=== PATIENT | male | born 1960 | race Caucasian/White ===

== ENCOUNTER 2019-02-27 14:38 | Inpatient (IN) | payer BC ==
--- NOTE | 2019-02-27 15:45 | PCM.HP ---
H&P History of Present Illness - General Date of Service: 02/27/19 Admit Problem/Dx: Admission Diagnosis/Problem Admission Diagnosis/Problem Cellulitis and abscess of foot Source of Information: Patient, Old Records History Limitations: Reports: No Limitations - History of Present Illness Onset of Symptoms: Reports: Gradual Duration of Symptoms: Reports: Week(s):, Chronic (since August of this year) Location: Reports: Lower Extremity, Right (foot, initially plantar aspect 1st distal metatarsal head now dorsal and plantar aspect, markedly worsened in past three days) Quality: Reports: Ache, Pressure Severity: Moderate Improves with: Reports: Rest, Other (elevation) Worsens with: Reports: Movement (walking, especially for extended periods) Context: Reports: Other (diabetes, complicated by morbid obesity) Associated Symptoms: Reports: Malaise, Other ("generally don't feel good last couple days") - Related Data Allergies/Adverse Reactions: Allergies Allergy/AdvReac Type Severity Reaction Status Date / Time No Known Allergies Allergy Verified 02/27/19 15:14 Home Medications: Home Meds Aspirin 325 mg PO DAILY 02/27/19 [History] Benazepril [Lotensin] 20 mg PO DAILY 02/27/19 [History] Dapagliflozin Propanediol [Farxiga] 10 mg PO DAILY 02/27/19 [History] Gluc 2KCl/Chondr/Lobo Hy/Hy Ac [Glucosamine & Chondroitin Cap] 1 cap PO BID 07/08 [History] Ibuprofen 400 mg PO BID@12,20 02/27/19 [History] Insulin Aspart [NovoLOG] 25 unit SUBCUT ACDINNER 02/27/19 [History] Insulin Aspart [NovoLOG] 28 unit SUBCUT ACBREAKFAST 02/27/19 [History] Insulin Aspart [NovoLOG] 28 unit SUBCUT ACLUNCH 02/27/19 [History] Insulin Detemir [Levemir Flextouch] 34 unit SUBCUT DAILY 02/27/19 [History] Insulin Detemir [Levemir Flextouch] 50 unit SUBCUT BEDTIME 02/27/19 [History] Magnesium Oxide/Mag AA Chelate [Magnesium] 300 mg PO DAILY 02/27/19 [History] Metoprolol Tartrate 25 mg PO BID 02/27/19 [History] Sulfamethoxazole/Trimethoprim [Bactrim Ds Tablet] 1 tab PO BID 02/27/19 [History ] atorvaSTATin Calcium [Lipitor] 40 mg PO DAILY 02/27/19 [History] metFORMIN [Glucophage] 1,000 mg PO BID 02/27/19 [History] Past Medical History Cardiovascular History: Reports: High Cholesterol, Hypertension Respiratory History: Reports: Sleep Apnea Other Respiratory History: uses CPAP Endocrine/Metabolic History: Reports: Diabetes, Type II, Obesity/BMI 30+ Other Endocrine/Metabolic History: insulin-dependent, with neuropathy and h/o foot ulcers Social & Family History - Tobacco Use Smoking Status *Q: Never Smoker - Caffeine Use Caffeine Use: Reports: Coffee - Recreational Drug Use Recreational Drug Use: No - Living Situation & Occupation Living situation: Reports: H&P Review of Systems - Review of Systems: Review Of Systems: ROS reveals no pertinent complaints other than HPI. Exam - Exam Exam: See Below - Vital Signs Vital Signs: Last Vital Signs Temp 98.6 F 02/27/19 14:50 Pulse 90 02/27/19 14:50 Resp 17 02/27/19 14:50 BP 134/62 02/27/19 14:50 Pulse Ox 95 02/27/19 14:50 Weight: 332 lb - Exam General: Alert, Oriented, 4 HEENT: Conjunctiva Clear, EACs Clear, EOMI, Hearing Intact, Mucosa Moist & [place] Neck: Supple, Trachea Midline Lungs: Clear to Auscultation, Normal Respiratory Effort Cardiovascular: Regular Rate, Regular Rhythm GI/Abdominal Exam: Normal Bowel Sounds, Soft, Non-Tender (Male) Exam: Deferred Rectal (Males) Exam: Deferred Back Exam: Normal Inspection Extremities: Other (marked swelling and erythema around the area of the R 1st MTP joint and great toe, with oozing wound dorsal aspect, maceration between 1st and 2nd toes and ulcer overlying plantar aspect 1st MTP joint) Skin: Warm, Dry, Wound ((see description above)) Neurological: Cranial Nerves Intact, Abnormal Gait Neuro Extensive - Mental Status: Alert, Oriented x3, Normal Mood/Affect, Memory Intact Psychiatric: Alert, Normal Affect, Normal Mood - Problem List (1) Cellulitis and abscess of foot SNOMED Code(s): 646037601, 069059021 ICD Code: L03.119 - CELLULITIS OF UNSPECIFIED PART OF LIMB; L02.619 - CUTANEOUS ABSCESS OF UNSPECIFIED FOOT Status: Acute Priority: High Current Visit: Yes Onset Date: ~09/06/18 Problem Details: First clinic visit for the cellulitis and diabetic was 09-06-18. He has had improvement but not resolution. He has been following with [facility] and Dr. Edis Tang, On Site Nurse on alternating weeks for the past couple months. Cellulitis symptoms acutely flared 2-3 days ago per pt. (2) HTN (hypertension) SNOMED Code(s): 68459378 ICD Code: I10 - ESSENTIAL (PRIMARY) HYPERTENSION Status: Chronic Priority : Medium Current Visit: Yes Qualifiers: Hypertension type: essential hypertension Qualified Code(s): I10 - Essential (primary) hypertension (3) Hyperlipemia SNOMED Code(s): 30061037 ICD Code: E78.5 - HYPERLIPIDEMIA, UNSPECIFIED Status: Chronic Priority: Medium Current Visit: Yes Qualifiers: Hyperlipidemia type: unspecified Qualified Code(s): E78.5 - Hyperlipidemia , unspecified (4) Obesity, Class III, BMI 40-49.9 (morbid obesity) SNOMED Code(s): 757797741, 418746304, [id number] ICD Code: E66.01 - MORBID (SEVERE) OBESITY DUE TO EXCESS CALORIES Status: Acute Current Visit: Yes Problem Details: complicating factor in healing of diabetic foot ulcers (5) Sleep apnea SNOMED Code(s): 78111677 ICD Code: G47.30 - SLEEP APNEA, UNSPECIFIED Status: Chronic Priority: Medium Current Visit: Yes Qualifiers: Sleep apnea type: obstructive Qualified Code(s): G47.33 - Obstructive sleep apnea (adult) (pediatric) (6) Diabetes mellitus due to underlying condition with complication SNOMED Code(s): 3195246, 77405520 ICD Code: E08.8 - DIABETES DUE TO UNDERLYING CONDITION W UNSP COMPLICATIONS Status: Chronic Priority: High Current Visit: Yes Problem Details: with neuropathy and h/o foot ulcers Problem List Initiated/Reviewed/Updated: Yes Orders Last 24hrs: Active Orders 24 hr Category Date Time Status Patient Status [ADT] Routine ADT 02/27/19 15:18 Ordered Accu Check [Blood Glucose Check, Bedside] [RC] BIDMEALS Care 02/27/19 15:35 Inactive Accu Check [Blood Glucose Check, Bedside] [RC] TIDMEALS Care 02/27/19 15:40 Ordered Bedrest Bathroom Privileges [RC] ASDIRECTED Care 02/27/19 15:18 Ordered Dressing Change [Wound Care] [RC] DAILY Care 02/27/19 15:32 Ordered Height and Weight [RC] UPON Care 02/27/19 15:18 Ordered May Shower [RC] ASDIRECTED Care 02/27/19 15:18 Ordered Oxygen Therapy [RC] PRN Care 02/27/19 15:18 Ordered VTE/DVT Education [RC] PER UNIT ROUTINE Care 02/27/19 15:18 Ordered Vital Signs [RC] Q4H Care 02/27/19 15:18 Ordered [place] [employer] Diet [DIET] Diet 02/27/19 Dinner Ordered C-REACTIVE PROTEIN [CHEM] AM Lab 02/28/19 05:11 Ordered C-REACTIVE PROTEIN [CHEM] AM Lab 03/01/19 05:11 Ordered C-REACTIVE PROTEIN [CHEM] AM Lab 03/02/19 05:11 Ordered C-REACTIVE PROTEIN [CHEM] AM Lab 03/03/19 05:11 Ordered CBC WITH AUTO DIFF [HEME] AM Lab 02/28/19 05:11 Ordered CBC WITH AUTO DIFF [HEME] AM Lab 03/01/19 05:11 Ordered CBC WITH AUTO DIFF [HEME] AM Lab 03/02/19 05:11 Ordered CBC WITH AUTO DIFF [HEME] AM Lab 03/03/19 05:11 Ordered COMPREHENSIVE METABOLIC PN,CMP [CHEM] AM Lab 02/28/19 05:11 Ordered COMPREHENSIVE METABOLIC PN,CMP [CHEM] AM Lab 03/01/19 05:11 Ordered COMPREHENSIVE METABOLIC PN,CMP [CHEM] AM Lab 03/02/19 05:11 Ordered COMPREHENSIVE METABOLIC PN,CMP [CHEM] AM Lab 03/03/19 05:11 Ordered CULTURE BLOOD [BC] Stat Lab 02/27/19 15:22 Ordered CULTURE BLOOD [BC] Stat Lab 02/27/19 15:22 Ordered CULTURE WOUND [RM] Stat Lab 02/27/19 15:18 Ordered LACTIC ACID [CHEM] Routine Lab 02/28/19 05:11 Ordered MAGNESIUM [CHEM] Routine Lab 02/28/19 05:11 Ordered Benazepril Med 02/28/19 08:00 Ordered 20 mg PO DAILY Dapagliflozin Propanediol [Farxiga] Med 02/28/19 08:00 Ordered 10 mg PO DAILY Enoxaparin [Lovenox] Med 02/27/19 15:30 Ordered 150 mg SUBCUT Q12H Insulin Aspart [NovoLOG] Med 02/27/19 15:45 Ordered 25 unit SUBCUT ACDINNER Insulin Aspart [NovoLOG] Med 02/28/19 07:30 Ordered 28 unit SUBCUT ACBREAKFAST Insulin Aspart [NovoLOG] Med 02/27/19 15:45 Ordered 28 unit SUBCUT ACLUNCH Insulin Detemir [Levemir Flextouch] Med 02/28/19 08:00 Ordered 34 unit SUBCUT DAILY Insulin Detemir [Levemir Flextouch] Med 02/27/19 20:00 Ordered 50 unit SUBCUT BEDTIME Magnesium Oxide/Mag AA Chelate [Magnesium] Med 02/28/19 08:00 Ordered 300 mg PO DAILY Metoprolol Tartrate [Lopressor] Med 02/27/19 18:00 Ordered 25 mg PO BID Pharmacy to Dose - Vancomycin Med 02/27/19 15:30 Ordered 1 dose .XX ASDIRECTED Sodium Chloride 0.9% [Saline Flush] Med 02/27/19 15:18 Ordered 10 ml FLUSH ASDIRECTED PRN atorvaSTATin [Lipitor] Med 02/27/19 20:00 Ordered 40 mg PO DAILY cefTAZidime Pentahydrate [Fortaz] Med 02/27/19 20:00 Ordered 1 gm IVPUSH Q12HR metFORMIN [Glucophage] Med 02/27/19 18:00 Ordered 1,000 mg PO BID Blood Culture x2 Reflex Set [OM.PC] Stat Oth 02/27/19 15:18 Ordered Saline Lock Insert [OM.PC] Routine Oth 02/27/19 15:18 Ordered Resuscitation Status Routine Resus Stat 02/27/19 15:18 Ordered Medication Orders Atorvastatin Calcium (Lipitor) 40 mg PO DAILY [facility] Ceftazidime (Fortaz) 1 gm IVPUSH Q12HR [facility] Enoxaparin Sodium (Lovenox) 150 mg SUBCUT Q12H [facility] Metformin HCl (Glucophage) 1,000 mg PO BID [facility] Metoprolol Tartrate (Lopressor) 25 mg PO BID [facility] Non-Formulary Medication (Benazepril) 20 mg PO DAILY [facility] Non-Formulary Medication (Dapagliflozin Propanediol [Farxiga]) 10 mg PO DAILY [facility] Non-Formulary Medication (Insulin Aspart [Novolog]) 25 unit SUBCUT ACDINNER [facility] Non-Formulary Medication (Insulin Aspart [Novolog]) 28 unit SUBCUT ACBREAKFAST [facility] Non-Formulary Medication (Insulin Aspart [Novolog]) 28 unit SUBCUT ACLUNCH [facility] Non-Formulary Medication (Insulin Detemir [Levemir Flextouch]) 34 unit SUBCUT DAILY [facility] Non-Formulary Medication (Insulin Detemir [Levemir Flextouch]) 50 unit SUBCUT BEDTIME [facility] Non-Formulary Medication (Magnesium Oxide/Mag Aa Chelate [Magnesium]) 300 mg PO DAILY [facility] Sodium Chloride (Saline Flush) 10 ml FLUSH ASDIRECTED PRN PRN Reason: Keep Vein Open Vancomycin HCl (Pharmacy To Dose - Vancomycin) 1 dose .XX ASDIRECTED [facility]CUAL Assessment/Plan Comment:: 02-27-19 Gabriella Smallwood PA-C 58 yr-old male patient admitted to [facility] for treatment of acute R foot cellulitis with diabetic ulcer, OP therapy failure. I did talk to Dr. Edis Tang, On Site Nurse earlier this week who is concerned that we have not been able to get this healed although it has made improvement. However today patient tells me that three nights ago he had lots of pain in this area, and two days ago the redness and swelling markedly worsened (this was after his last visit with Dr. Tang). He is started on IV Fortaz and Vanco. Lactic acid 2.7 today, will repeat with AM labs. Wound culture taken from drainage dorsal aspect of the 1st MTP joint/ toe. Dr. Tang had obtained a sample of the drainage from the ulcer earlier this week but I have not received a report on that yet. Bedrest is ordered to offload pressure on the foot, so subcut Lovenox is ordered prophylactically. His will bring in his CPAP from home, and we will continue home settings.
[2019-02-27] MEDS ORDERED: Enoxaparin 100 MG/1 ML Syringe SUBCUT SCH (16:00)
[2019-02-27] MEDS ORDERED: Vancomycin 1.5 GM in Sodium Chloride 0.9% 500 ML IV SCH (16:00)
[2019-02-27] MEDS: Vancomycin 2 GM in Sodium Chloride 0.9% 500 ML IV SCH (17:04)
[2019-02-27] MEDS: Sodium Chloride 0.9% 10 ML Syringe FLUSH PRN ×2 (17:05→19:44)
[2019-02-27] MEDS: Insulin Lispro 100 Units/ML 3 ML Vial SUBCUT SCH (18:03)
[2019-02-27] MEDS: metFORMIN 500 MG Tab PO SCH (18:06)
[2019-02-27] MEDS: Metoprolol Tartrate 25 MG Tab PO SCH (18:06)
[2019-02-27] MEDS: cefTAZidime 1 GM Vial IVPUSH SCH (19:44)
[2019-02-27] MEDS: atorvaSTATin 40 MG Tab PO SCH (19:49)
[2019-02-27] MEDS: Insulin Glarg,Human.Rec.Analog 100 UNIT/ML ML SUBCUT SCH (19:50)
[2019-02-27] MEDS: Enoxaparin 100 MG/1 ML Syringe SUBCUT SCH (19:54)
[2019-02-27] MEDS: Acetaminophen 325 MG Tab PO PRN (23:07)
[2019-02-28] MEDS ORDERED: metroNIDAZOLE/Normal Saline 500 MG in Premix Bag 1 BAG IV ONE (00:45)
[2019-02-28] MEDS: Vancomycin 2 GM in Sodium Chloride 0.9% 500 ML IV SCH ×2 (04:15→16:30)
[2019-02-28 07:27] LABS: CHLORIDE,CL 100 mmol/L (98-107); SODIUM,NA 137 mmol/L (136-145)
[2019-02-28] MEDS ORDERED: Insulin Lispro 100 Units/ML 3 ML Vial SUBCUT SCH ×2 (07:30→11:30)
[2019-02-28] MEDS: Insulin Glarg,Human.Rec.Analog 100 UNIT/ML ML SUBCUT SCH ×2 (08:23→20:58)
[2019-02-28] MEDS: Enoxaparin 100 MG/1 ML Syringe SUBCUT SCH (08:25)
[2019-02-28] MEDS: Metoprolol Tartrate 25 MG Tab PO SCH ×2 (08:29→21:02)
[2019-02-28] MEDS: DAPAGLIFLOZIN PROPANEDIOL 10 MG PO SCH (08:29)
[2019-02-28] MEDS: Benazepril 10 MG Tab PO SCH (08:30)
[2019-02-28] MEDS: atorvaSTATin 40 MG Tab PO SCH (08:30)
[2019-02-28] MEDS: metFORMIN 500 MG Tab PO SCH ×2 (08:31→17:32)
[2019-02-28] MEDS: cefTAZidime 1 GM Vial IVPUSH SCH (08:44)
[2019-02-28] MEDS: Sodium Chloride 0.9% 10 ML Syringe FLUSH PRN ×2 (08:46→09:53)
[2019-02-28] MEDS: metroNIDAZOLE/Normal Saline 500 MG in Premix Bag 1 BAG IV SCH ×2 (09:50→19:29)
--- NOTE | 2019-02-28 09:51 | PCM.SN ---
- Free Text/Narrative Note: 02-28-[address] called to say the culture he had taken 02-25 has grown out a coag- staph so far (that sample was taken from the ulcer).
[2019-02-28] MEDS: Magnesium Oxide 400 MG Tab PO SCH (11:21)
[2019-02-28] MEDS: Insulin Lispro 100 Units/ML 3 ML Vial SUBCUT SCH (17:31)
[2019-02-28] MEDS ORDERED: cefTRIAXone 2 GM Vial IVPUSH SCH (20:00)
[2019-02-28] MEDS: cefTRIAXone 1 GM in Sodium Chloride 0.9% 100 ML IV SCH (20:53)
[2019-02-28] MEDS: Sodium Chloride 0.9% 10 ML Syringe FLUSH SCH (21:03)
--- NOTE | 2019-02-28 23:22 | PCM.PN ---
- General Info Date of Service: 02/28/19 Admission Dx/Problem (Free Text): Admission Diagnosis/Problem Admission Diagnosis/Problem Cellulitis and abscess of foot Functional Status: Reports: Pain Controlled - Review of Systems General: Reports: No Symptoms HEENT: Reports: No Symptoms Pulmonary: Reports: No Symptoms Cardiovascular: Reports: No Symptoms Gastrointestinal: Reports: No Symptoms Genitourinary: Reports: No Symptoms Musculoskeletal: Reports: Foot Pain (swelling decreasing) Skin: Reports: Other (redness in foot decreasing) Neurological: Reports: Pre-Existing Deficit (peripheral neuropathy) Psychiatric: Reports: No Symptoms - Patient Data Vitals - Most Recent: Last Vital Signs Temp 98.1 F 02/28/19 20:00 Pulse 70 02/28/19 21:02 Resp 16 02/28/19 20:00 BP 110/50 L 02/28/19 21:02 Pulse Ox 97 02/28/19 20:00 Weight - Most Recent: 332 lb I&O - Last 24 Hours: Intake & Output 02/28/19 02/28/19 03/01/19 14:59 22:59 06:59 Intake Total 2340 900 Balance 2340 900 Lab Results Last 24 Hours: Laboratory Results - last 24 hr 02/27/19 02/28/19 02/28/19 Range/Units 23:57 06:35 06:35 WBC 8.7 (4.0-10.2) K/uL RBC 4.35 (4.33-5.41) M/uL Hgb 13.0 L (13.1-16.8) g/dL Hct 38.6 L (39.0-49.0) % MCV 88.7 (84.0-98.0) fL MCH 29.9 (28.2-33.3) pg MCHC 33.7 (31.7-36.0) g/dL RDW 14.1 (11.2-14.1) % Plt Count 284 (150-350) K/uL Neut % (Auto) 69.0 (45.0-80.0) % Lymph % (Auto) 17.9 (10.0-50.0) % [place] % (Auto) 8.0 (2.0-14.0) % Eos % (Auto) 4.4 (0.0-5.0) % Baso % (Auto) 0.7 (0.0-2.0) % Neut # (Auto) 6.03 (1.40-7.00) K/uL Lymph # (Auto) 1.56 (0.50-3.50) K/uL [place] # (Auto) 0.70 (0.00-1.00) K/uL Eos # (Auto) 0.38 (0.00-0.50) K/uL Baso # (Auto) 0.06 (0.00-0.20) K/uL Sodium 137 (136-145) mmol/L Potassium 4.2 (3.5-5.1) mmol/L Chloride 100 (98-107) mmol/L Carbon Dioxide 26.8 (21.0-32.0) mmol/L BUN 20 H (7-18) mg/dL Creatinine 0.78 (0.51-1.17) mg/dL Est Cr Clr Drug Dosing 111.92 mL/min Estimated GFR (MDRD) > 60 mL/min Glucose 180 H (74-106) mg/dL POC Glucose 116 H (65-110) mg/dl Lactic Acid (0.4-2.0) mmol/L Calcium 8.3 L (8.5-10.1) mg/dL Magnesium 1.9 (1.8-2.4) mg/dL Total Bilirubin 0.4 (0.2-1.0) mg/dL AST 17 (15-37) U/L ALT 29 (12-78) U/L Alkaline Phosphatase 118 H (46-116) IU/L C-Reactive Protein 4.7 H (<=0.9) mg/dL Total Protein 6.5 (6.4-8.2) g/dL Albumin 3.0 L (3.4-5.0) g/dL Vancomycin Trough (10-20) ug/mL 02/28/19 02/28/19 02/28/19 Range/Units 06:35 07:22 11:19 WBC (4.0-10.2) K/uL RBC (4.33-5.41) M/uL Hgb (13.1-16.8) g/dL Hct (39.0-49.0) % MCV (84.0-98.0) fL MCH (28.2-33.3) pg MCHC (31.7-36.0) g/dL RDW (11.2-14.1) % Plt Count (150-350) K/uL Neut % (Auto) (45.0-80.0) % Lymph % (Auto) (10.0-50.0) % [place] % (Auto) (2.0-14.0) % Eos % (Auto) (0.0-5.0) % Baso % (Auto) (0.0-2.0) % Neut # (Auto) (1.40-7.00) K/uL Lymph # (Auto) (0.50-3.50) K/uL [place] # (Auto) (0.00-1.00) K/uL Eos # (Auto) (0.00-0.50) K/uL Baso # (Auto) (0.00-0.20) K/uL Sodium (136-145) mmol/L Potassium (3.5-5.1) mmol/L Chloride (98-107) mmol/L Carbon Dioxide (21.0-32.0) mmol/L BUN (7-18) mg/dL Creatinine (0.51-1.17) mg/dL Est Cr Clr Drug Dosing mL/min Estimated GFR (MDRD) mL/min Glucose (74-106) mg/dL POC Glucose 179 H 145 H (65-110) mg/dl Lactic Acid 0.9 (0.4-2.0) mmol/L Calcium (8.5-10.1) mg/dL Magnesium (1.8-2.4) mg/dL Total Bilirubin (0.2-1.0) mg/dL AST (15-37) U/L ALT (12-78) U/L Alkaline Phosphatase (46-116) IU/L C-Reactive Protein (<=0.9) mg/dL Total Protein (6.4-8.2) g/dL Albumin (3.4-5.0) g/dL Vancomycin Trough (10-20) ug/mL 02/28/19 02/28/19 Range/Units 15:23 17:02 WBC (4.0-10.2) K/uL RBC (4.33-5.41) M/uL Hgb (13.1-16.8) g/dL Hct (39.0-49.0) % MCV (84.0-98.0) fL MCH (28.2-33.3) pg MCHC (31.7-36.0) g/dL RDW (11.2-14.1) % Plt Count (150-350) K/uL Neut % (Auto) (45.0-80.0) % Lymph % (Auto) (10.0-50.0) % [place] % (Auto) (2.0-14.0) % Eos % (Auto) (0.0-5.0) % Baso % (Auto) (0.0-2.0) % Neut # (Auto) (1.40-7.00) K/uL Lymph # (Auto) (0.50-3.50) K/uL [place] # (Auto) (0.00-1.00) K/uL Eos # (Auto) (0.00-0.50) K/uL Baso # (Auto) (0.00-0.20) K/uL Sodium (136-145) mmol/L Potassium (3.5-5.1) mmol/L Chloride (98-107) mmol/L Carbon Dioxide (21.0-32.0) mmol/L BUN (7-18) mg/dL Creatinine (0.51-1.17) mg/dL Est Cr Clr Drug Dosing mL/min Estimated GFR (MDRD) mL/min Glucose (74-106) mg/dL POC Glucose 85 (65-110) mg/dl Lactic Acid (0.4-2.0) mmol/L Calcium (8.5-10.1) mg/dL Magnesium (1.8-2.4) mg/dL Total Bilirubin (0.2-1.0) mg/dL AST (15-37) U/L ALT (12-78) U/L Alkaline Phosphatase (46-116) IU/L C-Reactive Protein (<=0.9) mg/dL Total Protein (6.4-8.2) g/dL Albumin (3.4-5.0) g/dL Vancomycin Trough 11.5 (10-20) ug/mL [place] Results Last 24 Hours: Microbiology 02/27/19 16:20 Aerobic Blood Culture - Preliminary Blood - Venous - Lab Draw NO GROWTH AFTER 1 DAY Anaerobic Blood Culture - Preliminary NO GROWTH AFTER 1 DAY 07/11/19 15:45 Aerobic Blood Culture - Preliminary Blood - Venous NO GROWTH AFTER 1 DAY Anaerobic Blood Culture - Preliminary NO GROWTH AFTER 1 DAY 02/27/19 15:00 Gram Stain - Final Foot, Right Med Orders - Current: Current Medications Acetaminophen (Tylenol) 650 mg PO Q4H PRN PRN Reason: pain, fever >100.5 Last Admin: 02/27/19 23:07 Dose: 650 mg Atorvastatin Calcium (Lipitor) 40 mg PO DAILY [facility] Last Admin: 02/28/19 08:30 Dose: 40 mg Benazepril HCl (Lotensin) 20 mg PO DAILY [facility] Last Admin: 02/28/19 08:30 Dose: 20 mg Enoxaparin Sodium (Lovenox) 40 mg SUBCUT DAILY [facility] Vancomycin HCl 2 gm/ Sodium (Chloride) 500 mls @ 220 mls/hr IV Q12H [facility] Last Admin: 02/28/19 16:30 Dose: 220 mls/hr Metronidazole 500 mg/ Premix 100 mls @ 100 mls/hr IV Q8H [facility] Last Admin: 02/28/19 19:29 Dose: 100 mls/hr Ceftriaxone Sodium 1 gm/ (Sodium Chloride) 100 mls @ 200 mls/hr IV Q12H [facility] Last Admin: 02/28/19 20:53 Dose: 200 mls/hr Insulin Glargine (Lantus) 34 unit SUBCUT DAILY [facility] Last Admin: 02/28/19 08:23 Dose: 34 units Insulin Glargine (Lantus) 50 unit SUBCUT BEDTIME [facility] Last Admin: 02/28/19 20:58 Dose: 50 unit Insulin Human Lispro (Humalog) 25 unit SUBCUT DAILY@1730 [facility] Last Admin: 02/28/19 17:31 Dose: 25 units Insulin Human Lispro (Humalog) 28 unit SUBCUT ACBREAKFAST [facility] Last Admin: 02/28/19 08:21 Dose: 28 units Insulin Human Lispro (Humalog) 28 unit SUBCUT DAILY@1130 [facility] Last Admin: 02/28/19 11:19 Dose: 28 units Magnesium Oxide (Magnesium Oxide) 400 mg PO DAILY [facility] Last Admin: 02/28/19 11:21 Dose: 400 mg Metformin HCl (Glucophage) 1,000 mg PO BID [facility] Last Admin: 02/28/19 17:32 Dose: 1,000 mg Metoprolol Tartrate (Lopressor) 25 mg PO Q12HR [facility] Last Admin: 02/28/19 21:02 Dose: 25 mg #Own Med# Dapagliflozin Propanediol [Farxiga ] 10 Mg) 10 mg PO DAILY [facility] Last Admin: 02/28/19 08:29 Dose: 10 mg Sodium Chloride (Saline Flush) 10 ml FLUSH ASDIRECTED PRN PRN Reason: Keep Vein Open Last Admin: 02/28/19 09:53 Dose: 10 ml Sodium Chloride (Saline Flush) 10 ml FLUSH Q12HR [facility] Last Admin: 02/28/19 21:03 Dose: 10 ml Vancomycin HCl (Pharmacy To Dose - Vancomycin) 1 dose .XX ASDIRECTED [facility] Discontinued Medications Ceftazidime (Fortaz) 1 gm IVPUSH Q12HR [facility] Last Admin: 02/28/19 08:44 Dose: 1 gm Ceftriaxone Sodium (Rocephin) 1 gm IVPUSH Q12HR [facility] Enoxaparin Sodium (Lovenox) 150 mg SUBCUT Q12H [facility] Last Admin: 02/27/19 17:06 Dose: 150 mg Enoxaparin Sodium (Lovenox) 150 mg SUBCUT Q12H [facility] Last Admin: 02/28/19 08:25 Dose: 150 mg Metronidazole 500 mg/ Premix 100 mls @ 100 mls/hr IV ONETIME ONE Stop: 02/28/19 01:44 Last Admin: 02/28/19 00:56 Dose: 100 mls/hr Metoprolol Tartrate (Lopressor) 25 mg PO BID [facility] Last Admin: 02/28/19 08:29 Dose: 25 mg - Exam Quality Assessment: DVT Prophylaxis, Skin Breakdown (foot diabetic ulcer) General: Alert, Cooperative, No Acute Distress HEENT: Mucous Membr. Moist/[place] Neck: Trachea Midline, No JVD Lungs: Clear to Auscultation, Normal Respiratory Effort Cardiovascular: Regular Rate, Regular Rhythm GI/Abdominal Exam: Soft, Non-Tender, No Distention (Male) Exam: Deferred Back Exam: Normal Inspection Extremities: Pedal Edema, Increased Warmth (improving), Redness (improving) Skin: Warm, Dry, Intact Wound/Incisions: Drainage, Erythema Improving Neurological: No New Focal Deficit Psy/Mental Status: Alert, Normal Affect, Normal Mood - Problem List & Annotations (1) Diabetes mellitus due to underlying condition with foot ulcer SNOMED Code(s): 4461389 Code(s): E08.621 - DIABETES MELLITUS DUE TO UNDERLYING CONDITION W FOOT ULCER ; L97.509 - NON-PRESSURE CHRONIC ULCER OTH PRT UNSP FOOT W UNSP SEVERITY Status: Acute Priority: High Current Visit: Yes Qualifiers: Diabetes mellitus termination clerk insulin use: with termination clerk use Qualified Code( s): E08.621 - Diabetes mellitus due to underlying condition with foot ulcer; L97.509 - Non-pressure chronic ulcer of other part of unspecified foot with unspecified severity; Z79.4 - termite control servicer (current) use of insulin (2) Cellulitis and abscess of foot SNOMED Code(s): 471224617, 070518769 Code(s): L03.119 - CELLULITIS OF UNSPECIFIED PART OF LIMB; L02.619 - CUTANEOUS ABSCESS OF UNSPECIFIED FOOT Status: Acute Priority: High Current Visit: Yes Onset Date: ~09/06/18 Annotation/Comment:: First clinic visit for the cellulitis and diabetic was 09-06-18. He has had improvement but not resolution. He has been following with [facility] and Dr. Edis Tang, Chief Estimator on alternating weeks for the past couple months. Cellulitis symptoms acutely flared 2-3 days ago per pt. (3) Obesity, Class III, BMI 40-49.9 (morbid obesity) SNOMED Code(s): 923278726, 590945321, 38186521835644 Code(s): E66.01 - MORBID (SEVERE) OBESITY DUE TO EXCESS CALORIES Status: Acute Current Visit: Yes Annotation/Comment:: complicating factor in healing of diabetic foot ulcers (4) HTN (hypertension) SNOMED Code(s): 67357977 Code(s): I10 - ESSENTIAL (PRIMARY) HYPERTENSION Status: Chronic Priority : Medium Current Visit: Yes Qualifiers: Hypertension type: essential hypertension Qualified Code(s): I10 - Essential (primary) hypertension (5) Hyperlipemia SNOMED Code(s): 41198695 Code(s): E78.5 - HYPERLIPIDEMIA, UNSPECIFIED Status: Chronic Priority: Medium Current Visit: Yes Qualifiers: Hyperlipidemia type: unspecified Qualified Code(s): E78.5 - Hyperlipidemia , unspecified (6) Sleep apnea SNOMED Code(s): 87348788 Code(s): G47.30 - SLEEP APNEA, UNSPECIFIED Status: Chronic Priority: Medium Current Visit: Yes Qualifiers: Sleep apnea type: obstructive Qualified Code(s): G47.33 - Obstructive sleep apnea (adult) (pediatric) - Problem List Review Problem List Initiated/Reviewed/Updated: Yes - My Orders Last 24 Hours: My Active Orders 02/27/19 22:51 Acetaminophen [Tylenol] 650 mg PO Q4H PRN 02/28/19 10:00 metroNIDAZOLE/Normal Saline [Flagyl 500 MG in NS 100 ML] 500 mg Premix Bag 1 bag IV Q8H 02/28/19 20:00 Metoprolol Tartrate [Lopressor] 25 mg PO Q12HR Sodium Chloride 0.9% [Saline Flush] 10 ml FLUSH Q12HR cefTRIAXone [Rocephin] 1 gm Sodium Chloride 0.9% [Normal Saline] 100 ml IV Q12H 03/01/19 05:11 MAGNESIUM [CHEM] Routine 03/01/19 08:00 Enoxaparin [Lovenox] 40 mg SUBCUT DAILY - Plan Plan:: 02-27-19 Gabriella Smallwood PA-C 58 yr-old male patient admitted to status for treatment of acute R foot cellulitis with diabetic ulcer, OP therapy failure. I did talk to Dr. Edis Tang, Chief Estimator earlier this week who is concerned that we have not been able to get this healed although it has made improvement. However today patient tells me that three nights ago he had lots of pain in this area, and two days ago the redness and swelling markedly worsened (this was after his last visit with Dr. Tang). He is started on IV Fortaz and Vanco. Lactic acid 2.7 today, will repeat with AM labs. Wound culture taken from drainage dorsal aspect of the 1st MTP joint/ toe. Dr. Tang had obtained a sample of the drainage from the ulcer earlier this week but I have not received a report on that yet. Bedrest is ordered to offload pressure on the foot, so subcut Lovenox is ordered prophylactically. His will bring in his CPAP from home, and we will continue home settings. 02/28/19 Ingrid Stack MD Swelling and redness have decreased in the right foot. Initial C&S staph. Continue IV antibiotics.
[2019-03-01] MEDS: metroNIDAZOLE/Normal Saline 500 MG in Premix Bag 1 BAG IV SCH ×3 (03:18→17:59)
[2019-03-01] MEDS: Sodium Chloride 0.9% 10 ML Syringe FLUSH PRN ×2 (03:19→10:16)
[2019-03-01] MEDS: Vancomycin 2 GM in Sodium Chloride 0.9% 500 ML IV SCH ×2 (03:20→15:31)
[2019-03-01 07:25] LABS: CHLORIDE,CL 102 mmol/L (98-107); SODIUM,NA 140 mmol/L (136-145)
[2019-03-01] MEDS: Enoxaparin 40 MG/0.4 ML Syringe SUBCUT SCH (07:46)
[2019-03-01] MEDS: cefTRIAXone 1 GM in Sodium Chloride 0.9% 100 ML IV SCH ×2 (07:46→19:56)
[2019-03-01] MEDS: Sodium Chloride 0.9% 10 ML Syringe FLUSH SCH ×2 (07:48→20:03)
[2019-03-01] MEDS: Insulin Glarg,Human.Rec.Analog 100 UNIT/ML ML SUBCUT SCH ×2 (07:48→20:38)
[2019-03-01] MEDS: Insulin Lispro 100 Units/ML 3 ML Vial SUBCUT SCH ×3 (07:52→20:24)
[2019-03-01] MEDS: DAPAGLIFLOZIN PROPANEDIOL 10 MG PO SCH (07:53)
[2019-03-01] MEDS: Metoprolol Tartrate 25 MG Tab PO SCH ×2 (07:54→19:55)
[2019-03-01] MEDS: Benazepril 10 MG Tab PO SCH (07:54)
[2019-03-01] MEDS: metFORMIN 500 MG Tab PO SCH ×2 (07:55→17:58)
[2019-03-01] MEDS: atorvaSTATin 40 MG Tab PO SCH (07:55)
[2019-03-01] MEDS: Magnesium Oxide 400 MG Tab PO SCH (07:56)
[2019-03-01] MEDS: Acetaminophen 325 MG Tab PO PRN ×2 (12:31→20:34)
[2019-03-01] MEDS ORDERED: Insulin Lispro 100 Units/ML 3 ML Vial SUBCUT ONE (18:30)
[2019-03-01] MEDS ORDERED: Insulin Glarg,Human.Rec.Analog 100 UNIT/ML ML SUBCUT SCH (20:00)
--- NOTE | 2019-03-01 23:20 | PCM.PN ---
- General Info Date of Service: 03/01/19 Admission Dx/Problem (Free Text): Admission Diagnosis/Problem Admission Diagnosis/Problem Cellulitis and abscess of foot Functional Status: Reports: Pain Controlled - Review of Systems General: Reports: Other (low blood sugars) HEENT: Reports: No Symptoms Pulmonary: Reports: No Symptoms Cardiovascular: Reports: No Symptoms Gastrointestinal: Reports: No Symptoms Genitourinary: Reports: No Symptoms Musculoskeletal: Reports: Foot Pain (right has decreased) Skin: Reports: No Symptoms Neurological: Reports: No Symptoms Psychiatric: Reports: No Symptoms - Patient Data Vitals - Most Recent: Last Vital Signs Temp 98.2 F 03/01/19 19:30 Pulse 74 03/01/19 19:55 Resp 16 03/01/19 19:30 BP 113/59 L 03/01/19 19:55 Pulse Ox 96 03/01/19 19:30 Weight - Most Recent: 332 lb I&O - Last 24 Hours: Intake & Output 03/01/19 03/01/19 03/02/19 14:59 22:59 06:59 Intake Total 540 300 Balance 540 300 Lab Results Last 24 Hours: Laboratory Results - last 24 hr 03/01/19 03/01/19 03/01/19 Range/Units 07:00 07:00 07:21 WBC 7.6 (4.0-10.2) K/uL RBC 4.46 (4.33-5.41) M/uL Hgb 13.3 (13.1-16.8) g/dL Hct 39.7 (39.0-49.0) % MCV 89.0 (84.0-98.0) fL MCH 29.8 (28.2-33.3) pg MCHC 33.5 (31.7-36.0) g/dL RDW 14.1 (11.2-14.1) % Plt Count 264 (150-350) K/uL Neut % (Auto) 69.8 (45.0-80.0) % Lymph % (Auto) 16.4 (10.0-50.0) % Foard % (Auto) 8.9 (2.0-14.0) % Eos % (Auto) 4.1 (0.0-5.0) % Baso % (Auto) 0.8 (0.0-2.0) % Neut # (Auto) 5.34 (1.40-7.00) K/uL Lymph # (Auto) 1.25 (0.50-3.50) K/uL Foard # (Auto) 0.68 (0.00-1.00) K/uL Eos # (Auto) 0.31 (0.00-0.50) K/uL Baso # (Auto) 0.06 (0.00-0.20) K/uL Sodium 140 (136-145) mmol/L Potassium 4.2 (3.5-5.1) mmol/L Chloride 102 (98-107) mmol/L Carbon Dioxide 30.5 (21.0-32.0) mmol/L BUN 16 (7-18) mg/dL Creatinine 0.80 (0.51-1.17) mg/dL Est Cr Clr Drug Dosing 109.13 mL/min Estimated GFR (MDRD) > 60 mL/min Glucose 102 (74-106) mg/dL POC Glucose 92 (65-110) mg/dl Calcium 8.5 (8.5-10.1) mg/dL Magnesium 1.7 L (1.8-2.4) mg/dL Total Bilirubin 0.3 (0.2-1.0) mg/dL AST 13 L (15-37) U/L ALT 26 (12-78) U/L Alkaline Phosphatase 116 (46-116) IU/L C-Reactive Protein 3.0 H (<=0.9) mg/dL Total Protein 6.4 (6.4-8.2) g/dL Albumin 2.9 L (3.4-5.0) g/dL 03/01/19 03/01/19 03/01/19 Range/Units 10:40 11:40 17:12 WBC (4.0-10.2) K/uL RBC (4.33-5.41) M/uL Hgb (13.1-16.8) g/dL Hct (39.0-49.0) % MCV (84.0-98.0) fL MCH (28.2-33.3) pg MCHC (31.7-36.0) g/dL RDW (11.2-14.1) % Plt Count (150-350) K/uL Neut % (Auto) (45.0-80.0) % Lymph % (Auto) (10.0-50.0) % Foard % (Auto) (2.0-14.0) % Eos % (Auto) (0.0-5.0) % Baso % (Auto) (0.0-2.0) % Neut # (Auto) (1.40-7.00) K/uL Lymph # (Auto) (0.50-3.50) K/uL Foard # (Auto) (0.00-1.00) K/uL Eos # (Auto) (0.00-0.50) K/uL Baso # (Auto) (0.00-0.20) K/uL Sodium (136-145) mmol/L Potassium (3.5-5.1) mmol/L Chloride (98-107) mmol/L Carbon Dioxide (21.0-32.0) mmol/L BUN (7-18) mg/dL Creatinine (0.51-1.17) mg/dL Est Cr Clr Drug Dosing mL/min Estimated GFR (MDRD) mL/min Glucose (74-106) mg/dL POC Glucose 53 L 76 191 H (65-110) mg/dl Calcium (8.5-10.1) mg/dL Magnesium (1.8-2.4) mg/dL Total Bilirubin (0.2-1.0) mg/dL AST (15-37) U/L ALT (12-78) U/L Alkaline Phosphatase (46-116) IU/L C-Reactive Protein (<=0.9) mg/dL Total Protein (6.4-8.2) g/dL Albumin (3.4-5.0) g/dL 03/01/19 Range/Units 22:50 WBC (4.0-10.2) K/uL RBC (4.33-5.41) M/uL Hgb (13.1-16.8) g/dL Hct (39.0-49.0) % MCV (84.0-98.0) fL MCH (28.2-33.3) pg MCHC (31.7-36.0) g/dL RDW (11.2-14.1) % Plt Count (150-350) K/uL Neut % (Auto) (45.0-80.0) % Lymph % (Auto) (10.0-50.0) % Foard % (Auto) (2.0-14.0) % Eos % (Auto) (0.0-5.0) % Baso % (Auto) (0.0-2.0) % Neut # (Auto) (1.40-7.00) K/uL Lymph # (Auto) (0.50-3.50) K/uL Foard # (Auto) (0.00-1.00) K/uL Eos # (Auto) (0.00-0.50) K/uL Baso # (Auto) (0.00-0.20) K/uL Sodium (136-145) mmol/L Potassium (3.5-5.1) mmol/L Chloride (98-107) mmol/L Carbon Dioxide (21.0-32.0) mmol/L BUN (7-18) mg/dL Creatinine (0.51-1.17) mg/dL Est Cr Clr Drug Dosing mL/min Estimated GFR (MDRD) mL/min Glucose (74-106) mg/dL POC Glucose 159 H (65-110) mg/dl Calcium (8.5-10.1) mg/dL Magnesium (1.8-2.4) mg/dL Total Bilirubin (0.2-1.0) mg/dL AST (15-37) U/L ALT (12-78) U/L Alkaline Phosphatase (46-116) IU/L C-Reactive Protein (<=0.9) mg/dL Total Protein (6.4-8.2) g/dL Albumin (3.4-5.0) g/dL [place]ong Results Last 24 Hours: Microbiology 02/27/19 16:20 Aerobic Blood Culture - Preliminary Blood - Venous - Lab Draw NO GROWTH AFTER 2 DAYS Anaerobic Blood Culture - Preliminary NO GROWTH AFTER 2 DAYS 02/27/19 15:45 Aerobic Blood Culture - Preliminary Blood - Venous NO GROWTH AFTER 2 DAYS Anaerobic Blood Culture - Preliminary NO GROWTH AFTER 2 DAYS 02/27/19 15:00 Gram Stain - Final Foot, Right Wound Culture - Preliminary Diphtheroids Med Orders - Current: Current Medications Acetaminophen (Tylenol) 650 mg PO Q4H PRN PRN Reason: pain, fever >100.5 Last Admin: 03/01/19 20:34 Dose: 650 mg Atorvastatin Calcium (Lipitor) 40 mg PO DAILY [facility] Last Admin: 03/01/19 07:55 Dose: 40 mg Benazepril HCl (Lotensin) 20 mg PO DAILY [facility] Last Admin: 03/01/19 07:54 Dose: 20 mg Enoxaparin Sodium (Lovenox) 40 mg SUBCUT DAILY [facility] Last Admin: 03/01/19 07:46 Dose: 40 mg Vancomycin HCl 2 gm/ Sodium (Chloride) 500 mls @ 220 mls/hr IV Q12H [facility] Last Admin: 03/01/19 15:31 Dose: 220 mls/hr Metronidazole 500 mg/ Premix 100 mls @ 100 mls/hr IV Q8H [facility] Last Admin: 03/01/19 17:59 Dose: 100 mls/hr Ceftriaxone Sodium 1 gm/ (Sodium Chloride) 100 mls @ 200 mls/hr IV Q12H [facility] Last Admin: 03/01/19 19:56 Dose: 200 mls/hr Insulin Glargine (Lantus) 34 unit SUBCUT DAILY [facility] Last Admin: 03/01/19 07:48 Dose: 34 units Insulin Glargine (Lantus) 25 unit SUBCUT BEDTIME [facility] Last Admin: 03/01/19 20:38 Dose: 25 units Insulin Human Lispro (Humalog) 12 unit SUBCUT TID@0800,1200,1800 [facility] Magnesium Oxide (Magnesium Oxide) 400 mg PO DAILY [facility] Last Admin: 03/01/19 07:56 Dose: 400 mg Metformin HCl (Glucophage) 1,000 mg PO BID [facility] Last Admin: 03/01/19 17:58 Dose: 1,000 mg Metoprolol Tartrate (Lopressor) 25 mg PO Q12HR [facility] Last Admin: 03/01/19 19:55 Dose: 25 mg #Own Med# Dapagliflozin Propanediol [Farxiga ] 10 Mg) 10 mg PO DAILY [facility] Last Admin: 03/01/19 07:53 Dose: 10 mg Sodium Chloride (Saline Flush) 10 ml FLUSH ASDIRECTED PRN PRN Reason: Keep Vein Open Last Admin: 03/01/19 10:16 Dose: 10 ml Sodium Chloride (Saline Flush) 10 ml FLUSH Q12HR [facility] Last Admin: 03/01/19 20:03 Dose: 10 ml Vancomycin HCl (Pharmacy To Dose - Vancomycin) 1 dose .XX ASDIRECTED [facility] Discontinued Medications Ceftazidime (Fortaz) 1 gm IVPUSH Q12HR [facility] Last Admin: 02/28/19 08:44 Dose: 1 gm Ceftriaxone Sodium (Rocephin) 1 gm IVPUSH Q12HR [facility] Enoxaparin Sodium (Lovenox) 150 mg SUBCUT Q12H [facility] Last Admin: 02/27/19 17:06 Dose: 150 mg Enoxaparin Sodium (Lovenox) 150 mg SUBCUT Q12H [facility] Last Admin: 02/28/19 08:25 Dose: 150 mg Metronidazole 500 mg/ Premix 100 mls @ 100 mls/hr IV ONETIME ONE Stop: 02/28/19 01:44 Last Admin: 02/28/19 00:56 Dose: 100 mls/hr Insulin Glargine (Lantus) 50 unit SUBCUT BEDTIME [facility] Last Admin: 02/28/19 20:58 Dose: 50 unit Insulin Glargine (Lantus) 25 unit SUBCUT BEDTIME [facility] Last Admin: 03/01/19 20:52 Dose: Not Given Insulin Human Lispro (Humalog) 25 unit SUBCUT DAILY@1730 [facility] Last Admin: 02/28/19 17:31 Dose: 25 units Insulin Human Lispro (Humalog) 28 unit SUBCUT ACBREAKFAST [facility] Last Admin: 02/28/19 08:21 Dose: 28 units Insulin Human Lispro (Humalog) 28 unit SUBCUT DAILY@1130 [facility] Last Admin: 02/28/19 11:19 Dose: 28 units Insulin Human Lispro (Humalog) 0 unit SUBCUT TID@0800,1200,1800 [facility] Last Admin: 03/01/19 20:24 Dose: Not Given Insulin Human Lispro (Humalog) 12 unit SUBCUT ONETIME ONE Stop: 03/01/19 18:31 Last Admin: 03/01/19 18:29 Dose: 12 units Metoprolol Tartrate (Lopressor) 25 mg PO BID [facility] Last Admin: 02/28/19 08:29 Dose: 25 mg - Exam Quality Assessment: DVT Prophylaxis General: Alert, Cooperative, No Acute Distress HEENT: Pupils Equal, Pupils Reactive, Mucous Membr. Moist/[place] Neck: Trachea Midline, No JVD Lungs: Clear to Auscultation, Normal Respiratory Effort Cardiovascular: Regular Rate, Regular Rhythm GI/Abdominal Exam: Soft, Non-Tender, No Distention (Male) Exam: Deferred Back Exam: Normal Inspection Extremities: Pedal Edema (right, has decreased) Skin: Warm, Dry, Intact Wound/Incisions: Drainage (decreasing), Erythema Improving, Other (right diabetic foot ulcer dorsum and plantar surface) Neurological: No New Focal Deficit Psy/Mental Status: Alert, Normal Affect, Normal Mood - Problem List & Annotations (1) Diabetes mellitus due to underlying condition with foot ulcer SNOMED Code(s): 3134320 Code(s): E08.621 - DIABETES MELLITUS DUE TO UNDERLYING CONDITION W FOOT ULCER ; L97.509 - NON-PRESSURE CHRONIC ULCER OTH PRT UNSP FOOT W UNSP SEVERITY Status: Acute Priority: High Current Visit: Yes Qualifiers: Diabetes mellitus usp insulin use: with usp use Qualified Code( s): E08.621 - Diabetes mellitus due to underlying condition with foot ulcer; L97.509 - Non-pressure chronic ulcer of other part of unspecified foot with unspecified severity; Z79.4 - longterm (current) use of insulin (2) Cellulitis and abscess of foot SNOMED Code(s): 162745064, 675683711 Code(s): L03.119 - CELLULITIS OF UNSPECIFIED PART OF LIMB; L02.619 - CUTANEOUS ABSCESS OF UNSPECIFIED FOOT Status: Acute Priority: High Current Visit: Yes Onset Date: ~09/06/18 Annotation/Comment:: First clinic visit for the cellulitis and diabetic was 09-06-18. He has had improvement but not resolution. He has been following with [facility] and Dr. Edis Tang, Computer Operations Manager on alternating weeks for the past couple months. Cellulitis symptoms acutely flared 2-3 days ago per pt. (3) Obesity, Class III, BMI 40-49.9 (morbid obesity) SNOMED Code(s): 746538415, 104941307, 87562782951252 Code(s): E66.01 - MORBID (SEVERE) OBESITY DUE TO EXCESS CALORIES Status: Acute Current Visit: Yes Annotation/Comment:: complicating factor in healing of diabetic foot ulcers (4) HTN (hypertension) SNOMED Code(s): 28607819 Code(s): I10 - ESSENTIAL (PRIMARY) HYPERTENSION Status: Chronic Priority : Medium Current Visit: Yes Qualifiers: Hypertension type: essential hypertension Qualified Code(s): I10 - Essential (primary) hypertension (5) Hyperlipemia SNOMED Code(s): 71834691 Code(s): E78.5 - HYPERLIPIDEMIA, UNSPECIFIED Status: Chronic Priority: Medium Current Visit: Yes Qualifiers: Hyperlipidemia type: unspecified Qualified Code(s): E78.5 - Hyperlipidemia , unspecified (6) Sleep apnea SNOMED Code(s): 03030761 Code(s): G47.30 - SLEEP APNEA, UNSPECIFIED Status: Chronic Priority: Medium Current Visit: Yes Qualifiers: Sleep apnea type: obstructive Qualified Code(s): G47.33 - Obstructive sleep apnea (adult) (pediatric) - Problem List Review Problem List Initiated/Reviewed/Updated: Yes - My Orders Last 24 Hours: My Active Orders 03/01/19 08:00 Enoxaparin [Lovenox] 40 mg SUBCUT DAILY 03/01/19 20:15 Insulin Glarg,Human.Rec.Analog [LantUS] 25 unit SUBCUT BEDTIME 03/02/19 08:00 Insulin Lispro [HumaLOG] 12 unit SUBCUT TID@0800,1200,1800 03/03/19 08:00 Foot w wo Cont Rt [MR] Routine - Plan Plan:: 02-27-19 Gabriella Smallwood PA-C 58 yr-old male patient admitted to [facility] for treatment of acute R foot cellulitis with diabetic ulcer, OP therapy failure. I did talk to Dr. Edis Tang, Computer Operations Manager earlier this week who is concerned that we have not been able to get this healed although it has made improvement. However today patient tells me that three nights ago he had lots of pain in this area, and two days ago the redness and swelling markedly worsened (this was after his last visit with Dr. Tang). He is started on IV Fortaz and Vanco. Lactic acid 2.7 today, will repeat with AM labs. Wound culture taken from drainage dorsal aspect of the 1st MTP joint/ toe. Dr. Tang had obtained a sample of the drainage from the ulcer earlier this week but I have not received a report on that yet. Bedrest is ordered to offload pressure on the foot, so subcut Lovenox is ordered prophylactically. His will bring in his CPAP from home, and we will continue home settings. 02/28/19 Ingrid Stack MD Swelling and redness have decreased in the right foot. Initial C&S staph. Continue IV antibiotics. 03/01/19 Ingrid Stack MD Swelling and redness of right foot continues to decrease. Drainage is decreasing. Continue IV antibiotics.
[2019-03-02] MEDS: metroNIDAZOLE/Normal Saline 500 MG in Premix Bag 1 BAG IV SCH ×3 (02:50→19:22)
[2019-03-02] MEDS: Sodium Chloride 0.9% 10 ML Syringe FLUSH PRN ×4 (02:50→16:01)
[2019-03-02] MEDS: Vancomycin 2 GM in Sodium Chloride 0.9% 500 ML IV SCH ×2 (03:36→15:59)
[2019-03-02 07:26] LABS: CHLORIDE,CL 103 mmol/L (98-107); SODIUM,NA 140 mmol/L (136-145)
[2019-03-02] MEDS: DAPAGLIFLOZIN PROPANEDIOL 10 MG PO SCH (08:09)
[2019-03-02] MEDS: metFORMIN 500 MG Tab PO SCH ×2 (08:10→17:13)
[2019-03-02] MEDS: Insulin Lispro 100 Units/ML 3 ML Vial SUBCUT SCH ×3 (08:12→17:14)
[2019-03-02] MEDS: Insulin Glarg,Human.Rec.Analog 100 UNIT/ML ML SUBCUT SCH ×2 (08:13→20:40)
[2019-03-02] MEDS: atorvaSTATin 40 MG Tab PO SCH (08:14)
[2019-03-02] MEDS: Metoprolol Tartrate 25 MG Tab PO SCH ×2 (08:14→20:31)
[2019-03-02] MEDS: Benazepril 10 MG Tab PO SCH (08:15)
[2019-03-02] MEDS: Enoxaparin 40 MG/0.4 ML Syringe SUBCUT SCH (08:16)
[2019-03-02] MEDS: Magnesium Oxide 400 MG Tab PO SCH (08:16)
[2019-03-02] MEDS: cefTRIAXone 1 GM in Sodium Chloride 0.9% 100 ML IV SCH (08:16)
[2019-03-02] MEDS: Acetaminophen 325 MG Tab PO PRN ×2 (08:16→20:30)
[2019-03-02] MEDS ORDERED: Ciprofloxacin in D5W 400 MG in Premix Bag 1 BAG IV ONE ×2 (08:45)
[2019-03-02] MEDS: Sodium Chloride 0.9% 10 ML Syringe FLUSH SCH ×2 (09:28→20:32)
[2019-03-02] MEDS: Ciprofloxacin in D5W 400 MG in Premix Bag 1 BAG IV SCH ×2 (20:34)
--- NOTE | 2019-03-02 22:55 | PCM.PN ---
- General Info Date of Service: 03/02/19 Admission Dx/Problem (Free Text): Admission Diagnosis/Problem Admission Diagnosis/Problem Cellulitis and abscess of foot Functional Status: Reports: Pain Controlled, Tolerating Diet - Review of Systems General: Reports: No Symptoms HEENT: Reports: No Symptoms Pulmonary: Reports: No Symptoms Cardiovascular: Reports: No Symptoms Gastrointestinal: Reports: No Symptoms Genitourinary: Reports: No Symptoms Musculoskeletal: Reports: Foot Pain (right improved), Other (right #1 toe Charcot joint) Skin: Reports: No Symptoms Neurological: Reports: Numbness (bilateral feet) Psychiatric: Reports: No Symptoms - Patient Data Vitals - Most Recent: Last Vital Signs Temp 98.1 F 03/02/19 19:35 Pulse 73 03/02/19 20:31 Resp 18 03/02/19 19:35 BP 116/61 03/02/19 20:31 Pulse Ox 98 03/02/19 19:35 Weight - Most Recent: 332 lb I&O - Last 24 Hours: Intake & Output 03/02/19 03/02/19 03/02/19 06:59 14:59 22:59 Intake Total 128 051 4049 Balance 567 445 0281 Lab Results Last 24 Hours: Laboratory Results - last 24 hr 03/01/19 03/02/19 03/02/19 Range/Units 22:50 07:06 07:06 WBC 8.1 (4.0-10.2) K/uL RBC 4.58 (4.33-5.41) M/uL Hgb 13.5 (13.1-16.8) g/dL Hct 40.6 (39.0-49.0) % MCV 88.6 (84.0-98.0) fL MCH 29.5 (28.2-33.3) pg MCHC 33.3 (31.7-36.0) g/dL RDW 14.2 H (11.2-14.1) % Plt Count 259 (150-350) K/uL Neut % (Auto) 71.2 (45.0-80.0) % Lymph % (Auto) 16.9 (10.0-50.0) % [place] % (Auto) 8.0 (2.0-14.0) % Eos % (Auto) 3.3 (0.0-5.0) % Baso % (Auto) 0.6 (0.0-2.0) % Neut # (Auto) 5.77 (1.40-7.00) K/uL Lymph # (Auto) 1.37 (0.50-3.50) K/uL [place] # (Auto) 0.65 (0.00-1.00) K/uL Eos # (Auto) 0.27 (0.00-0.50) K/uL Baso # (Auto) 0.05 (0.00-0.20) K/uL Sodium 140 (136-145) mmol/L Potassium 4.0 (3.5-5.1) mmol/L Chloride 103 (98-107) mmol/L Carbon Dioxide 26.9 (21.0-32.0) mmol/L BUN 17 (7-18) mg/dL Creatinine 0.79 (0.51-1.17) mg/dL Est Cr Clr Drug Dosing 110.51 mL/min Estimated GFR (MDRD) > 60 mL/min Glucose 145 H (74-106) mg/dL POC Glucose 159 H (65-110) mg/dl Calcium 8.2 L (8.5-10.1) mg/dL Total Bilirubin 0.3 (0.2-1.0) mg/dL AST 24 (15-37) U/L ALT 34 (12-78) U/L Alkaline Phosphatase 119 H (46-116) IU/L C-Reactive Protein 1.8 H (<=0.9) mg/dL Total Protein 6.3 L (6.4-8.2) g/dL Albumin 2.9 L (3.4-5.0) g/dL Vancomycin Trough (10-20) ug/mL 03/02/19 03/02/19 03/02/19 Range/Units 07:06 11:31 15:24 WBC (4.0-10.2) K/uL RBC (4.33-5.41) M/uL Hgb (13.1-16.8) g/dL Hct (39.0-49.0) % MCV (84.0-98.0) fL MCH (28.2-33.3) pg MCHC (31.7-36.0) g/dL RDW (11.2-14.1) % Plt Count (150-350) K/uL Neut % (Auto) (45.0-80.0) % Lymph % (Auto) (10.0-50.0) % [place] % (Auto) (2.0-14.0) % Eos % (Auto) (0.0-5.0) % Baso % (Auto) (0.0-2.0) % Neut # (Auto) (1.40-7.00) K/uL Lymph # (Auto) (0.50-3.50) K/uL [place] # (Auto) (0.00-1.00) K/uL Eos # (Auto) (0.00-0.50) K/uL Baso # (Auto) (0.00-0.20) K/uL Sodium (136-145) mmol/L Potassium (3.5-5.1) mmol/L Chloride (98-107) mmol/L Carbon Dioxide (21.0-32.0) mmol/L BUN (7-18) mg/dL Creatinine (0.51-1.17) mg/dL Est Cr Clr Drug Dosing mL/min Estimated GFR (MDRD) mL/min Glucose (74-106) mg/dL POC Glucose 146 H 122 H (65-110) mg/dl Calcium (8.5-10.1) mg/dL Total Bilirubin (0.2-1.0) mg/dL AST (15-37) U/L ALT (12-78) U/L Alkaline Phosphatase (46-116) IU/L C-Reactive Protein (<=0.9) mg/dL Total Protein (6.4-8.2) g/dL Albumin (3.4-5.0) g/dL Vancomycin Trough 14.7 (10-20) ug/mL 03/02/19 Range/Units 17:08 WBC (4.0-10.2) K/uL RBC (4.33-5.41) M/uL Hgb (13.1-16.8) g/dL Hct (39.0-49.0) % MCV (84.0-98.0) fL MCH (28.2-33.3) pg MCHC (31.7-36.0) g/dL RDW (11.2-14.1) % Plt Count (150-350) K/uL Neut % (Auto) (45.0-80.0) % Lymph % (Auto) (10.0-50.0) % [place] % (Auto) (2.0-14.0) % Eos % (Auto) (0.0-5.0) % Baso % (Auto) (0.0-2.0) % Neut # (Auto) (1.40-7.00) K/uL Lymph # (Auto) (0.50-3.50) K/uL [place] # (Auto) (0.00-1.00) K/uL Eos # (Auto) (0.00-0.50) K/uL Baso # (Auto) (0.00-0.20) K/uL Sodium (136-145) mmol/L Potassium (3.5-5.1) mmol/L Chloride (98-107) mmol/L Carbon Dioxide (21.0-32.0) mmol/L BUN (7-18) mg/dL Creatinine (0.51-1.17) mg/dL Est Cr Clr Drug Dosing mL/min Estimated GFR (MDRD) mL/min Glucose (74-106) mg/dL POC Glucose 110 (65-110) mg/dl Calcium (8.5-10.1) mg/dL Total Bilirubin (0.2-1.0) mg/dL AST (15-37) U/L ALT (12-78) U/L Alkaline Phosphatase (46-116) IU/L C-Reactive Protein (<=0.9) mg/dL Total Protein (6.4-8.2) g/dL Albumin (3.4-5.0) g/dL Vancomycin Trough (10-20) ug/mL Cuong Results Last 24 Hours: Microbiology 02/27/19 16:20 Aerobic Blood Culture - Preliminary Blood - Venous - Lab Draw NO GROWTH AFTER 3 DAYS Anaerobic Blood Culture - Preliminary NO GROWTH AFTER 3 DAYS 02/27/19 15:45 Aerobic Blood Culture - Preliminary Blood - Venous NO GROWTH AFTER 3 DAYS Anaerobic Blood Culture - Preliminary NO GROWTH AFTER 3 DAYS 02/27/19 15:00 Gram Stain - Final Foot, Right Wound Culture - Final Escherichia Coli. Diphtheroids Med Orders - Current: Current Medications Acetaminophen (Tylenol) 650 mg PO Q4H PRN PRN Reason: pain, fever >100.5 Last Admin: 03/02/19 20:30 Dose: 650 mg Benazepril HCl (Lotensin) 20 mg PO DAILY [facility] Last Admin: 03/02/19 08:15 Dose: 20 mg Enoxaparin Sodium (Lovenox) 40 mg SUBCUT DAILY [facility] Last Admin: 03/02/19 08:16 Dose: 40 mg Vancomycin HCl 2 gm/ Sodium (Chloride) 500 mls @ 220 mls/hr IV Q12H [facility] Last Admin: 03/02/19 15:59 Dose: 220 mls/hr Metronidazole 500 mg/ Premix 100 mls @ 100 mls/hr IV Q8H [facility] Last Admin: 03/02/19 19:22 Dose: 100 mls/hr Ciprofloxacin/Dextrose 400 mg/ (Premix) 200 mls @ 200 mls/hr IV Q12HR [facility] Last Admin: 03/02/19 20:34 Dose: 200 mls/hr Insulin Glargine (Lantus) 34 unit SUBCUT DAILY [facility] Last Admin: 03/02/19 08:13 Dose: 34 units Insulin Glargine (Lantus) 25 unit SUBCUT BEDTIME [facility] Last Admin: 03/02/19 20:40 Dose: 25 units Insulin Human Lispro (Humalog) 12 unit SUBCUT TID@0800,1200,1800 [facility] Last Admin: 03/02/19 17:14 Dose: 12 units Magnesium Oxide (Magnesium Oxide) 400 mg PO DAILY [facility] Last Admin: 03/02/19 08:16 Dose: 400 mg Metformin HCl (Glucophage) 1,000 mg PO BID [facility] Last Admin: 03/02/19 17:13 Dose: 1,000 mg Metoprolol Tartrate (Lopressor) 25 mg PO Q12HR [facility] Last Admin: 03/02/19 20:31 Dose: 25 mg #Own Med# Dapagliflozin Propanediol [Farxiga ] 10 Mg) 10 mg PO DAILY [facility] Last Admin: 03/02/19 08:09 Dose: 10 mg Sodium Chloride (Saline Flush) 10 ml FLUSH ASDIRECTED PRN PRN Reason: Keep Vein Open Last Admin: 03/02/19 16:01 Dose: 10 ml Sodium Chloride (Saline Flush) 10 ml FLUSH Q12HR [facility] Last Admin: 03/02/19 20:32 Dose: 10 ml Vancomycin HCl (Pharmacy To Dose - Vancomycin) 1 dose .XX ASDIRECTED [facility] Discontinued Medications Atorvastatin Calcium (Lipitor) 40 mg PO DAILY [facility] Last Admin: 03/02/19 08:14 Dose: 40 mg Ceftazidime (Fortaz) 1 gm IVPUSH Q12HR [facility] Last Admin: 02/28/19 08:44 Dose: 1 gm Ceftriaxone Sodium (Rocephin) 1 gm IVPUSH Q12HR [facility] Enoxaparin Sodium (Lovenox) 150 mg SUBCUT Q12H [facility] Last Admin: 02/27/19 17:06 Dose: 150 mg Enoxaparin Sodium (Lovenox) 150 mg SUBCUT Q12H [facility] Last Admin: 02/28/19 08:25 Dose: 150 mg Metronidazole 500 mg/ Premix 100 mls @ 100 mls/hr IV ONETIME ONE Stop: 02/28/19 01:44 Last Admin: 02/28/19 00:56 Dose: 100 mls/hr Ceftriaxone Sodium 1 gm/ (Sodium Chloride) 100 mls @ 200 mls/hr IV Q12H [facility] Last Admin: 03/02/19 08:16 Dose: Not Given Ciprofloxacin/Dextrose 400 mg/ (Premix) 200 mls @ 200 mls/hr IV ONETIME ONE Stop: 03/02/19 09:44 Last Infusion: 03/02/19 10:45 Dose: Infused Insulin Glargine (Lantus) 50 unit SUBCUT BEDTIME [facility] Last Admin: 02/28/19 20:58 Dose: 50 unit Insulin Glargine (Lantus) 25 unit SUBCUT BEDTIME [facility] Last Admin: 03/01/19 20:52 Dose: Not Given Insulin Human Lispro (Humalog) 25 unit SUBCUT DAILY@1730 [facility] Last Admin: 02/28/19 17:31 Dose: 25 units Insulin Human Lispro (Humalog) 28 unit SUBCUT ACBREAKFAST [facility] Last Admin: 02/28/19 08:21 Dose: 28 units Insulin Human Lispro (Humalog) 28 unit SUBCUT DAILY@1130 [facility] Last Admin: 02/28/19 11:19 Dose: 28 units Insulin Human Lispro (Humalog) 0 unit SUBCUT TID@0800,1200,1800 [facility] Last Admin: 03/01/19 20:24 Dose: Not Given Insulin Human Lispro (Humalog) 12 unit SUBCUT ONETIME ONE Stop: 03/01/19 18:31 Last Admin: 03/01/19 18:29 Dose: 12 units Metoprolol Tartrate (Lopressor) 25 mg PO BID PASCUAL Last Admin: 02/28/19 08:29 Dose: 25 mg - Exam Quality Assessment: DVT Prophylaxis General: Alert, Cooperative, No Acute Distress HEENT: Mucous Membr. Moist/[place] Neck: Trachea Midline, No JVD Lungs: Clear to Auscultation, Normal Respiratory Effort Cardiovascular: Regular Rate, Regular Rhythm GI/Abdominal Exam: Soft, Non-Tender, No Distention (Male) Exam: Deferred Back Exam: Normal Inspection Extremities: Pedal Edema (right improving), Redness (improving) Skin: Other (right foot) Wound/Incisions: Drainage (is decreasing), Erythema Improving, Other ( neuropathic ulcer right plantar surface #1MTP joint, and ulcer right dorsum foot subcutaneous tissue extruding) Neurological: No New Focal Deficit Psy/Mental Status: Alert, Normal Affect, Normal Mood - Problem List & Annotations (1) Diabetes mellitus due to underlying condition with foot ulcer SNOMED Code(s): 1718771 Code(s): E08.621 - DIABETES MELLITUS DUE TO UNDERLYING CONDITION W FOOT ULCER ; L97.509 - NON-PRESSURE CHRONIC ULCER OTH PRT UNSP FOOT W UNSP SEVERITY Status: Acute Priority: High Current Visit: Yes Qualifiers: Diabetes mellitus senior care insulin use: with senior care use Qualified Code( s): E08.621 - Diabetes mellitus due to underlying condition with foot ulcer; L97.509 - Non-pressure chronic ulcer of other part of unspecified foot with unspecified severity; Z79.4 - alf (current) use of insulin (2) Cellulitis and abscess of foot SNOMED Code(s): 272650487, 688503156 Code(s): L03.119 - CELLULITIS OF UNSPECIFIED PART OF LIMB; L02.619 - CUTANEOUS ABSCESS OF UNSPECIFIED FOOT Status: Acute Priority: High Current Visit: Yes Onset Date: ~09/06/18 Annotation/Comment:: First clinic visit for the cellulitis and diabetic was 09-06-18. He has had improvement but not resolution. He has been following with [facility] and Dr. Edis Tang, Drawing [employer] on alternating weeks for the past couple months. Cellulitis symptoms acutely flared 2-3 days ago per pt. (3) Obesity, Class III, BMI 40-49.9 (morbid obesity) SNOMED Code(s): 192381975, 481683916, 17938911231375 Code(s): E66.01 - MORBID (SEVERE) OBESITY DUE TO EXCESS CALORIES Status: Acute Current Visit: Yes Annotation/Comment:: complicating factor in healing of diabetic foot ulcers (4) HTN (hypertension) SNOMED Code(s): 99155610 Code(s): I10 - ESSENTIAL (PRIMARY) HYPERTENSION Status: Chronic Priority : Medium Current Visit: Yes Qualifiers: Hypertension type: essential hypertension Qualified Code(s): I10 - Essential (primary) hypertension (5) Hyperlipemia SNOMED Code(s): 48809271 Code(s): E78.5 - HYPERLIPIDEMIA, UNSPECIFIED Status: Chronic Priority: Medium Current Visit: Yes Qualifiers: Hyperlipidemia type: unspecified Qualified Code(s): E78.5 - Hyperlipidemia , unspecified (6) Sleep apnea SNOMED Code(s): 96576143 Code(s): G47.30 - SLEEP APNEA, UNSPECIFIED Status: Chronic Priority: Medium Current Visit: Yes Qualifiers: Sleep apnea type: obstructive Qualified Code(s): G47.33 - Obstructive sleep apnea (adult) (pediatric) (7) Charcot foot due to diabetes mellitus SNOMED Code(s): 040450096, 226958045, 331040838 Code(s): E11.610 - TYPE 2 DIABETES MELLITUS W DIABETIC NEUROPATHIC ARTHROPATHY Status: Acute Priority: High Current Visit: Yes - Problem List Review Problem List Initiated/Reviewed/Updated: Yes - My Orders Last 24 Hours: My Active Orders 03/02/19 08:00 Insulin Lispro [HumaLOG] 12 unit SUBCUT TID@0800,1200,1800 03/02/19 08:41 Communication Order [RC] Mo@08 03/02/19 20:00 Ciprofloxacin in D5W [Cipro in D5W 400 MG/200 ML] 400 mg Premix Bag 1 bag IV Q12HR 03/03/19 08:00 Foot w wo Cont Rt [MR] Routine - Plan Plan:: 02-27-19 Gabriella Smallwood PA-C 58 yr-old male patient admitted to [facility] for treatment of acute R foot cellulitis with diabetic ulcer, OP therapy failure. I did talk to Dr. Edis Tang, Drawing [employer] Operator earlier this week who is concerned that we have not been able to get this healed although it has made improvement. However today patient tells me that three nights ago he had lots of pain in this area, and two days ago the redness and swelling markedly worsened (this was after his last visit with Dr. Tang). He is started on IV Fortaz and Vanco. Lactic acid 2.7 today, will repeat with AM labs. Wound culture taken from drainage dorsal aspect of the 1st MTP joint/ toe. Dr. Tang had obtained a sample of the drainage from the ulcer earlier this week but I have not received a report on that yet. Bedrest is ordered to offload pressure on the foot, so subcut Lovenox is ordered prophylactically. His will bring in his CPAP from home, and we will continue home settings. 02/28/19 Ingrid Stack MD Swelling and redness have decreased in the right foot. Initial C&S staph. Continue IV antibiotics. 03/01/19 Ingrid Stack MD Swelling and redness of right foot continues to decrease. Drainage is decreasing. Continue IV antibiotics. 03/02/19 Ingrid Stack MD C&S today reports E-coli resistant to rocephin. Antibiotics changed. Leg/foot improving. MRI tomorrow. This diabetic foot ulcer started on the plantar surface and exploded through the dorsum of the right foot. Osteomyelitis is a distinct possibility. MRI tomorrow. Continue IV antibiotics.
[2019-03-03] MEDS ORDERED: Gadobenate Dimeglumine 529 MG/ML 20 ML SDV ONE (01:00)
[2019-03-03] MEDS: Sodium Chloride 0.9% 10 ML Syringe FLUSH PRN ×3 (02:52→20:33)
[2019-03-03] MEDS: metroNIDAZOLE/Normal Saline 500 MG in Premix Bag 1 BAG IV SCH ×3 (02:52→17:37)
[2019-03-03] MEDS: Vancomycin 2 GM in Sodium Chloride 0.9% 500 ML IV SCH ×2 (03:50→15:13)
[2019-03-03] MEDS: Enoxaparin 40 MG/0.4 ML Syringe SUBCUT SCH (07:50)
[2019-03-03] MEDS: Benazepril 10 MG Tab PO SCH (07:51)
[2019-03-03] MEDS: metFORMIN 500 MG Tab PO SCH ×2 (07:51→17:37)
[2019-03-03] MEDS: Magnesium Oxide 400 MG Tab PO SCH (07:52)
[2019-03-03] MEDS: Metoprolol Tartrate 25 MG Tab PO SCH ×2 (07:52→19:19)
[2019-03-03] MEDS: DAPAGLIFLOZIN PROPANEDIOL 10 MG PO SCH (07:52)
[2019-03-03] MEDS: Insulin Glarg,Human.Rec.Analog 100 UNIT/ML ML SUBCUT SCH ×2 (07:54→19:21)
[2019-03-03] MEDS: Insulin Lispro 100 Units/ML 3 ML Vial SUBCUT SCH ×3 (07:56→17:37)
[2019-03-03] MEDS: Sodium Chloride 0.9% 10 ML Syringe FLUSH SCH ×2 (08:00→19:24)
[2019-03-03] MEDS: Ciprofloxacin in D5W 400 MG in Premix Bag 1 BAG IV SCH ×4 (08:00→19:22)
[2019-03-03] MEDS ORDERED: Gadobenate Dimeglumine 529 MG/ML 20 ML SDV IVPUSH ONE (08:04)
[2019-03-03 08:27] LABS: CHLORIDE,CL 103 mmol/L (98-107); SODIUM,NA 141 mmol/L (136-145)
[2019-03-03] MEDS: Acetaminophen 325 MG Tab PO PRN (19:41)
--- NOTE | 2019-03-04 00:14 | PCM.PN ---
- General Info Date of Service: 03/03/19 Admission Dx/Problem (Free Text): Admission Diagnosis/Problem Admission Diagnosis/Problem Cellulitis and abscess of foot Functional Status: Reports: Pain Controlled, Tolerating Diet - Review of Systems General: Reports: No Symptoms HEENT: Reports: No Symptoms Pulmonary: Reports: No Symptoms Cardiovascular: Reports: No Symptoms Gastrointestinal: Reports: No Symptoms Genitourinary: Reports: No Symptoms Musculoskeletal: Reports: No Symptoms Skin: Reports: No Symptoms Neurological: Reports: Numbness (bilateral feet), Other (right Charcot joint) Psychiatric: Reports: No Symptoms - Patient Data Vitals - Most Recent: Last Vital Signs Temp 98.5 F 03/03/19 19:59 Pulse 70 03/03/19 19:59 Resp 16 03/03/19 19:59 BP 140/50 L 03/03/19 19:59 Pulse Ox 96 03/03/19 19:59 Weight - Most Recent: 332 lb 0.011 oz I&O - Last 24 Hours: Intake & Output 03/03/19 03/03/19 03/04/19 14:59 22:59 06:59 Intake Total 960 1910 185 Balance 960 1910 185 Lab Results Last 24 Hours: Laboratory Results - last 24 hr 03/03/19 03/03/19 03/03/19 Range/Units 05:11 07:10 07:28 WBC 10.4 H (4.0-10.2) K/uL RBC 4.84 (4.33-5.41) M/uL Hgb 14.4 (13.1-16.8) g/dL Hct 43.0 (39.0-49.0) % MCV 88.8 (84.0-98.0) fL MCH 29.8 (28.2-33.3) pg MCHC 33.5 (31.7-36.0) g/dL RDW 14.4 H (11.2-14.1) % Plt Count 294 (150-350) K/uL Neut % (Auto) 75.6 (45.0-80.0) % Lymph % (Auto) 14.0 (10.0-50.0) % Woods % (Auto) 7.0 (2.0-14.0) % Eos % (Auto) 2.6 (0.0-5.0) % Baso % (Auto) 0.8 (0.0-2.0) % Neut # (Auto) 7.85 H (1.40-7.00) K/uL Lymph # (Auto) 1.45 (0.50-3.50) K/uL Woods # (Auto) 0.73 (0.00-1.00) K/uL Eos # (Auto) 0.27 (0.00-0.50) K/uL Baso # (Auto) 0.08 (0.00-0.20) K/uL Sodium 141 (136-145) mmol/L Potassium 4.2 (3.5-5.1) mmol/L Chloride 103 (98-107) mmol/L Carbon Dioxide 28.5 (21.0-32.0) mmol/L BUN 18 (7-18) mg/dL Creatinine 0.82 (0.51-1.17) mg/dL Est Cr Clr Drug Dosing 106.61 mL/min Estimated GFR (MDRD) > 60 mL/min Glucose 138 H (74-106) mg/dL POC Glucose 131 H (65-110) mg/dl Calcium 8.7 (8.5-10.1) mg/dL Total Bilirubin 0.4 (0.2-1.0) mg/dL AST 93 H (15-37) U/L ALT 120 H (12-78) U/L Alkaline Phosphatase 129 H (46-116) IU/L C-Reactive Protein 1.8 H (<=0.9) mg/dL Total Protein 7.0 (6.4-8.2) g/dL Albumin 3.2 L (3.4-5.0) g/dL 03/03/19 03/03/19 Range/Units 11:35 17:08 WBC (4.0-10.2) K/uL RBC (4.33-5.41) M/uL Hgb (13.1-16.8) g/dL Hct (39.0-49.0) % MCV (84.0-98.0) fL MCH (28.2-33.3) pg MCHC (31.7-36.0) g/dL RDW (11.2-14.1) % Plt Count (150-350) K/uL Neut % (Auto) (45.0-80.0) % Lymph % (Auto) (10.0-50.0) % Woods % (Auto) (2.0-14.0) % Eos % (Auto) (0.0-5.0) % Baso % (Auto) (0.0-2.0) % Neut # (Auto) (1.40-7.00) K/uL Lymph # (Auto) (0.50-3.50) K/uL Woods # (Auto) (0.00-1.00) K/uL Eos # (Auto) (0.00-0.50) K/uL Baso # (Auto) (0.00-0.20) K/uL Sodium (136-145) mmol/L Potassium (3.5-5.1) mmol/L Chloride (98-107) mmol/L Carbon Dioxide (21.0-32.0) mmol/L BUN (7-18) mg/dL Creatinine (0.51-1.17) mg/dL Est Cr Clr Drug Dosing mL/min Estimated GFR (MDRD) mL/min Glucose (74-106) mg/dL POC Glucose 137 H 95 (65-110) mg/dl Calcium (8.5-10.1) mg/dL Total Bilirubin (0.2-1.0) mg/dL AST (15-37) U/L ALT (12-78) U/L Alkaline Phosphatase (46-116) IU/L C-Reactive Protein (<=0.9) mg/dL Total Protein (6.4-8.2) g/dL Albumin (3.4-5.0) g/dL Cuong Results Last 24 Hours: Microbiology 02/27/19 16:20 Aerobic Blood Culture - Preliminary Blood - Venous - Lab Draw NO GROWTH AFTER 4 DAYS Anaerobic Blood Culture - Preliminary NO GROWTH AFTER 4 DAYS 02/27/19 15:45 Aerobic Blood Culture - Preliminary Blood - Venous NO GROWTH AFTER 4 DAYS Anaerobic Blood Culture - Preliminary NO GROWTH AFTER 4 DAYS Med Orders - Current: Current Medications Acetaminophen (Tylenol) 650 mg PO Q4H PRN PRN Reason: pain, fever >100.5 Last Admin: 03/03/19 19:41 Dose: 650 mg Benazepril HCl (Lotensin) 20 mg PO DAILY [facility] Last Admin: 03/03/19 07:51 Dose: 20 mg Enoxaparin Sodium (Lovenox) 40 mg SUBCUT DAILY [facility] Last Admin: 03/03/19 07:50 Dose: 40 mg Vancomycin HCl 2 gm/ Sodium (Chloride) 500 mls @ 220 mls/hr IV Q12H [facility] Last Admin: 03/03/19 15:13 Dose: 220 mls/hr Metronidazole 500 mg/ Premix 100 mls @ 100 mls/hr IV Q8H [facility] Last Admin: 03/03/19 17:37 Dose: 100 mls/hr Ciprofloxacin/Dextrose 400 mg/ (Premix) 200 mls @ 200 mls/hr IV Q12HR [facility] Last Admin: 03/03/19 19:22 Dose: 200 mls/hr Insulin Glargine (Lantus) 34 unit SUBCUT DAILY [facility] Last Admin: 03/03/19 07:54 Dose: 34 units Insulin Glargine (Lantus) 25 unit SUBCUT BEDTIME [facility] Last Admin: 03/03/19 19:21 Dose: 25 units Insulin Human Lispro (Humalog) 12 unit SUBCUT TID@0800,1200,1800 [facility] Last Admin: 03/03/19 17:37 Dose: 12 units Magnesium Oxide (Magnesium Oxide) 400 mg PO DAILY [facility] Last Admin: 03/03/19 07:52 Dose: 400 mg Metformin HCl (Glucophage) 1,000 mg PO BID [facility] Last Admin: 03/03/19 17:37 Dose: 1,000 mg Metoprolol Tartrate (Lopressor) 25 mg PO Q12HR [facility] Last Admin: 03/03/19 19:19 Dose: 25 mg #Own Med# Dapagliflozin Propanediol [Farxiga ] 10 Mg) 10 mg PO DAILY [facility] Last Admin: 03/03/19 07:52 Dose: 10 mg Sodium Chloride (Saline Flush) 10 ml FLUSH ASDIRECTED PRN PRN Reason: Keep Vein Open Last Admin: 03/03/19 20:33 Dose: 10 ml Sodium Chloride (Saline Flush) 10 ml FLUSH Q12HR [facility] Last Admin: 03/03/19 19:24 Dose: 10 ml Vancomycin HCl (Pharmacy To Dose - Vancomycin) 1 dose .XX ASDIRECTED [facility] Discontinued Medications Atorvastatin Calcium (Lipitor) 40 mg PO DAILY [facility] Last Admin: 03/02/19 08:14 Dose: 40 mg Ceftazidime (Fortaz) 1 gm IVPUSH Q12HR [facility] Last Admin: 02/28/19 08:44 Dose: 1 gm Ceftriaxone Sodium (Rocephin) 1 gm IVPUSH Q12HR [facility] Enoxaparin Sodium (Lovenox) 150 mg SUBCUT Q12H [facility] Last Admin: 02/27/19 17:06 Dose: 150 mg Enoxaparin Sodium (Lovenox) 150 mg SUBCUT Q12H [facility] Last Admin: 02/28/19 08:25 Dose: 150 mg Gadobenate Dimeglumine (Multihance) 20 ml IVPUSH ONETIME ONE Stop: 03/03/19 08:05 Last Admin: 03/03/19 16:36 Dose: Not Given Metronidazole 500 mg/ Premix 100 mls @ 100 mls/hr IV ONETIME ONE Stop: 02/28/19 01:44 Last Admin: 02/28/19 00:56 Dose: 100 mls/hr Ceftriaxone Sodium 1 gm/ (Sodium Chloride) 100 mls @ 200 mls/hr IV Q12H [facility] Last Admin: 03/02/19 08:16 Dose: Not Given Ciprofloxacin/Dextrose 400 mg/ (Premix) 200 mls @ 200 mls/hr IV ONETIME ONE Stop: 03/02/19 09:44 Last Infusion: 03/02/19 10:45 Dose: Infused Insulin Glargine (Lantus) 50 unit SUBCUT BEDTIME [facility] Last Admin: 02/28/19 20:58 Dose: 50 unit Insulin Glargine (Lantus) 25 unit SUBCUT BEDTIME [facility] Last Admin: 03/01/19 20:52 Dose: Not Given Insulin Human Lispro (Humalog) 25 unit SUBCUT DAILY@1730 [facility] Last Admin: 02/28/19 17:31 Dose: 25 units Insulin Human Lispro (Humalog) 28 unit SUBCUT ACBREAKFAST [facility] Last Admin: 02/28/19 08:21 Dose: 28 units Insulin Human Lispro (Humalog) 28 unit SUBCUT DAILY@1130 [facility] Last Admin: 02/28/19 11:19 Dose: 28 units Insulin Human Lispro (Humalog) 0 unit SUBCUT TID@0800,1200,1800 [facility] Last Admin: 03/01/19 20:24 Dose: Not Given Insulin Human Lispro (Humalog) 12 unit SUBCUT ONETIME ONE Stop: 03/01/19 18:31 Last Admin: 03/01/19 18:29 Dose: 12 units Metoprolol Tartrate (Lopressor) 25 mg PO BID [facility] Last Admin: 02/28/19 08:29 Dose: 25 mg - Exam Quality Assessment: DVT Prophylaxis General: Alert, Cooperative, No Acute Distress HEENT: Mucous Membr. Moist/Likely Neck: Trachea Midline, No JVD Lungs: Clear to Auscultation, Normal Respiratory Effort Cardiovascular: Regular Rate, Regular Rhythm GI/Abdominal Exam: Soft, Non-Tender, No Distention (Male) Exam: Deferred Back Exam: Normal Inspection Extremities: Non-Tender, Redness (right foot improving) Wound/Incisions: Drainage (decreasing), Erythema Improving Neurological: No New Focal Deficit, Other (charcot joint right #1 mtp joint) Psy/Mental Status: Alert, Normal Affect, Normal Mood - Problem List & Annotations (1) Diabetes mellitus due to underlying condition with foot ulcer SNOMED Code(s): 4534687 Code(s): E08.621 - DIABETES MELLITUS DUE TO UNDERLYING CONDITION W FOOT ULCER ; L97.509 - NON-PRESSURE CHRONIC ULCER OTH PRT UNSP FOOT W UNSP SEVERITY Status: Acute Priority: High Current Visit: Yes Qualifiers: Diabetes mellitus edi developer insulin use: with edi developer use Qualified Code( s): E08.621 - Diabetes mellitus due to underlying condition with foot ulcer; L97.509 - Non-pressure chronic ulcer of other part of unspecified foot with unspecified severity; Z79.4 - correction (current) use of insulin (2) Cellulitis and abscess of foot SNOMED Code(s): 100864809, 057105133 Code(s): L03.119 - CELLULITIS OF UNSPECIFIED PART OF LIMB; L02.619 - CUTANEOUS ABSCESS OF UNSPECIFIED FOOT Status: Acute Priority: High Current Visit: Yes Onset Date: ~09/06/18 Annotation/Comment:: First clinic visit for the cellulitis and diabetic was 09-06-18. He has had improvement but not resolution. He has been following with [facility] and Dr. Edis Tang, [employer] on alternating weeks for the past couple months. Cellulitis symptoms acutely flared 2-3 days ago per pt. (3) Obesity, Class III, BMI 40-49.9 (morbid obesity) SNOMED Code(s): 020468210, 206750233, 34072790633631 Code(s): E66.01 - MORBID (SEVERE) OBESITY DUE TO EXCESS CALORIES Status: Acute Current Visit: Yes Annotation/Comment:: complicating factor in healing of diabetic foot ulcers (4) HTN (hypertension) SNOMED Code(s): 26880507 Code(s): I10 - ESSENTIAL (PRIMARY) HYPERTENSION Status: Chronic Priority : Medium Current Visit: Yes Qualifiers: Hypertension type: essential hypertension Qualified Code(s): I10 - Essential (primary) hypertension (5) Hyperlipemia SNOMED Code(s): 33275804 Code(s): E78.5 - HYPERLIPIDEMIA, UNSPECIFIED Status: Chronic Priority: Medium Current Visit: Yes Qualifiers: Hyperlipidemia type: unspecified Qualified Code(s): E78.5 - Hyperlipidemia , unspecified (6) Sleep apnea SNOMED Code(s): 83232355 Code(s): G47.30 - SLEEP APNEA, UNSPECIFIED Status: Chronic Priority: Medium Current Visit: Yes Qualifiers: Sleep apnea type: obstructive Qualified Code(s): G47.33 - Obstructive sleep apnea (adult) (pediatric) (7) Charcot foot due to diabetes mellitus SNOMED Code(s): 846105953, 777541821, 164166134 Code(s): E11.610 - TYPE 2 DIABETES MELLITUS W DIABETIC NEUROPATHIC ARTHROPATHY Status: Acute Priority: High Current Visit: Yes - Problem List Review Problem List Initiated/Reviewed/Updated: Yes - My Orders Last 24 Hours: My Active Orders 03/03/19 12:23 Foot w wo Cont Rt [MR] Routine - Plan Plan:: 02-27-19 Gabriella Smallwood PA-C 58 yr-old male patient admitted to status for treatment of acute R foot cellulitis with diabetic ulcer, OP therapy failure. I did talk to Dr. Edis Tang, [employer] Equipment Operator earlier this week who is concerned that we have not been able to get this healed although it has made improvement. However today patient tells me that three nights ago he had lots of pain in this area, and two days ago the redness and swelling markedly worsened (this was after his last visit with Dr. Tang). He is started on IV Fortaz and Vanco. Lactic acid 2.7 today, will repeat with AM labs. Wound culture taken from drainage dorsal aspect of the 1st MTP joint/ toe. Dr. Tang had obtained a sample of the drainage from the ulcer earlier this week but I have not received a report on that yet. Bedrest is ordered to offload pressure on the foot, so subcut Lovenox is ordered prophylactically. His will bring in his CPAP from home, and we will continue home settings. 02/28/19 Ingrid Stack MD Swelling and redness have decreased in the right foot. Initial C&S staph. Continue IV antibiotics. 03/01/19 Ingrid Stack MD Swelling and redness of right foot continues to decrease. Drainage is decreasing. Continue IV antibiotics. 03/02/19 Ingrid Stack MD C&S today reports E-coli resistant to rocephin. Antibiotics changed. Leg/foot improving. MRI tomorrow. This diabetic foot ulcer started on the plantar surface and exploded through the dorsum of the right foot. Osteomyelitis is a distinct possibility. MRI tomorrow. Continue IV antibiotics. 03/03/19 late entry Ingrid Stack MD Foot continues slow improvement. Still with drainage. MRI done but results pending. C&S from [facility] MRSA sensitive to vancomycin. He requires inpatient status to continue IV antibiotics due to complex serious foot ulcer with Charcot joint. He is at serious risk for possibility of amputation if this serious deep foot infection is not treated successfully. We need MRI results before deciding how long this serious infection requires IV antibiotics. He refuses transfer to [place].
[2019-03-04] MEDS: metroNIDAZOLE/Normal Saline 500 MG in Premix Bag 1 BAG IV SCH ×3 (02:54→19:55)
[2019-03-04] MEDS: Sodium Chloride 0.9% 10 ML Syringe FLUSH PRN ×6 (02:56→20:52)
[2019-03-04] MEDS: Vancomycin 2 GM in Sodium Chloride 0.9% 500 ML IV SCH ×2 (03:01→16:10)
[2019-03-04] MEDS: Ciprofloxacin in D5W 400 MG in Premix Bag 1 BAG IV SCH ×4 (07:25→18:51)
[2019-03-04] MEDS: DAPAGLIFLOZIN PROPANEDIOL 10 MG PO SCH (07:27)
[2019-03-04] MEDS: Enoxaparin 40 MG/0.4 ML Syringe SUBCUT SCH (07:31)
[2019-03-04] MEDS: Metoprolol Tartrate 25 MG Tab PO SCH ×2 (07:32→19:57)
[2019-03-04] MEDS: metFORMIN 500 MG Tab PO SCH ×2 (07:32→19:06)
[2019-03-04] MEDS: Magnesium Oxide 400 MG Tab PO SCH (07:34)
[2019-03-04] MEDS: Benazepril 10 MG Tab PO SCH (07:35)
[2019-03-04] MEDS: Sodium Chloride 0.9% 10 ML Syringe FLUSH SCH ×2 (07:35→19:57)
[2019-03-04] MEDS: Insulin Lispro 100 Units/ML 3 ML Vial SUBCUT SCH ×3 (07:36→17:19)
[2019-03-04] MEDS: Insulin Glarg,Human.Rec.Analog 100 UNIT/ML ML SUBCUT SCH ×2 (07:38→19:56)
[2019-03-04 15:55] LABS: CHLORIDE,CL 103 mmol/L (98-107); SODIUM,NA 141 mmol/L (136-145)
[2019-03-04] MEDS: Acetaminophen 325 MG Tab PO PRN (20:50)
--- NOTE | 2019-03-04 23:26 | PCM.PN ---
- General Info Date of Service: 03/04/19 Admission Dx/Problem (Free Text): Admission Diagnosis/Problem Admission Diagnosis/Problem Cellulitis and abscess of foot Functional Status: Reports: Pain Controlled, Tolerating Diet - Review of Systems General: Reports: No Symptoms HEENT: Reports: No Symptoms Pulmonary: Reports: No Symptoms Cardiovascular: Reports: No Symptoms Gastrointestinal: Reports: No Symptoms Genitourinary: Reports: No Symptoms Musculoskeletal: Reports: No Symptoms Skin: Reports: No Symptoms Neurological: Reports: Numbness (bilateral feet), Other (Charcot joint right foot) Psychiatric: Reports: No Symptoms - Patient Data Vitals - Most Recent: Last Vital Signs Temp 98.2 F 03/04/19 20:00 Pulse 81 03/04/19 20:00 Resp 18 03/04/19 20:00 BP 121/52 L 03/04/19 20:00 Pulse Ox 97 03/04/19 20:00 Weight - Most Recent: 332 lb 0.011 oz I&O - Last 24 Hours: Intake & Output 03/04/19 03/04/19 03/05/19 14:59 22:59 06:59 Intake Total 840 240 Balance 840 240 Lab Results Last 24 Hours: Laboratory Results - last 24 hr 03/04/19 03/04/19 03/04/19 Range/Units 07:04 11:05 15:24 WBC (4.0-10.2) K/uL RBC (4.33-5.41) M/uL Hgb (13.1-16.8) g/dL Hct (39.0-49.0) % MCV (84.0-98.0) fL MCH (28.2-33.3) pg MCHC (31.7-36.0) g/dL RDW (11.2-14.1) % Plt Count (150-350) K/uL Neut % (Auto) (45.0-80.0) % Lymph % (Auto) (10.0-50.0) % Coal % (Auto) (2.0-14.0) % Eos % (Auto) (0.0-5.0) % Baso % (Auto) (0.0-2.0) % Neut # (Auto) (1.40-7.00) K/uL Lymph # (Auto) (0.50-3.50) K/uL Coal # (Auto) (0.00-1.00) K/uL Eos # (Auto) (0.00-0.50) K/uL Baso # (Auto) (0.00-0.20) K/uL Sodium 141 (136-145) mmol/L Potassium 4.1 (3.5-5.1) mmol/L Chloride 103 (98-107) mmol/L Carbon Dioxide 28.5 (21.0-32.0) mmol/L BUN 17 (7-18) mg/dL Creatinine 0.98 (0.51-1.17) mg/dL Est Cr Clr Drug Dosing 89.21 mL/min Estimated GFR (MDRD) > 60 mL/min Glucose 131 H (74-106) mg/dL POC Glucose 108 103 (65-110) mg/dl Calcium 8.7 (8.5-10.1) mg/dL Total Bilirubin 0.3 (0.2-1.0) mg/dL AST 109 H (15-37) U/L ALT 165 H (12-78) U/L Alkaline Phosphatase 127 H (46-116) IU/L C-Reactive Protein 1.3 H (<=0.9) mg/dL Total Protein 6.6 (6.4-8.2) g/dL Albumin 3.1 L (3.4-5.0) g/dL Vancomycin Trough 16.7 (10-20) ug/mL 03/04/19 03/04/19 Range/Units 15:24 17:08 WBC 10.4 H (4.0-10.2) K/uL RBC 4.64 (4.33-5.41) M/uL Hgb 13.9 (13.1-16.8) g/dL Hct 41.2 (39.0-49.0) % MCV 88.8 (84.0-98.0) fL MCH 30.0 (28.2-33.3) pg MCHC 33.7 (31.7-36.0) g/dL RDW 14.3 H (11.2-14.1) % Plt Count 266 (150-350) K/uL Neut % (Auto) 77.7 (45.0-80.0) % Lymph % (Auto) 12.1 (10.0-50.0) % Coal % (Auto) 6.9 (2.0-14.0) % Eos % (Auto) 2.8 (0.0-5.0) % Baso % (Auto) 0.5 (0.0-2.0) % Neut # (Auto) 8.05 H (1.40-7.00) K/uL Lymph # (Auto) 1.25 (0.50-3.50) K/uL Coal # (Auto) 0.71 (0.00-1.00) K/uL Eos # (Auto) 0.29 (0.00-0.50) K/uL Baso # (Auto) 0.05 (0.00-0.20) K/uL Sodium (136-145) mmol/L Potassium (3.5-5.1) mmol/L Chloride (98-107) mmol/L Carbon Dioxide (21.0-32.0) mmol/L BUN (7-18) mg/dL Creatinine (0.51-1.17) mg/dL Est Cr Clr Drug Dosing mL/min Estimated GFR (MDRD) mL/min Glucose (74-106) mg/dL POC Glucose 135 H (65-110) mg/dl Calcium (8.5-10.1) mg/dL Total Bilirubin (0.2-1.0) mg/dL AST (15-37) U/L ALT (12-78) U/L Alkaline Phosphatase (46-116) IU/L C-Reactive Protein (<=0.9) mg/dL Total Protein (6.4-8.2) g/dL Albumin (3.4-5.0) g/dL Vancomycin Trough (10-20) ug/mL Cuong Results Last 24 Hours: Microbiology 02/27/19 16:20 Aerobic Blood Culture - Final Blood - Venous - Lab Draw NO GROWTH AFTER 5 DAYS Anaerobic Blood Culture - Final NO GROWTH AFTER 5 DAYS 02/27/19 15:45 Aerobic Blood Culture - Final Blood - Venous NO GROWTH AFTER 5 DAYS Anaerobic Blood Culture - Final NO GROWTH AFTER 5 DAYS Med Orders - Current: Current Medications Acetaminophen (Tylenol) 650 mg PO Q4H PRN PRN Reason: pain, fever >100.5 Last Admin: 03/04/19 20:50 Dose: 650 mg Benazepril HCl (Lotensin) 20 mg PO DAILY [facility] Last Admin: 03/04/19 07:35 Dose: 20 mg Enoxaparin Sodium (Lovenox) 40 mg SUBCUT DAILY [facility] Last Admin: 03/04/19 07:31 Dose: 40 mg Vancomycin HCl 2 gm/ Sodium (Chloride) 500 mls @ 220 mls/hr IV Q12H [facility] Last Admin: 03/04/19 16:10 Dose: 220 mls/hr Metronidazole 500 mg/ Premix 100 mls @ 100 mls/hr IV Q8H [facility] Last Admin: 03/04/19 19:55 Dose: 100 mls/hr Ciprofloxacin/Dextrose 400 mg/ (Premix) 200 mls @ 200 mls/hr IV Q8H [facility] Last Admin: 03/04/19 18:51 Dose: 200 mls/hr Insulin Glargine (Lantus) 25 unit SUBCUT BEDTIME [facility] Last Admin: 03/04/19 19:56 Dose: 25 units Insulin Glargine (Lantus) 25 unit SUBCUT DAILY [facility] Last Admin: 03/04/19 07:38 Dose: 25 units Insulin Human Lispro (Humalog) 12 unit SUBCUT TID@0800,1200,1800 [facility] Last Admin: 03/04/19 17:19 Dose: 12 units Magnesium Oxide (Magnesium Oxide) 400 mg PO DAILY [facility] Last Admin: 03/04/19 07:34 Dose: 400 mg Metformin HCl (Glucophage) 500 mg PO BID [facility] Last Admin: 03/04/19 19:06 Dose: 500 mg Metoprolol Tartrate (Lopressor) 25 mg PO Q12HR [facility] Last Admin: 03/04/19 19:57 Dose: 25 mg #Own Med# Dapagliflozin Propanediol [Farxiga ] 10 Mg) 10 mg PO DAILY [facility] Last Admin: 03/04/19 07:27 Dose: 10 mg Sodium Chloride (Saline Flush) 10 ml FLUSH ASDIRECTED PRN PRN Reason: Keep Vein Open Last Admin: 03/04/19 20:52 Dose: 10 ml Sodium Chloride (Saline Flush) 10 ml FLUSH Q12HR [facility] Last Admin: 03/04/19 19:57 Dose: 10 ml Vancomycin HCl (Pharmacy To Dose - Vancomycin) 1 dose .XX ASDIRECTED [facility] Discontinued Medications Atorvastatin Calcium (Lipitor) 40 mg PO DAILY [facility] Last Admin: 03/02/19 08:14 Dose: 40 mg Ceftazidime (Fortaz) 1 gm IVPUSH Q12HR [facility] Last Admin: 02/28/19 08:44 Dose: 1 gm Ceftriaxone Sodium (Rocephin) 1 gm IVPUSH Q12HR [facility] Enoxaparin Sodium (Lovenox) 150 mg SUBCUT Q12H [facility] Last Admin: 02/27/19 17:06 Dose: 150 mg Enoxaparin Sodium (Lovenox) 150 mg SUBCUT Q12H [facility] Last Admin: 02/28/19 08:25 Dose: 150 mg Gadobenate Dimeglumine (Multihance) 20 ml IVPUSH ONETIME ONE Stop: 03/03/19 08:05 Last Admin: 03/03/19 16:36 Dose: Not Given Gadobenate Dimeglumine (Multihance) 20 ml .ROUTE .STK-MED ONE Stop: 03/03/19 01:01 Metronidazole 500 mg/ Premix 100 mls @ 100 mls/hr IV ONETIME ONE Stop: 02/28/19 01:44 Last Admin: 02/28/19 00:56 Dose: 100 mls/hr Ceftriaxone Sodium 1 gm/ (Sodium Chloride) 100 mls @ 200 mls/hr IV Q12H [facility] Last Admin: 03/02/19 08:16 Dose: Not Given Ciprofloxacin/Dextrose 400 mg/ (Premix) 200 mls @ 200 mls/hr IV Q12HR [facility] Last Infusion: 03/04/19 08:30 Dose: Infused Ciprofloxacin/Dextrose 400 mg/ (Premix) 200 mls @ 200 mls/hr IV ONETIME ONE Stop: 03/02/19 09:44 Last Infusion: 03/02/19 10:45 Dose: Infused Insulin Glargine (Lantus) 34 unit SUBCUT DAILY [facility] Last Admin: 03/03/19 07:54 Dose: 34 units Insulin Glargine (Lantus) 50 unit SUBCUT BEDTIME [facility] Last Admin: 02/28/19 20:58 Dose: 50 unit Insulin Glargine (Lantus) 25 unit SUBCUT BEDTIME [facility] Last Admin: 03/01/19 20:52 Dose: Not Given Insulin Human Lispro (Humalog) 25 unit SUBCUT DAILY@1730 [facility] Last Admin: 02/28/19 17:31 Dose: 25 units Insulin Human Lispro (Humalog) 28 unit SUBCUT ACBREAKFAST [facility] Last Admin: 02/28/19 08:21 Dose: 28 units Insulin Human Lispro (Humalog) 28 unit SUBCUT DAILY@1130 [facility] Last Admin: 02/28/19 11:19 Dose: 28 units Insulin Human Lispro (Humalog) 0 unit SUBCUT TID@0800,1200,1800 [facility] Last Admin: 03/01/19 20:24 Dose: Not Given Insulin Human Lispro (Humalog) 12 unit SUBCUT ONETIME ONE Stop: 03/01/19 18:31 Last Admin: 03/01/19 18:29 Dose: 12 units Metformin HCl (Glucophage) 1,000 mg PO BID [facility] Last Admin: 03/03/19 17:37 Dose: 1,000 mg Metoprolol Tartrate (Lopressor) 25 mg PO BID [facility] Last Admin: 02/28/19 08:29 Dose: 25 mg - Exam Quality Assessment: DVT Prophylaxis General: Alert, Cooperative, No Acute Distress HEENT: Pupils Equal, Pupils Reactive, EOMI, Mucous Membr. Moist/[place] Neck: Trachea Midline, No JVD Lungs: Clear to Auscultation, Normal Respiratory Effort Cardiovascular: Regular Rate, Regular Rhythm GI/Abdominal Exam: Soft, Non-Tender, No Distention (Male) Exam: Deferred Back Exam: Normal Inspection Extremities: No Pedal Edema Skin: Warm, Dry, Intact Wound/Incisions: Drainage (continues to decrease), Erythema Improving, Other ( diabetic foot ulcer right, Charcot joint) Neurological: No New Focal Deficit Psy/Mental Status: Alert, Normal Affect, Normal Mood - Problem List & Annotations (1) Cellulitis and abscess of foot SNOMED Code(s): 917739090, 479719977 Code(s): L03.119 - CELLULITIS OF UNSPECIFIED PART OF LIMB; L02.619 - CUTANEOUS ABSCESS OF UNSPECIFIED FOOT Status: Acute Priority: High Current Visit: Yes Onset Date: ~09/06/18 Annotation/Comment:: First clinic visit for the cellulitis and diabetic was 09-06-18. He has had improvement but not resolution. He has been following with [facility] [place] [place] and Dr. Edis Tang, Food And Beverage Coordinator on alternating weeks for the past couple months. Cellulitis symptoms acutely flared 2-3 days ago per pt. (2) Charcot foot due to diabetes mellitus SNOMED Code(s): 354781910, 685329158, 498905366 Code(s): E11.610 - TYPE 2 DIABETES MELLITUS W DIABETIC NEUROPATHIC ARTHROPATHY Status: Acute Priority: High Current Visit: Yes (3) Diabetes mellitus due to underlying condition with foot ulcer SNOMED Code(s): 6275156 Code(s): E08.621 - DIABETES MELLITUS DUE TO UNDERLYING CONDITION W FOOT ULCER ; L97.509 - NON-PRESSURE CHRONIC ULCER OTH PRT UNSP FOOT W UNSP SEVERITY Status: Acute Priority: High Current Visit: Yes Qualifiers: Diabetes mellitus mcc insulin use: with mcc use Qualified Code( s): E08.621 - Diabetes mellitus due to underlying condition with foot ulcer; L97.509 - Non-pressure chronic ulcer of other part of unspecified foot with unspecified severity; Z79.4 - senior care (current) use of insulin (4) Obesity, Class III, BMI 40-49.9 (morbid obesity) SNOMED Code(s): 531407189, 777024179, 44992521071348 Code(s): E66.01 - MORBID (SEVERE) OBESITY DUE TO EXCESS CALORIES Status: Acute Current Visit: Yes Annotation/Comment:: complicating factor in healing of diabetic foot ulcers (5) HTN (hypertension) SNOMED Code(s): 68546654 Code(s): I10 - ESSENTIAL (PRIMARY) HYPERTENSION Status: Chronic Priority : Medium Current Visit: Yes Qualifiers: Hypertension type: essential hypertension Qualified Code(s): I10 - Essential (primary) hypertension (6) Hyperlipemia SNOMED Code(s): 03197495 Code(s): E78.5 - HYPERLIPIDEMIA, UNSPECIFIED Status: Chronic Priority: Medium Current Visit: Yes Qualifiers: Hyperlipidemia type: unspecified Qualified Code(s): E78.5 - Hyperlipidemia , unspecified (7) Sleep apnea SNOMED Code(s): 59993559 Code(s): G47.30 - SLEEP APNEA, UNSPECIFIED Status: Chronic Priority: Medium Current Visit: Yes Qualifiers: Sleep apnea type: obstructive Qualified Code(s): G47.33 - Obstructive sleep apnea (adult) (pediatric) - Problem List Review Problem List Initiated/Reviewed/Updated: Yes - My Orders Last 24 Hours: My Active Orders 03/04/19 08:00 Insulin Glarg,Human.Rec.Analog [LantUS] 25 unit SUBCUT DAILY metFORMIN [Glucophage] 500 mg PO BID 03/04/19 16:00 Ciprofloxacin in D5W [Cipro in D5W 400 MG/200 ML] 400 mg Premix Bag 1 bag IV Q8H 03/05/19 05:11 CMP [COMPREHENSIVE METABOLIC PN,CMP] [CHEM] Routine 03/06/19 15:30 VANCOMYCIN TROUGH [CHEM] Routine - Plan Plan:: 02-27-19 Gabriella Smallwood PA-C 58 yr-old male patient admitted to [facility] for treatment of acute R foot cellulitis with diabetic ulcer, OP therapy failure. I did talk to Dr. Edis Tang, Food And Beverage Coordinator earlier this week who is concerned that we have not been able to get this healed although it has made improvement. However today patient tells me that three nights ago he had lots of pain in this area, and two days ago the redness and swelling markedly worsened (this was after his last visit with Dr. Tang). He is started on IV Fortaz and Vanco. Lactic acid 2.7 today, will repeat with AM labs. Wound culture taken from drainage dorsal aspect of the 1st MTP joint/ toe. Dr. Tang had obtained a sample of the drainage from the ulcer earlier this week but I have not received a report on that yet. Bedrest is ordered to offload pressure on the foot, so subcut Lovenox is ordered prophylactically. His will bring in his CPAP from home, and we will continue home settings. 02/28/19 Ingrid Stack MD Swelling and redness have decreased in the right foot. Initial C&S staph. Continue IV antibiotics. 03/01/19 Ingrid Stack MD Swelling and redness of right foot continues to decrease. Drainage is decreasing. Continue IV antibiotics. 03/02/19 Ingrid Stack MD C&S today reports E-coli resistant to rocephin. Antibiotics changed. Leg/foot improving. MRI tomorrow. This diabetic foot ulcer started on the plantar surface and exploded through the dorsum of the right foot. Osteomyelitis is a distinct possibility. MRI tomorrow. Continue IV antibiotics. 03/03/19 late entry Ingrid Stack MD Foot continues slow improvement. Still with drainage. MRI done but results pending. C&S from [facility] MRSA sensitive to vancomycin. He requires inpatient status to continue IV antibiotics due to complex serious foot ulcer with Charcot joint. He is at serious risk for possibility of amputation if this serious deep foot infection is not treated successfully. We need MRI results before deciding how long this serious infection requires IV antibiotics. He refuses transfer to [place]. 03/04/19 Ingrid Stack MD Foot continues slow improvement. Still drainage on dorsum of foot. MRI results still pending. C&S results MRSA and E-coli on appropriate antibiotics IV vancomycin, and IV cipro (increase dose needs high dose coverage) and IV metronidazole. He requires continued inpatient status to continue IV antibiotics for this serious diabetic foot ulcer and cellulitis. Also closely monitoring blood sugars since IV cipro is interacting and causing hypoglycemia. Insulin has been majorly adjusted. He refuses transfer to [facility]. I did talk to Dr. Edis Tang today.
[2019-03-05] MEDS: Ciprofloxacin in D5W 400 MG in Premix Bag 1 BAG IV SCH ×6 (00:57→20:12)
[2019-03-05] MEDS: metroNIDAZOLE/Normal Saline 500 MG in Premix Bag 1 BAG IV SCH ×2 (02:00→09:45)
[2019-03-05] MEDS: Vancomycin 2 GM in Sodium Chloride 0.9% 500 ML IV SCH ×2 (03:01→16:12)
[2019-03-05] MEDS: Sodium Chloride 0.9% 10 ML Syringe FLUSH PRN ×3 (03:02→16:13)
[2019-03-05] MEDS: Benazepril 10 MG Tab PO SCH (07:33)
[2019-03-05] MEDS: Metoprolol Tartrate 25 MG Tab PO SCH ×2 (07:34→20:06)
[2019-03-05] MEDS: metFORMIN 500 MG Tab PO SCH (07:35)
[2019-03-05] MEDS: Magnesium Oxide 400 MG Tab PO SCH (07:35)
[2019-03-05] MEDS: Enoxaparin 40 MG/0.4 ML Syringe SUBCUT SCH (07:36)
[2019-03-05] MEDS: Sodium Chloride 0.9% 10 ML Syringe FLUSH SCH ×2 (07:36→20:13)
[2019-03-05] MEDS: DAPAGLIFLOZIN PROPANEDIOL 10 MG PO SCH (07:38)
[2019-03-05] MEDS: Insulin Lispro 100 Units/ML 3 ML Vial SUBCUT SCH ×3 (07:39→17:07)
[2019-03-05] MEDS: Insulin Glarg,Human.Rec.Analog 100 UNIT/ML ML SUBCUT SCH ×2 (07:41→20:09)
[2019-03-05 07:49] LABS: CHLORIDE,CL 103 mmol/L (98-107); SODIUM,NA 141 mmol/L (136-145)
--- NOTE | 2019-03-05 15:31 | PCM.PN ---
- General Info Date of Service: 03/05/19 Admission Dx/Problem (Free Text): Admission Diagnosis/Problem Admission Diagnosis/Problem Cellulitis and abscess of foot Functional Status: Reports: Pain Controlled, Tolerating Diet - Review of Systems General: Reports: No Symptoms HEENT: Reports: No Symptoms Pulmonary: Reports: No Symptoms Cardiovascular: Reports: No Symptoms Gastrointestinal: Reports: No Symptoms Genitourinary: Reports: No Symptoms Musculoskeletal: Reports: No Symptoms Skin: Reports: No Symptoms Neurological: Reports: Numbness (bilateral feet) Psychiatric: Reports: No Symptoms - Patient Data Vitals - Most Recent: Last Vital Signs Temp 96.8 F 03/05/19 12:00 Pulse 71 03/05/19 12:00 Resp 16 03/05/19 12:00 BP 107/47 L 03/05/19 12:00 Pulse Ox 99 03/05/19 12:00 Weight - Most Recent: 332 lb 0.011 oz I&O - Last 24 Hours: Intake & Output 03/05/19 03/05/19 03/05/19 06:59 14:59 22:59 Intake Total 1140 1690 Balance 1140 1690 Lab Results Last 24 Hours: Laboratory Results - last 24 hr 03/04/19 03/04/19 03/04/19 Range/Units 15:24 15:24 17:08 WBC 10.4 H (4.0-10.2) K/uL RBC 4.64 (4.33-5.41) M/uL Hgb 13.9 (13.1-16.8) g/dL Hct 41.2 (39.0-49.0) % MCV 88.8 (84.0-98.0) fL MCH 30.0 (28.2-33.3) pg MCHC 33.7 (31.7-36.0) g/dL RDW 14.3 H (11.2-14.1) % Plt Count 266 (150-350) K/uL Neut % (Auto) 77.7 (45.0-80.0) % Lymph % (Auto) 12.1 (10.0-50.0) % [place] % (Auto) 6.9 (2.0-14.0) % Eos % (Auto) 2.8 (0.0-5.0) % Baso % (Auto) 0.5 (0.0-2.0) % Neut # (Auto) 8.05 H (1.40-7.00) K/uL Lymph # (Auto) 1.25 (0.50-3.50) K/uL [place] # (Auto) 0.71 (0.00-1.00) K/uL Eos # (Auto) 0.29 (0.00-0.50) K/uL Baso # (Auto) 0.05 (0.00-0.20) K/uL Sodium 141 (136-145) mmol/L Potassium 4.1 (3.5-5.1) mmol/L Chloride 103 (98-107) mmol/L Carbon Dioxide 28.5 (21.0-32.0) mmol/L BUN 17 (7-18) mg/dL Creatinine 0.98 (0.51-1.17) mg/dL Est Cr Clr Drug Dosing 89.21 mL/min Estimated GFR (MDRD) > 60 mL/min Glucose 131 H (74-106) mg/dL POC Glucose 135 H (65-110) mg/dl Calcium 8.7 (8.5-10.1) mg/dL Total Bilirubin 0.3 (0.2-1.0) mg/dL AST 109 H (15-37) U/L ALT 165 H (12-78) U/L Alkaline Phosphatase 127 H (46-116) IU/L C-Reactive Protein 1.3 H (<=0.9) mg/dL Total Protein 6.6 (6.4-8.2) g/dL Albumin 3.1 L (3.4-5.0) g/dL Vancomycin Trough 16.7 (10-20) ug/mL 03/05/19 03/05/19 03/05/19 Range/Units 07:15 07:21 11:14 WBC (4.0-10.2) K/uL RBC (4.33-5.41) M/uL Hgb (13.1-16.8) g/dL Hct (39.0-49.0) % MCV (84.0-98.0) fL MCH (28.2-33.3) pg MCHC (31.7-36.0) g/dL RDW (11.2-14.1) % Plt Count (150-350) K/uL Neut % (Auto) (45.0-80.0) % Lymph % (Auto) (10.0-50.0) % [place] % (Auto) (2.0-14.0) % Eos % (Auto) (0.0-5.0) % Baso % (Auto) (0.0-2.0) % Neut # (Auto) (1.40-7.00) K/uL Lymph # (Auto) (0.50-3.50) K/uL [place] # (Auto) (0.00-1.00) K/uL Eos # (Auto) (0.00-0.50) K/uL Baso # (Auto) (0.00-0.20) K/uL Sodium 141 (136-145) mmol/L Potassium 3.9 (3.5-5.1) mmol/L Chloride 103 (98-107) mmol/L Carbon Dioxide 28.9 (21.0-32.0) mmol/L BUN 15 (7-18) mg/dL Creatinine 0.89 (0.51-1.17) mg/dL Est Cr Clr Drug Dosing 98.23 mL/min Estimated GFR (MDRD) > 60 mL/min Glucose 139 H (74-106) mg/dL POC Glucose 146 H 133 H (65-110) mg/dl Calcium 8.6 (8.5-10.1) mg/dL Total Bilirubin 0.4 (0.2-1.0) mg/dL AST 92 H (15-37) U/L ALT 176 H (12-78) U/L Alkaline Phosphatase 127 H (46-116) IU/L C-Reactive Protein (<=0.9) mg/dL Total Protein 6.7 (6.4-8.2) g/dL Albumin 3.1 L (3.4-5.0) g/dL Vancomycin Trough (10-20) ug/mL [place] Results Last 24 Hours: Microbiology 02/27/19 16:20 Aerobic Blood Culture - Final Blood - Venous - Lab Draw NO GROWTH AFTER 5 DAYS Anaerobic Blood Culture - Final NO GROWTH AFTER 5 DAYS 02/27/19 15:45 Aerobic Blood Culture - Final Blood - Venous NO GROWTH AFTER 5 DAYS Anaerobic Blood Culture - Final NO GROWTH AFTER 5 DAYS Med Orders - Current: Current Medications Acetaminophen (Tylenol) 650 mg PO Q4H PRN PRN Reason: pain, fever >100.5 Last Admin: 03/04/19 20:50 Dose: 650 mg Benazepril HCl (Lotensin) 20 mg PO DAILY [facility] Last Admin: 03/05/19 07:33 Dose: 20 mg Vancomycin HCl 2 gm/ Sodium (Chloride) 500 mls @ 220 mls/hr IV Q12H [facility] Last Admin: 03/05/19 03:01 Dose: 220 mls/hr Ciprofloxacin/Dextrose 400 mg/ (Premix) 200 mls @ 200 mls/hr IV Q12HR [facility] Insulin Glargine (Lantus) 25 unit SUBCUT BEDTIME [facility] Last Admin: 03/04/19 19:56 Dose: 25 units Insulin Glargine (Lantus) 25 unit SUBCUT DAILY [facility] Last Admin: 03/05/19 07:41 Dose: 25 units Insulin Human Lispro (Humalog) 12 unit SUBCUT TID@0800,1200,1800 [facility] Last Admin: 03/05/19 12:20 Dose: 12 units Metoprolol Tartrate (Lopressor) 25 mg PO Q12HR [facility] Last Admin: 03/05/19 07:34 Dose: 25 mg Sodium Chloride (Saline Flush) 10 ml FLUSH ASDIRECTED PRN PRN Reason: Keep Vein Open Last Admin: 03/05/19 09:45 Dose: 10 ml Sodium Chloride (Saline Flush) 10 ml FLUSH Q12HR [facility] Last Admin: 03/05/19 07:36 Dose: 10 ml Vancomycin HCl (Pharmacy To Dose - Vancomycin) 1 dose .XX ASDIRECTED [facility] Discontinued Medications Atorvastatin Calcium (Lipitor) 40 mg PO DAILY [facility] Last Admin: 03/02/19 08:14 Dose: 40 mg Ceftazidime (Fortaz) 1 gm IVPUSH Q12HR [facility] Last Admin: 02/28/19 08:44 Dose: 1 gm Ceftriaxone Sodium (Rocephin) 1 gm IVPUSH Q12HR [facility] Enoxaparin Sodium (Lovenox) 150 mg SUBCUT Q12H [facility] Last Admin: 02/27/19 17:06 Dose: 150 mg Enoxaparin Sodium (Lovenox) 150 mg SUBCUT Q12H [facility] Last Admin: 02/28/19 08:25 Dose: 150 mg Enoxaparin Sodium (Lovenox) 40 mg SUBCUT DAILY [facility] Last Admin: 03/05/19 07:36 Dose: 40 mg Gadobenate Dimeglumine (Multihance) 20 ml IVPUSH ONETIME ONE Stop: 03/03/19 08:05 Last Admin: 03/03/19 16:36 Dose: Not Given Gadobenate Dimeglumine (Multihance) 20 ml .ROUTE .STK-MED ONE Stop: 03/03/19 01:01 Metronidazole 500 mg/ Premix 100 mls @ 100 mls/hr IV Q8H [facility] Last Admin: 03/05/19 09:45 Dose: 100 mls/hr Metronidazole 500 mg/ Premix 100 mls @ 100 mls/hr IV ONETIME ONE Stop: 02/28/19 01:44 Last Admin: 02/28/19 00:56 Dose: 100 mls/hr Ceftriaxone Sodium 1 gm/ (Sodium Chloride) 100 mls @ 200 mls/hr IV Q12H [facility] Last Admin: 03/02/19 08:16 Dose: Not Given Ciprofloxacin/Dextrose 400 mg/ (Premix) 200 mls @ 200 mls/hr IV Q12HR [facility] Last Infusion: 03/04/19 08:30 Dose: Infused Ciprofloxacin/Dextrose 400 mg/ (Premix) 200 mls @ 200 mls/hr IV ONETIME ONE Stop: 03/02/19 09:44 Last Infusion: 03/02/19 10:45 Dose: Infused Ciprofloxacin/Dextrose 400 mg/ (Premix) 200 mls @ 200 mls/hr IV Q8H [facility] Last Admin: 03/05/19 07:37 Dose: 200 mls/hr Insulin Glargine (Lantus) 34 unit SUBCUT DAILY [facility] Last Admin: 03/03/19 07:54 Dose: 34 units Insulin Glargine (Lantus) 50 unit SUBCUT BEDTIME [facility] Last Admin: 02/28/19 20:58 Dose: 50 unit Insulin Glargine (Lantus) 25 unit SUBCUT BEDTIME [facility] Last Admin: 03/01/19 20:52 Dose: Not Given Insulin Human Lispro (Humalog) 25 unit SUBCUT DAILY@1730 [facility] Last Admin: 02/28/19 17:31 Dose: 25 units Insulin Human Lispro (Humalog) 28 unit SUBCUT ACBREAKFAST [facility] Last Admin: 02/28/19 08:21 Dose: 28 units Insulin Human Lispro (Humalog) 28 unit SUBCUT DAILY@1130 [facility] Last Admin: 02/28/19 11:19 Dose: 28 units Insulin Human Lispro (Humalog) 0 unit SUBCUT TID@0800,1200,1800 [facility] Last Admin: 03/01/19 20:24 Dose: Not Given Insulin Human Lispro (Humalog) 12 unit SUBCUT ONETIME ONE Stop: 03/01/19 18:31 Last Admin: 03/01/19 18:29 Dose: 12 units Magnesium Oxide (Magnesium Oxide) 400 mg PO DAILY [facility] Last Admin: 03/05/19 07:35 Dose: 400 mg Metformin HCl (Glucophage) 1,000 mg PO BID [facility] Last Admin: 03/03/19 17:37 Dose: 1,000 mg Metformin HCl (Glucophage) 500 mg PO BID [facility] Last Admin: 03/05/19 07:35 Dose: 500 mg Metoprolol Tartrate (Lopressor) 25 mg PO BID [facility] Last Admin: 02/28/19 08:29 Dose: 25 mg #Own Med# Dapagliflozin Propanediol [Farxiga ] 10 Mg) 10 mg PO DAILY [facility] Last Admin: 03/05/19 07:38 Dose: 10 mg - Exam Quality Assessment: DVT Prophylaxis (stopped due to LFT elevation) General: Alert, Cooperative, No Acute Distress HEENT: Pupils Equal, Pupils Reactive, EOMI, Mucous Membr. Moist/[place] Neck: Trachea Midline, No JVD Lungs: Clear to Auscultation, Normal Respiratory Effort Cardiovascular: Regular Rate, Regular Rhythm GI/Abdominal Exam: Soft, Non-Tender, No Distention (Male) Exam: Deferred Back Exam: Normal Inspection Extremities: Non-Tender, No Pedal Edema Skin: Warm, Dry, Intact Wound/Incisions: Drainage (continues to decrease), Erythema Improving Neurological: No New Focal Deficit, Other (Charcot joint) Psy/Mental Status: Alert, Normal Affect, Normal Mood - Problem List & Annotations (1) Cellulitis and abscess of foot SNOMED Code(s): 666881825, 351100687 Code(s): L03.119 - CELLULITIS OF UNSPECIFIED PART OF LIMB; L02.619 - CUTANEOUS ABSCESS OF UNSPECIFIED FOOT Status: Acute Priority: High Current Visit: Yes Onset Date: ~09/06/18 Annotation/Comment:: First clinic visit for the cellulitis and diabetic was 09-06-18. He has had improvement but not resolution. He has [place] [facility] [place]. Edis Tang, [employer] on alternating weeks for the past couple months. Cellulitis symptoms acutely flared 2-3 days ago per pt. (2) Charcot foot due to diabetes mellitus SNOMED Code(s): 524600325, 782658351, 992517150 Code(s): E11.610 - TYPE 2 DIABETES MELLITUS W DIABETIC NEUROPATHIC ARTHROPATHY Status: Acute Priority: High Current Visit: Yes (3) Diabetes mellitus due to underlying condition with foot ulcer SNOMED Code(s): 6375294 Code(s): E08.621 - DIABETES MELLITUS DUE TO UNDERLYING CONDITION W FOOT ULCER ; L97.509 - NON-PRESSURE CHRONIC ULCER OTH PRT UNSP FOOT W UNSP SEVERITY Status: Acute Priority: High Current Visit: Yes Qualifiers: Diabetes mellitus intermediate insulin use: with terminal clerk use Qualified Code( s): E08.621 - Diabetes mellitus due to underlying condition with foot ulcer; L97.509 - Non-pressure chronic ulcer of other part of unspecified foot with unspecified severity; Z79.4 - FDC (current) use of insulin (4) Obesity, Class III, BMI 40-49.9 (morbid obesity) SNOMED Code(s): 626292984, 107814852, 91020960197209 Code(s): E66.01 - MORBID (SEVERE) OBESITY DUE TO EXCESS CALORIES Status: Acute Current Visit: Yes Annotation/Comment:: complicating factor in healing of diabetic foot ulcers (5) HTN (hypertension) SNOMED Code(s): 91976606 Code(s): I10 - ESSENTIAL (PRIMARY) HYPERTENSION Status: Chronic Priority : Medium Current Visit: Yes Qualifiers: Hypertension type: essential hypertension Qualified Code(s): I10 - Essential (primary) hypertension (6) Hyperlipemia SNOMED Code(s): 13539428 Code(s): E78.5 - HYPERLIPIDEMIA, UNSPECIFIED Status: Chronic Priority: Medium Current Visit: Yes Qualifiers: Hyperlipidemia type: unspecified Qualified Code(s): E78.5 - Hyperlipidemia , unspecified (7) Sleep apnea SNOMED Code(s): 78654961 Code(s): G47.30 - SLEEP APNEA, UNSPECIFIED Status: Chronic Priority: Medium Current Visit: Yes Qualifiers: Sleep apnea type: obstructive Qualified Code(s): G47.33 - Obstructive sleep apnea (adult) (pediatric) - Problem List Review Problem List Initiated/Reviewed/Updated: Yes - My Orders Last 24 Hours: My Active Orders 03/05/19 20:00 Ciprofloxacin in D5W [Cipro in D5W 400 MG/200 ML] 400 mg Premix Bag 1 bag IV Q12HR 03/06/19 15:30 BASIC METABOLIC PANEL,BMP [CHEM] Routine CBC WITH AUTO DIFF [HEME] Routine CRP [C-REACTIVE PROTEIN] [CHEM] Routine HEPATIC FUNCTION PANEL,HFP [CHEM] Routine VANCOMYCIN TROUGH [CHEM] Routine - Plan Plan:: 02-27-19 Gabriella Smallwood PA-C 58 yr-old male patient admitted to [facility] for treatment of acute R foot cellulitis with diabetic ulcer, OP therapy failure. I did talk to Dr. Edis Tang, [employer] earlier this week who is concerned that we have not been able to get this healed although it has made improvement. However today patient tells me that three nights ago he had lots of pain in this area, and two days ago the redness and swelling markedly worsened (this was after his last visit with Dr. Tang). He is started on IV Fortaz and Vanco. Lactic acid 2.7 today, will repeat with AM labs. Wound culture taken from drainage dorsal aspect of the 1st MTP joint/ toe. Dr. Tang had obtained a sample of the drainage from the ulcer earlier this week but I have not received a report on that yet. Bedrest is ordered to offload pressure on the foot, so subcut Lovenox is ordered prophylactically. His will bring in his CPAP from home, and we will continue home settings. 02/28/19 Ingrid Stack MD Swelling and redness have decreased in the right foot. Initial C&S staph. Continue IV antibiotics. 03/01/19 Ingrid Stack MD Swelling and redness of right foot continues to decrease. Drainage is decreasing. Continue IV antibiotics. 03/02/19 Ingrid Stack MD C&S today reports E-coli resistant to rocephin. Antibiotics changed. Leg/foot improving. MRI tomorrow. This diabetic foot ulcer started on the plantar surface and exploded through the dorsum of the right foot. Osteomyelitis is a distinct possibility. MRI tomorrow. Continue IV antibiotics. 03/03/19 late entry Ingrid Stack MD Foot continues slow improvement. Still with drainage. MRI done but results pending. C&S from [facility] MRSA sensitive to vancomycin. He requires inpatient status to continue IV antibiotics due to complex serious foot ulcer with Charcot joint. He is at serious risk for possibility of amputation if this serious deep foot infection is not treated successfully. We need MRI results before deciding how long this serious infection requires IV antibiotics. He refuses transfer to [place]. 03/04/19 Ingrid Stack MD Foot continues slow improvement. Still drainage on dorsum of foot. MRI results still pending. C&S results MRSA and E-coli on appropriate antibiotics IV vancomycin, and IV cipro (increase dose needs high dose coverage) and IV metronidazole. He requires continued inpatient status to continue IV antibiotics for this serious diabetic foot ulcer and cellulitis. Also closely monitoring blood sugars since IV cipro is interacting and causing hypoglycemia. Insulin has been majorly adjusted. He refuses transfer to [facility]. I did talk to Dr. Edis Tang today. 03/05/19 Ingrid Stack MD Foot continues to improve but liver function testing is increasing. I did talk to Megan pharmacist and I have adjusted antibiotics and antibiotic doses. He requires continued inpatient status to continue IV antibiotics and to continue monitoring his liver function tests. Also need to continue to monitor blood sugars with cipro and insulin interaction.
[2019-03-05] MEDS: Acetaminophen 325 MG Tab PO PRN (20:05)
[2019-03-06] MEDS: Vancomycin 2 GM in Sodium Chloride 0.9% 500 ML IV SCH ×2 (03:46→16:13)
[2019-03-06] MEDS: Insulin Lispro 100 Units/ML 3 ML Vial SUBCUT SCH ×3 (07:15→17:06)
[2019-03-06] MEDS: Benazepril 10 MG Tab PO SCH (07:24)
[2019-03-06] MEDS: Metoprolol Tartrate 25 MG Tab PO SCH ×2 (07:24→19:35)
[2019-03-06] MEDS: Insulin Glarg,Human.Rec.Analog 100 UNIT/ML ML SUBCUT SCH ×2 (07:26→19:25)
[2019-03-06] MEDS: Ciprofloxacin in D5W 400 MG in Premix Bag 1 BAG IV SCH ×4 (07:31→19:27)
[2019-03-06] MEDS: Sodium Chloride 0.9% 10 ML Syringe FLUSH PRN ×2 (07:32→16:14)
[2019-03-06] MEDS: Sodium Chloride 0.9% 10 ML Syringe FLUSH SCH ×2 (07:52→19:28)
--- NOTE | 2019-03-06 13:35 | PCM.PN ---
- General Info Date of Service: 03/06/19 Admission Dx/Problem (Free Text): Admission Diagnosis/Problem Admission Diagnosis/Problem Cellulitis and abscess of foot Functional Status: Reports: Pain Controlled, Tolerating Diet - Review of Systems General: Reports: No Symptoms HEENT: Reports: No Symptoms Pulmonary: Reports: No Symptoms Cardiovascular: Reports: No Symptoms Gastrointestinal: Reports: Diarrhea Genitourinary: Reports: No Symptoms Musculoskeletal: Reports: No Symptoms Skin: Reports: No Symptoms Neurological: Reports: No Symptoms Psychiatric: Reports: No Symptoms - Patient Data Vitals - Most Recent: Last Vital Signs Temp 97 F 03/06/19 12:00 Pulse 77 03/06/19 12:00 Resp 18 03/06/19 12:00 BP 135/63 03/06/19 12:00 Pulse Ox 100 03/06/19 07:43 Weight - Most Recent: 332 lb 0.011 oz I&O - Last 24 Hours: Intake & Output 03/05/19 03/06/19 03/06/19 22:59 06:59 14:59 Intake Total 402 630 920 Balance 402 630 920 Lab Results Last 24 Hours: Laboratory Results - last 24 hr 03/05/19 03/06/19 03/06/19 Range/Units 16:51 07:18 11:13 POC Glucose 152 H 167 H 200 H (65-110) mg/dl Med Orders - Current: Current Medications Acetaminophen (Tylenol) 650 mg PO Q4H PRN PRN Reason: pain, fever >100.5 Last Admin: 03/05/19 20:05 Dose: 650 mg Benazepril HCl (Lotensin) 20 mg PO DAILY [facility] Last Admin: 03/06/19 07:24 Dose: 20 mg Vancomycin HCl 2 gm/ Sodium (Chloride) 500 mls @ 220 mls/hr IV Q12H [facility] Last Admin: 03/06/19 03:46 Dose: 220 mls/hr Ciprofloxacin/Dextrose 400 mg/ (Premix) 200 mls @ 200 mls/hr IV Q12HR [facility] Last Admin: 03/06/19 07:31 Dose: 200 mls/hr Insulin Glargine (Lantus) 28 unit SUBCUT BEDTIME [facility] Insulin Glargine (Lantus) 28 unit SUBCUT DAILY [facility] Insulin Human Lispro (Humalog) 15 unit SUBCUT TID@0800,1200,1800 [facility] Metoprolol Tartrate (Lopressor) 25 mg PO Q12HR [facility] Last Admin: 03/06/19 07:24 Dose: 25 mg Sodium Chloride (Saline Flush) 10 ml FLUSH ASDIRECTED PRN PRN Reason: Keep Vein Open Last Admin: 03/06/19 07:32 Dose: 10 ml Sodium Chloride (Saline Flush) 10 ml FLUSH Q12HR [facility] Last Admin: 03/06/19 07:52 Dose: Not Given Vancomycin HCl (Pharmacy To Dose - Vancomycin) 1 dose .XX ASDIRECTED [facility] Discontinued Medications Atorvastatin Calcium (Lipitor) 40 mg PO DAILY [facility] Last Admin: 03/02/19 08:14 Dose: 40 mg Ceftazidime (Fortaz) 1 gm IVPUSH Q12HR [facility] Last Admin: 02/28/19 08:44 Dose: 1 gm Ceftriaxone Sodium (Rocephin) 1 gm IVPUSH Q12HR [facility] Enoxaparin Sodium (Lovenox) 150 mg SUBCUT Q12H [facility] Last Admin: 02/27/19 17:06 Dose: 150 mg Enoxaparin Sodium (Lovenox) 150 mg SUBCUT Q12H [facility] Last Admin: 02/28/19 08:25 Dose: 150 mg Enoxaparin Sodium (Lovenox) 40 mg SUBCUT DAILY [facility] Last Admin: 03/05/19 07:36 Dose: 40 mg Gadobenate Dimeglumine (Multihance) 20 ml IVPUSH ONETIME ONE Stop: 03/03/19 08:05 Last Admin: 03/03/19 16:36 Dose: Not Given Gadobenate Dimeglumine (Multihance) 20 ml .ROUTE .STK-MED ONE Stop: 03/03/19 01:01 Metronidazole 500 mg/ Premix 100 mls @ 100 mls/hr IV Q8H [facility] Last Admin: 03/05/19 09:45 Dose: 100 mls/hr Metronidazole 500 mg/ Premix 100 mls @ 100 mls/hr IV ONETIME ONE Stop: 02/28/19 01:44 Last Admin: 02/28/19 00:56 Dose: 100 mls/hr Ceftriaxone Sodium 1 gm/ (Sodium Chloride) 100 mls @ 200 mls/hr IV Q12H [facility] Last Admin: 03/02/19 08:16 Dose: Not Given Ciprofloxacin/Dextrose 400 mg/ (Premix) 200 mls @ 200 mls/hr IV Q12HR [facility] Last Infusion: 03/04/19 08:30 Dose: Infused Ciprofloxacin/Dextrose 400 mg/ (Premix) 200 mls @ 200 mls/hr IV ONETIME ONE Stop: 03/02/19 09:44 Last Infusion: 03/02/19 10:45 Dose: Infused Ciprofloxacin/Dextrose 400 mg/ (Premix) 200 mls @ 200 mls/hr IV Q8H [facility] Last Admin: 03/05/19 07:37 Dose: 200 mls/hr Insulin Glargine (Lantus) 34 unit SUBCUT DAILY [facility] Last Admin: 03/03/19 07:54 Dose: 34 units Insulin Glargine (Lantus) 50 unit SUBCUT BEDTIME [facility] Last Admin: 02/28/19 20:58 Dose: 50 unit Insulin Glargine (Lantus) 25 unit SUBCUT BEDTIME [facility] Last Admin: 03/01/19 20:52 Dose: Not Given Insulin Glargine (Lantus) 25 unit SUBCUT BEDTIME [facility] Last Admin: 03/05/19 20:09 Dose: 25 units Insulin Glargine (Lantus) 25 unit SUBCUT DAILY [facility] Last Admin: 03/06/19 07:26 Dose: 25 units Insulin Human Lispro (Humalog) 25 unit SUBCUT DAILY@1730 [facility] Last Admin: 02/28/19 17:31 Dose: 25 units Insulin Human Lispro (Humalog) 28 unit SUBCUT ACBREAKFAST [facility] Last Admin: 02/28/19 08:21 Dose: 28 units Insulin Human Lispro (Humalog) 28 unit SUBCUT DAILY@1130 [facility] Last Admin: 02/28/19 11:19 Dose: 28 units Insulin Human Lispro (Humalog) 0 unit SUBCUT TID@0800,1200,1800 [facility] Last Admin: 03/01/19 20:24 Dose: Not Given Insulin Human Lispro (Humalog) 12 unit SUBCUT TID@0800,1200,1800 [facility] Last Admin: 03/06/19 11:10 Dose: 12 units Insulin Human Lispro (Humalog) 12 unit SUBCUT ONETIME ONE Stop: 03/01/19 18:31 Last Admin: 03/01/19 18:29 Dose: 12 units Magnesium Oxide (Magnesium Oxide) 400 mg PO DAILY [facility] Last Admin: 03/05/19 07:35 Dose: 400 mg Metformin HCl (Glucophage) 1,000 mg PO BID [facility] Last Admin: 03/03/19 17:37 Dose: 1,000 mg Metformin HCl (Glucophage) 500 mg PO BID [facility] Last Admin: 03/05/19 07:35 Dose: 500 mg Metoprolol Tartrate (Lopressor) 25 mg PO BID [facility] Last Admin: 02/28/19 08:29 Dose: 25 mg #Own Med# Dapagliflozin Propanediol [Farxiga ] 10 Mg) 10 mg PO DAILY [facility] Last Admin: 03/05/19 07:38 Dose: 10 mg - Exam General: Alert, Cooperative, No Acute Distress HEENT: Pupils Equal, Pupils Reactive, EOMI, Mucous Membr. Moist/[place] Neck: Trachea Midline, No JVD Lungs: Clear to Auscultation, Normal Respiratory Effort Cardiovascular: Regular Rate, Regular Rhythm GI/Abdominal Exam: Soft, Non-Tender, No Distention (Male) Exam: Deferred Back Exam: Normal Inspection Extremities: Non-Tender, No Pedal Edema Skin: Warm, Dry, Intact Wound/Incisions: Healing Well, Drainage (decreasing), Erythema Improving Neurological: No New Focal Deficit, Other (Charcot joint right foot) - Problem List & Annotations (1) Cellulitis and abscess of foot SNOMED Code(s): 818492721, 537756156 Code(s): L03.119 - CELLULITIS OF UNSPECIFIED PART OF LIMB; L02.619 - CUTANEOUS ABSCESS OF UNSPECIFIED FOOT Status: Acute Priority: High Current Visit: Yes Onset Date: ~09/06/18 Annotation/Comment:: First clinic visit for the cellulitis and diabetic was 09-06-18. He has had improvement but not resolution. He has been following with [facility] and Dr. Edis Tang, [employer] Merch[employer] on alternating weeks for the past couple months. Cellulitis symptoms acutely flared 2-3 days ago per pt. (2) Charcot foot due to diabetes mellitus SNOMED Code(s): 332215627, 485636106, 436635968 Code(s): E11.610 - TYPE 2 DIABETES MELLITUS W DIABETIC NEUROPATHIC ARTHROPATHY Status: Acute Priority: High Current Visit: Yes (3) Diabetes mellitus due to underlying condition with foot ulcer SNOMED Code(s): 0332806 Code(s): E08.621 - DIABETES MELLITUS DUE TO UNDERLYING CONDITION W FOOT ULCER ; L97.509 - NON-PRESSURE CHRONIC ULCER OTH PRT UNSP FOOT W UNSP SEVERITY Status: Acute Priority: High Current Visit: Yes Qualifiers: Diabetes mellitus ferry terminal agent insulin use: with ferry terminal agent use Qualified Code( s): E08.621 - Diabetes mellitus due to underlying condition with foot ulcer; L97.509 - Non-pressure chronic ulcer of other part of unspecified foot with unspecified severity; Z79.4 - buttermaker continuous churn (current) use of insulin (4) Obesity, Class III, BMI 40-49.9 (morbid obesity) SNOMED Code(s): 235021111, 056648605, 64272292153494 Code(s): E66.01 - MORBID (SEVERE) OBESITY DUE TO EXCESS CALORIES Status: Acute Current Visit: Yes Annotation/Comment:: complicating factor in healing of diabetic foot ulcers (5) HTN (hypertension) SNOMED Code(s): 59337020 Code(s): I10 - ESSENTIAL (PRIMARY) HYPERTENSION Status: Chronic Priority : Medium Current Visit: Yes Qualifiers: Hypertension type: essential hypertension Qualified Code(s): I10 - Essential (primary) hypertension (6) Hyperlipemia SNOMED Code(s): 08130425 Code(s): E78.5 - HYPERLIPIDEMIA, UNSPECIFIED Status: Chronic Priority: Medium Current Visit: Yes Qualifiers: Hyperlipidemia type: unspecified Qualified Code(s): E78.5 - Hyperlipidemia , unspecified (7) Sleep apnea SNOMED Code(s): 71743598 Code(s): G47.30 - SLEEP APNEA, UNSPECIFIED Status: Chronic Priority: Medium Current Visit: Yes Qualifiers: Sleep apnea type: obstructive Qualified Code(s): G47.33 - Obstructive sleep apnea (adult) (pediatric) - Problem List Review Problem List Initiated/Reviewed/Updated: Yes - My Orders Last 24 Hours: My Active Orders 03/05/19 20:00 Ciprofloxacin in D5W [Cipro in D5W 400 MG/200 ML] 400 mg Premix Bag 1 bag IV Q12HR 03/06/19 15:30 BASIC METABOLIC PANEL,BMP [CHEM] Routine CBC WITH AUTO DIFF [HEME] Routine CRP [C-REACTIVE PROTEIN] [CHEM] Routine HEPATIC FUNCTION PANEL,HFP [CHEM] Routine VANCOMYCIN TROUGH [CHEM] Routine 03/06/19 18:00 Insulin Lispro [HumaLOG] 15 unit SUBCUT TID@0800,1200,1800 03/06/19 20:00 Insulin Glarg,Human.Rec.Analog [LantUS] 28 unit SUBCUT BEDTIME 03/07/19 08:00 Insulin Glarg,Human.Rec.Analog [LantUS] 28 unit SUBCUT DAILY - Plan Plan:: 02-27-19 Gabriella Smallwood PA-C 58 yr-old male patient admitted to [facility] for treatment of acute R foot cellulitis with diabetic ulcer, OP therapy failure. I did talk to Dr. Edis Tang, [employer] Merch[employer] earlier this week who is concerned that we have not been able to get this healed although it has made improvement. However today patient tells me that three nights ago he had lots of pain in this area, and two days ago the redness and swelling markedly worsened (this was after his last visit with Dr. Tang). He is started on IV Fortaz and Vanco. Lactic acid 2.7 today, will repeat with AM labs. Wound culture taken from drainage dorsal aspect of the 1st MTP joint/ toe. Dr. Tang had obtained a sample of the drainage from the ulcer earlier this week but I have not received a report on that yet. Bedrest is ordered to offload pressure on the foot, so subcut Lovenox is ordered prophylactically. His will bring in his CPAP from home, and we will continue home settings. 02/28/19 Ingrid Stack MD Swelling and redness have decreased in the right foot. Initial C&S staph. Continue IV antibiotics. 03/01/19 Ingrid Stack MD Swelling and redness of right foot continues to decrease. Drainage is decreasing. Continue IV antibiotics. 03/02/19 Ingrid Stack MD C&S today reports E-coli resistant to rocephin. Antibiotics changed. Leg/foot improving. MRI tomorrow. This diabetic foot ulcer started on the plantar surface and exploded through the dorsum of the right foot. Osteomyelitis is a distinct possibility. MRI tomorrow. Continue IV antibiotics. 03/03/19 late entry Ingrid Stack MD Foot continues slow improvement. Still with drainage. MRI done but results pending. C&S from [facility] MRSA sensitive to vancomycin. He requires inpatient status to continue IV antibiotics due to complex serious foot ulcer with Charcot joint. He is at serious risk for possibility of amputation if this serious deep foot infection is not treated successfully. We need MRI results before deciding how long this serious infection requires IV antibiotics. He refuses transfer to [facility]. 03/04/19 Ingrid Stack MD Foot continues slow improvement. Still drainage on dorsum of foot. MRI results still pending. C&S results MRSA and E-coli on appropriate antibiotics IV vancomycin, and IV cipro (increase dose needs high dose coverage) and IV metronidazole. He requires continued inpatient status to continue IV antibiotics for this serious diabetic foot ulcer and cellulitis. Also closely monitoring blood sugars since IV cipro is interacting and causing hypoglycemia. Insulin has been majorly adjusted. He refuses transfer to [facility]. I did talk to Dr. Edis Tang today. 03/05/19 Ingrid Stack MD Foot continues to improve but liver function testing is increasing. I did talk to Megan pharmacist and I have adjusted antibiotics and antibiotic doses. He requires continued inpatient status to continue IV antibiotics and to continue monitoring his liver function tests. Also need to continue to monitor blood sugars with cipro and insulin interaction. 03/06/19 Ingrid Stack MD Foot continues to improve. Awaiting lab results for today. Need liver function results. Blood sugars slight elevation so will adjust insulin again. He requires continued inpatient status due to seriousness of this deep diabetic foot ulcer, cellulitis, Charcot joint, and elevating liver function tests and need for close monitoring and possible medication adjustments, and monitoring of blood sugars due to interaction of insulin and cipro.
[2019-03-06 15:54] LABS: CHLORIDE,CL 102 mmol/L (98-107); SODIUM,NA 139 mmol/L (136-145)
[2019-03-06] MEDS: Acetaminophen 325 MG Tab PO PRN (17:08)
[2019-03-07] MEDS: Vancomycin 2 GM in Sodium Chloride 0.9% 500 ML IV SCH ×2 (03:34→15:33)
[2019-03-07 07:56] LABS: CHLORIDE,CL 101 mmol/L (98-107); SODIUM,NA 139 mmol/L (136-145)
[2019-03-07] MEDS: Metoprolol Tartrate 25 MG Tab PO SCH ×2 (08:05→20:17)
[2019-03-07] MEDS: Benazepril 10 MG Tab PO SCH (08:05)
[2019-03-07] MEDS: Ciprofloxacin in D5W 400 MG in Premix Bag 1 BAG IV SCH ×4 (08:05→20:15)
[2019-03-07] MEDS: Acetaminophen 325 MG Tab PO PRN ×2 (08:18→17:32)
[2019-03-07] MEDS: Sodium Chloride 0.9% 10 ML Syringe FLUSH SCH ×2 (08:19→20:18)
[2019-03-07] MEDS: Insulin Glarg,Human.Rec.Analog 100 UNIT/ML ML SUBCUT SCH ×2 (08:20→20:15)
[2019-03-07] MEDS: Insulin Lispro 100 Units/ML 3 ML Vial SUBCUT SCH ×3 (08:23→17:25)
[2019-03-07] MEDS: Sodium Chloride 0.9% 10 ML Syringe FLUSH PRN ×2 (15:34→17:26)
--- NOTE | 2019-03-07 22:59 | PCM.PN ---
- General Info Date of Service: 03/07/19 Admission Dx/Problem (Free Text): Admission Diagnosis/Problem Admission Diagnosis/Problem Cellulitis and abscess of foot Functional Status: Reports: Pain Controlled - Review of Systems General: Reports: No Symptoms HEENT: Reports: No Symptoms Pulmonary: Reports: No Symptoms Cardiovascular: Reports: No Symptoms Gastrointestinal: Reports: Diarrhea (mild probably from antibiotics) Genitourinary: Reports: No Symptoms Musculoskeletal: Reports: No Symptoms Skin: Reports: Other (diabetic foot ulcer x2 drainage decreasing) Neurological: Reports: Numbness (bilateral feet), Other (Charcot joint) Psychiatric: Reports: No Symptoms - Patient Data Vitals - Most Recent: Last Vital Signs Temp 97.3 F 03/07/19 20:00 Pulse 67 03/07/19 20:17 Resp 16 03/07/19 20:00 BP 123/57 L 03/07/19 20:17 Pulse Ox 98 03/07/19 20:00 Weight - Most Recent: 332 lb 0.011 oz I&O - Last 24 Hours: Intake & Output 03/07/19 03/07/19 03/07/19 06:59 14:59 22:59 Intake Total 955 140 3083 Balance 261 789 5306 Lab Results Last 24 Hours: Laboratory Results - last 24 hr 03/07/19 03/07/19 03/07/19 Range/Units 07:00 07:00 07:05 WBC 9.1 (4.0-10.2) K/uL RBC 4.96 (4.33-5.41) M/uL Hgb 14.7 (13.1-16.8) g/dL Hct 44.3 (39.0-49.0) % MCV 89.3 (84.0-98.0) fL MCH 29.6 (28.2-33.3) pg MCHC 33.2 (31.7-36.0) g/dL RDW 14.9 H (11.2-14.1) % Plt Count 254 (150-350) K/uL Neut % (Auto) 74.7 (45.0-80.0) % Lymph % (Auto) 14.4 (10.0-50.0) % Lamb % (Auto) 6.8 (2.0-14.0) % Eos % (Auto) 3.4 (0.0-5.0) % Baso % (Auto) 0.7 (0.0-2.0) % Neut # (Auto) 6.79 (1.40-7.00) K/uL Lymph # (Auto) 1.31 (0.50-3.50) K/uL Lamb # (Auto) 0.62 (0.00-1.00) K/uL Eos # (Auto) 0.31 (0.00-0.50) K/uL Baso # (Auto) 0.06 (0.00-0.20) K/uL Sodium 139 (136-145) mmol/L Potassium 4.1 (3.5-5.1) mmol/L Chloride 101 (98-107) mmol/L Carbon Dioxide 31.5 (21.0-32.0) mmol/L BUN 12 (7-18) mg/dL Creatinine 0.82 (0.51-1.17) mg/dL Est Cr Clr Drug Dosing 106.61 mL/min Estimated GFR (MDRD) > 60 mL/min Glucose 202 H (74-106) mg/dL POC Glucose 210 H (65-110) mg/dl Calcium 8.7 (8.5-10.1) mg/dL Total Bilirubin 0.4 (0.2-1.0) mg/dL AST 51 H (15-37) U/L ALT 150 H (12-78) U/L Alkaline Phosphatase 137 H (46-116) IU/L Total Protein 7.2 (6.4-8.2) g/dL Albumin 3.5 (3.4-5.0) g/dL 03/07/19 Range/Units 11:35 WBC (4.0-10.2) K/uL RBC (4.33-5.41) M/uL Hgb (13.1-16.8) g/dL Hct (39.0-49.0) % MCV (84.0-98.0) fL MCH (28.2-33.3) pg MCHC (31.7-36.0) g/dL RDW (11.2-14.1) % Plt Count (150-350) K/uL Neut % (Auto) (45.0-80.0) % Lymph % (Auto) (10.0-50.0) % Lamb % (Auto) (2.0-14.0) % Eos % (Auto) (0.0-5.0) % Baso % (Auto) (0.0-2.0) % Neut # (Auto) (1.40-7.00) K/uL Lymph # (Auto) (0.50-3.50) K/uL Lamb # (Auto) (0.00-1.00) K/uL Eos # (Auto) (0.00-0.50) K/uL Baso # (Auto) (0.00-0.20) K/uL Sodium (136-145) mmol/L Potassium (3.5-5.1) mmol/L Chloride (98-107) mmol/L Carbon Dioxide (21.0-32.0) mmol/L BUN (7-18) mg/dL Creatinine (0.51-1.17) mg/dL Est Cr Clr Drug Dosing mL/min Estimated GFR (MDRD) mL/min Glucose (74-106) mg/dL POC Glucose 185 H (65-110) mg/dl Calcium (8.5-10.1) mg/dL Total Bilirubin (0.2-1.0) mg/dL AST (15-37) U/L ALT (12-78) U/L Alkaline Phosphatase (46-116) IU/L Total Protein (6.4-8.2) g/dL Albumin (3.4-5.0) g/dL Med Orders - Current: Current Medications Acetaminophen (Tylenol) 650 mg PO Q4H PRN PRN Reason: pain, fever >100.5 Last Admin: 03/07/19 17:32 Dose: 650 mg Benazepril HCl (Lotensin) 20 mg PO DAILY [facility] Last Admin: 03/07/19 08:05 Dose: 20 mg Vancomycin HCl 2 gm/ Sodium (Chloride) 500 mls @ 220 mls/hr IV Q12H [facility] Last Admin: 03/07/19 15:33 Dose: 220 mls/hr Ciprofloxacin/Dextrose 400 mg/ (Premix) 200 mls @ 200 mls/hr IV Q12HR [facility] Last Admin: 03/07/19 20:15 Dose: 200 mls/hr Insulin Glargine (Lantus) 28 unit SUBCUT BEDTIME [facility] Last Admin: 03/07/19 20:15 Dose: 28 units Insulin Glargine (Lantus) 28 unit SUBCUT DAILY [facility] Last Admin: 03/07/19 08:20 Dose: 28 units Insulin Human Lispro (Humalog) 15 unit SUBCUT TID@0800,1200,1800 [facility] Last Admin: 03/07/19 17:25 Dose: 15 units Metoprolol Tartrate (Lopressor) 25 mg PO Q12HR [facility] Last Admin: 03/07/19 20:17 Dose: 25 mg Sodium Chloride (Saline Flush) 10 ml FLUSH ASDIRECTED PRN PRN Reason: Keep Vein Open Last Admin: 03/07/19 17:26 Dose: 10 ml Sodium Chloride (Saline Flush) 10 ml FLUSH Q12HR [facility] Last Admin: 03/07/19 20:18 Dose: 10 ml Vancomycin HCl (Pharmacy To Dose - Vancomycin) 1 dose .XX ASDIRECTED [facility] Discontinued Medications Atorvastatin Calcium (Lipitor) 40 mg PO DAILY [facility] Last Admin: 03/02/19 08:14 Dose: 40 mg Ceftazidime (Fortaz) 1 gm IVPUSH Q12HR [facility] Last Admin: 02/28/19 08:44 Dose: 1 gm Ceftriaxone Sodium (Rocephin) 1 gm IVPUSH Q12HR [facility] Enoxaparin Sodium (Lovenox) 150 mg SUBCUT Q12H [facility] Last Admin: 02/27/19 17:06 Dose: 150 mg Enoxaparin Sodium (Lovenox) 150 mg SUBCUT Q12H [facility] Last Admin: 02/28/19 08:25 Dose: 150 mg Enoxaparin Sodium (Lovenox) 40 mg SUBCUT DAILY [facility] Last Admin: 03/05/19 07:36 Dose: 40 mg Gadobenate Dimeglumine (Multihance) 20 ml IVPUSH ONETIME ONE Stop: 03/03/19 08:05 Last Admin: 03/03/19 16:36 Dose: Not Given Gadobenate Dimeglumine (Multihance) 20 ml .ROUTE .STK-MED ONE Stop: 03/03/19 01:01 Metronidazole 500 mg/ Premix 100 mls @ 100 mls/hr IV Q8H [facility] Last Admin: 03/05/19 09:45 Dose: 100 mls/hr Metronidazole 500 mg/ Premix 100 mls @ 100 mls/hr IV ONETIME ONE Stop: 02/28/19 01:44 Last Admin: 02/28/19 00:56 Dose: 100 mls/hr Ceftriaxone Sodium 1 gm/ (Sodium Chloride) 100 mls @ 200 mls/hr IV Q12H [facility] Last Admin: 03/02/19 08:16 Dose: Not Given Ciprofloxacin/Dextrose 400 mg/ (Premix) 200 mls @ 200 mls/hr IV Q12HR [facility] Last Infusion: 03/04/19 08:30 Dose: Infused Ciprofloxacin/Dextrose 400 mg/ (Premix) 200 mls @ 200 mls/hr IV ONETIME ONE Stop: 03/02/19 09:44 Last Infusion: 03/02/19 10:45 Dose: Infused Ciprofloxacin/Dextrose 400 mg/ (Premix) 200 mls @ 200 mls/hr IV Q8H [facility] Last Admin: 03/05/19 07:37 Dose: 200 mls/hr Insulin Glargine (Lantus) 34 unit SUBCUT DAILY [facility] Last Admin: 03/03/19 07:54 Dose: 34 units Insulin Glargine (Lantus) 50 unit SUBCUT BEDTIME [facility] Last Admin: 02/28/19 20:58 Dose: 50 unit Insulin Glargine (Lantus) 25 unit SUBCUT BEDTIME [facility] Last Admin: 03/01/19 20:52 Dose: Not Given Insulin Glargine (Lantus) 25 unit SUBCUT BEDTIME [facility] Last Admin: 03/05/19 20:09 Dose: 25 units Insulin Glargine (Lantus) 25 unit SUBCUT DAILY [facility] Last Admin: 03/06/19 07:26 Dose: 25 units Insulin Human Lispro (Humalog) 25 unit SUBCUT DAILY@1730 [facility] Last Admin: 02/28/19 17:31 Dose: 25 units Insulin Human Lispro (Humalog) 28 unit SUBCUT ACBREAKFAST [facility] Last Admin: 02/28/19 08:21 Dose: 28 units Insulin Human Lispro (Humalog) 28 unit SUBCUT DAILY@1130 [facility] Last Admin: 02/28/19 11:19 Dose: 28 units Insulin Human Lispro (Humalog) 0 unit SUBCUT TID@0800,1200,1800 [facility] Last Admin: 03/01/19 20:24 Dose: Not Given Insulin Human Lispro (Humalog) 12 unit SUBCUT TID@0800,1200,1800 [facility] Last Admin: 03/06/19 11:10 Dose: 12 units Insulin Human Lispro (Humalog) 12 unit SUBCUT ONETIME ONE Stop: 03/01/19 18:31 Last Admin: 03/01/19 18:29 Dose: 12 units Magnesium Oxide (Magnesium Oxide) 400 mg PO DAILY [facility] Last Admin: 03/05/19 07:35 Dose: 400 mg Metformin HCl (Glucophage) 1,000 mg PO BID [facility] Last Admin: 03/03/19 17:37 Dose: 1,000 mg Metformin HCl (Glucophage) 500 mg PO BID [facility] Last Admin: 03/05/19 07:35 Dose: 500 mg Metoprolol Tartrate (Lopressor) 25 mg PO BID [facility] Last Admin: 02/28/19 08:29 Dose: 25 mg #Own Med# Dapagliflozin Propanediol [Farxiga ] 10 Mg) 10 mg PO DAILY [facility] Last Admin: 03/05/19 07:38 Dose: 10 mg - Exam General: Alert, Cooperative, No Acute Distress HEENT: Mucous Membr. Moist/[place] Neck: Trachea Midline, No JVD Lungs: Clear to Auscultation, Normal Respiratory Effort Cardiovascular: Regular Rate, Regular Rhythm GI/Abdominal Exam: Soft, Non-Tender, No Distention (Male) Exam: Deferred Back Exam: Normal Inspection Extremities: Non-Tender, Redness (right leg and foot resolved) Skin: Warm, Dry, Intact Wound/Incisions: Drainage (now on plantar surface is decreasing), Other (ulcer dorsum foot is improving with no subcutaneous tissue visualized, ulcer plantar surface persists with drainage and surrounding callous) Neurological: No New Focal Deficit, Other (Charcot joint right foot) Psy/Mental Status: Alert, Normal Affect, Normal Mood - Problem List & Annotations (1) Cellulitis and abscess of foot SNOMED Code(s): 866776315, 741771217 Code(s): L03.119 - CELLULITIS OF UNSPECIFIED PART OF LIMB; L02.619 - CUTANEOUS ABSCESS OF UNSPECIFIED FOOT Status: Acute Priority: High Current Visit: Yes Onset Date: ~09/06/18 Annotation/Comment:: First clinic visit for the cellulitis and diabetic was 09-06-18. He has had improvement but not resolution. He has been following with [facility] [place] and Dr. Edis Tagn, [employer] on alternating weeks for the past couple months. Cellulitis symptoms acutely flared 2-3 days ago per pt. (2) Charcot foot due to diabetes mellitus SNOMED Code(s): 820028882, 781556212, 387112726 Code(s): E11.610 - TYPE 2 DIABETES MELLITUS W DIABETIC NEUROPATHIC ARTHROPATHY Status: Acute Priority: High Current Visit: Yes (3) Diabetes mellitus due to underlying condition with foot ulcer SNOMED Code(s): 1422858 Code(s): E08.621 - DIABETES MELLITUS DUE TO UNDERLYING CONDITION W FOOT ULCER ; L97.509 - NON-PRESSURE CHRONIC ULCER OTH PRT UNSP FOOT W UNSP SEVERITY Status: Acute Priority: High Current Visit: Yes Qualifiers: Diabetes mellitus prison insulin use: with prison use Qualified Code( s): E08.621 - Diabetes mellitus due to underlying condition with foot ulcer; L97.509 - Non-pressure chronic ulcer of other part of unspecified foot with unspecified severity; Z79.4 - care home (current) use of insulin (4) Obesity, Class III, BMI 40-49.9 (morbid obesity) SNOMED Code(s): 326055798, 089274015, 14075858641147 Code(s): E66.01 - MORBID (SEVERE) OBESITY DUE TO EXCESS CALORIES Status: Acute Current Visit: Yes Annotation/Comment:: complicating factor in healing of diabetic foot ulcers (5) HTN (hypertension) SNOMED Code(s): 06511242 Code(s): I10 - ESSENTIAL (PRIMARY) HYPERTENSION Status: Chronic Priority : Medium Current Visit: Yes Qualifiers: Hypertension type: essential hypertension Qualified Code(s): I10 - Essential (primary) hypertension (6) Hyperlipemia SNOMED Code(s): 58266942 Code(s): E78.5 - HYPERLIPIDEMIA, UNSPECIFIED Status: Chronic Priority: Medium Current Visit: Yes Qualifiers: Hyperlipidemia type: unspecified Qualified Code(s): E78.5 - Hyperlipidemia , unspecified (7) Sleep apnea SNOMED Code(s): 17264872 Code(s): G47.30 - SLEEP APNEA, UNSPECIFIED Status: Chronic Priority: Medium Current Visit: Yes Qualifiers: Sleep apnea type: obstructive Qualified Code(s): G47.33 - Obstructive sleep apnea (adult) (pediatric) - Problem List Review Problem List Initiated/Reviewed/Updated: Yes - My Orders Last 24 Hours: My Active Orders 03/07/19 08:00 Insulin Glarg,Human.Rec.Analog [LantUS] 28 unit SUBCUT DAILY 03/07/19 16:57 Ready for Discharge [RC] PER UNIT ROUTINE 03/08/19 05:11 CBC WITH AUTO DIFF [HEME] Routine CMP [COMPREHENSIVE METABOLIC PN,CMP] [CHEM] Routine - Plan Plan:: 02-27-19 Gabriella Smallwood PA-C 58 yr-old male patient admitted to [facility] for treatment of acute R foot cellulitis with diabetic ulcer, OP therapy failure. I did talk to Dr. Edis Tang, [employer] earlier this week who is concerned that we have not been able to get this healed although it has made improvement. However today patient tells me that three nights ago he had lots of pain in this area, and two days ago the redness and swelling markedly worsened (this was after his last visit with Dr. Tang). He is started on IV Fortaz and Vanco. Lactic acid 2.7 today, will repeat with AM labs. Wound culture taken from drainage dorsal aspect of the 1st MTP joint/ toe. Dr. Tang had obtained a sample of the drainage from the ulcer earlier this week but I have not received a report on that yet. Bedrest is ordered to offload pressure on the foot, so subcut Lovenox is ordered prophylactically. His will bring in his CPAP from home, and we will continue home settings. 02/28/19 Ingrid Stack MD Swelling and redness have decreased in the right foot. Initial C&S staph. Continue IV antibiotics. 03/01/19 Ingrid Stack MD Swelling and redness of right foot continues to decrease. Drainage is decreasing. Continue IV antibiotics. 03/02/19 Ingrid Stack MD C&S today reports E-coli resistant to rocephin. Antibiotics changed. Leg/foot improving. MRI tomorrow. This diabetic foot ulcer started on the plantar surface and exploded through the dorsum of the right foot. Osteomyelitis is a distinct possibility. MRI tomorrow. Continue IV antibiotics. 03/03/19 late entry Ingrid Stack MD Foot continues slow improvement. Still with drainage. MRI done but results pending. C&S from [facility] MRSA sensitive to vancomycin. He requires inpatient status to continue IV antibiotics due to complex serious foot ulcer with Charcot joint. He is at serious risk for possibility of amputation if this serious deep foot infection is not treated successfully. We need MRI results before deciding how long this serious infection requires IV antibiotics. He refuses transfer to [place]. 03/04/19 Ingrid Stack MD Foot continues slow improvement. Still drainage on dorsum of foot. MRI results still pending. C&S results MRSA and E-coli on appropriate antibiotics IV vancomycin, and IV cipro (increase dose needs high dose coverage) and IV metronidazole. He requires continued inpatient status to continue IV antibiotics for this serious diabetic foot ulcer and cellulitis. Also closely monitoring blood sugars since IV cipro is interacting and causing hypoglycemia. Insulin has been majorly adjusted. He refuses transfer to [facility]. I did talk to Dr. Edis Tang today. 03/05/19 Ingrid Stack MD Foot continues to improve but liver function testing is increasing. I did talk to Megan pharmacist and I have adjusted antibiotics and antibiotic doses. He requires continued inpatient status to continue IV antibiotics and to continue monitoring his liver function tests. Also need to continue to monitor blood sugars with cipro and insulin interaction. 03/06/19 Ingrid Stack MD Foot continues to improve. Awaiting lab results for today. Need liver function results. Blood sugars slight elevation so will adjust insulin again. He requires continued inpatient status due to seriousness of this deep diabetic foot ulcer, cellulitis, Charcot joint, and elevating liver function tests and need for close monitoring and possible medication adjustments, and monitoring of blood sugars due to interaction of insulin and cipro. 03/07/19 Ingrid Stack MD Foot continues improvement with diabetic ulcers x2 and Charcot joint. Blood sugars still fluctuating and needing to adjust insulin. Liver function tests slight improvement but still remain elevated. He requires continued inpatient status due to this serious deep diabetic foot ulcer, cellulitis, Charcot joint, elevated liver function tests. He refuses transfer to [place]. Discharge plans discussed.
[2019-03-08] MEDS: Sodium Chloride 0.9% 10 ML Syringe FLUSH PRN ×2 (04:17→13:57)
[2019-03-08] MEDS: Vancomycin 2 GM in Sodium Chloride 0.9% 500 ML IV SCH ×3 (04:17→17:11)
[2019-03-08] MEDS: Ciprofloxacin in D5W 400 MG in Premix Bag 1 BAG IV SCH ×2 (07:18)
[2019-03-08] MEDS: Metoprolol Tartrate 25 MG Tab PO SCH (07:18)
[2019-03-08] MEDS: Benazepril 10 MG Tab PO SCH (07:18)
[2019-03-08] MEDS: Insulin Lispro 100 Units/ML 3 ML Vial SUBCUT SCH ×2 (07:19→11:41)
[2019-03-08] MEDS: Insulin Glarg,Human.Rec.Analog 100 UNIT/ML ML SUBCUT SCH (07:19)
[2019-03-08] MEDS: Sodium Chloride 0.9% 10 ML Syringe FLUSH SCH (07:30)
[2019-03-08 08:03] LABS: CHLORIDE,CL 103 mmol/L (98-107); SODIUM,NA 140 mmol/L (136-145)
--- NOTE | 2019-03-08 11:33 | PCM.PN ---
- General Info Date of Service: 03/08/19 Admission Dx/Problem (Free Text): Admission Diagnosis/Problem Admission Diagnosis/Problem Cellulitis and abscess of foot Functional Status: Reports: Pain Controlled, Tolerating Diet, Ambulating, Urinating - Review of Systems General: Reports: No Symptoms HEENT: Reports: No Symptoms Pulmonary: Reports: No Symptoms Cardiovascular: Reports: No Symptoms Gastrointestinal: Reports: No Symptoms Genitourinary: Reports: No Symptoms Musculoskeletal: Reports: Foot Pain ("sometimes it aches a little, not much") Skin: Reports: No Symptoms Neurological: Reports: Numbness (chronic bilat feet) Psychiatric: Reports: No Symptoms - Patient Data Vitals - Most Recent: Last Vital Signs Temp 97.3 F 03/08/19 08:00 Pulse 71 03/08/19 08:00 Resp 16 03/08/19 08:00 BP 122/57 L 03/08/19 08:00 Pulse Ox 100 03/08/19 08:00 Weight - Most Recent: 332 lb 0.011 oz I&O - Last 24 Hours: Intake & Output 03/07/19 03/08/19 03/08/19 22:59 06:59 14:59 Intake Total 1040 740 Balance 1040 740 Lab Results Last 24 Hours: Laboratory Results - last 24 hr 03/07/19 03/08/19 03/08/19 Range/Units 11:35 07:05 07:05 WBC 8.6 (4.0-10.2) K/uL RBC 4.89 (4.33-5.41) M/uL Hgb 14.6 (13.1-16.8) g/dL Hct 43.5 (39.0-49.0) % MCV 89.0 (84.0-98.0) fL MCH 29.9 (28.2-33.3) pg MCHC 33.6 (31.7-36.0) g/dL RDW 14.8 H (11.2-14.1) % Plt Count 225 (150-350) K/uL Neut % (Auto) 77.1 (45.0-80.0) % Lymph % (Auto) 12.4 (10.0-50.0) % [place] % (Auto) 6.5 (2.0-14.0) % Eos % (Auto) 3.5 (0.0-5.0) % Baso % (Auto) 0.5 (0.0-2.0) % Neut # (Auto) 6.65 (1.40-7.00) K/uL Lymph # (Auto) 1.07 (0.50-3.50) K/uL [place] # (Auto) 0.56 (0.00-1.00) K/uL Eos # (Auto) 0.30 (0.00-0.50) K/uL Baso # (Auto) 0.04 (0.00-0.20) K/uL Sodium 140 (136-145) mmol/L Potassium 4.0 (3.5-5.1) mmol/L Chloride 103 (98-107) mmol/L Carbon Dioxide 31.4 (21.0-32.0) mmol/L BUN 11 (7-18) mg/dL Creatinine 0.79 (0.51-1.17) mg/dL Est Cr Clr Drug Dosing 110.66 mL/min Estimated GFR (MDRD) > 60 mL/min Glucose 202 H (74-106) mg/dL POC Glucose 185 H (65-110) mg/dl Calcium 8.6 (8.5-10.1) mg/dL Total Bilirubin 0.4 (0.2-1.0) mg/dL AST 33 (15-37) U/L ALT 111 H (12-78) U/L Alkaline Phosphatase 121 H (46-116) IU/L Total Protein 6.9 (6.4-8.2) g/dL Albumin 3.2 L (3.4-5.0) g/dL 03/08/19 Range/Units 07:08 WBC (4.0-10.2) K/uL RBC (4.33-5.41) M/uL Hgb (13.1-16.8) g/dL Hct (39.0-49.0) % MCV (84.0-98.0) fL MCH (28.2-33.3) pg MCHC (31.7-36.0) g/dL RDW (11.2-14.1) % Plt Count (150-350) K/uL Neut % (Auto) (45.0-80.0) % Lymph % (Auto) (10.0-50.0) % [place] % (Auto) (2.0-14.0) % Eos % (Auto) (0.0-5.0) % Baso % (Auto) (0.0-2.0) % Neut # (Auto) (1.40-7.00) K/uL Lymph # (Auto) (0.50-3.50) K/uL [place] # (Auto) (0.00-1.00) K/uL Eos # (Auto) (0.00-0.50) K/uL Baso # (Auto) (0.00-0.20) K/uL Sodium (136-145) mmol/L Potassium (3.5-5.1) mmol/L Chloride (98-107) mmol/L Carbon Dioxide (21.0-32.0) mmol/L BUN (7-18) mg/dL Creatinine (0.51-1.17) mg/dL Est Cr Clr Drug Dosing mL/min Estimated GFR (MDRD) mL/min Glucose (74-106) mg/dL POC Glucose 192 H (65-110) mg/dl Calcium (8.5-10.1) mg/dL Total Bilirubin (0.2-1.0) mg/dL AST (15-37) U/L ALT (12-78) U/L Alkaline Phosphatase (46-116) IU/L Total Protein (6.4-8.2) g/dL Albumin (3.4-5.0) g/dL Med Orders - Current: Current Medications Acetaminophen (Tylenol) 650 mg PO Q4H PRN PRN Reason: pain, fever >100.5 Last Admin: 03/07/19 17:32 Dose: 650 mg Benazepril HCl (Lotensin) 20 mg PO DAILY [facility] Last Admin: 03/08/19 07:18 Dose: 20 mg Vancomycin HCl 2 gm/ Sodium (Chloride) 500 mls @ 220 mls/hr IV Q12H [facility] Last Admin: 03/08/19 04:17 Dose: 220 mls/hr Ciprofloxacin/Dextrose 400 mg/ (Premix) 200 mls @ 200 mls/hr IV Q12HR [facility] Last Admin: 03/08/19 07:18 Dose: 200 mls/hr Insulin Glargine (Lantus) 28 unit SUBCUT BEDTIME [facility] Last Admin: 03/07/19 20:15 Dose: 28 units Insulin Glargine (Lantus) 28 unit SUBCUT DAILY [facility] Last Admin: 03/08/19 07:19 Dose: 28 units Insulin Human Lispro (Humalog) 15 unit SUBCUT TID@0800,1200,1800 [facility] Last Admin: 03/08/19 07:19 Dose: 15 units Metoprolol Tartrate (Lopressor) 25 mg PO Q12HR [facility] Last Admin: 03/08/19 07:18 Dose: 25 mg Sodium Chloride (Saline Flush) 10 ml FLUSH ASDIRECTED PRN PRN Reason: Keep Vein Open Last Admin: 03/08/19 04:17 Dose: 10 ml Sodium Chloride (Saline Flush) 10 ml FLUSH Q12HR [facility] Last Admin: 03/08/19 07:30 Dose: 10 ml Vancomycin HCl (Pharmacy To Dose - Vancomycin) 1 dose .XX ASDIRECTED [facility] Discontinued Medications Atorvastatin Calcium (Lipitor) 40 mg PO DAILY [facility] Last Admin: 03/02/19 08:14 Dose: 40 mg Ceftazidime (Fortaz) 1 gm IVPUSH Q12HR [facility] Last Admin: 02/28/19 08:44 Dose: 1 gm Ceftriaxone Sodium (Rocephin) 1 gm IVPUSH Q12HR [facility] Enoxaparin Sodium (Lovenox) 150 mg SUBCUT Q12H [facility] Last Admin: 02/27/19 17:06 Dose: 150 mg Enoxaparin Sodium (Lovenox) 150 mg SUBCUT Q12H [facility] Last Admin: 02/28/19 08:25 Dose: 150 mg Enoxaparin Sodium (Lovenox) 40 mg SUBCUT DAILY [facility] Last Admin: 03/05/19 07:36 Dose: 40 mg Gadobenate Dimeglumine (Multihance) 20 ml IVPUSH ONETIME ONE Stop: 03/03/19 08:05 Last Admin: 03/03/19 16:36 Dose: Not Given Gadobenate Dimeglumine (Multihance) 20 ml .ROUTE .STK-MED ONE Stop: 03/03/19 01:01 Metronidazole 500 mg/ Premix 100 mls @ 100 mls/hr IV Q8H [facility] Last Admin: 03/05/19 09:45 Dose: 100 mls/hr Metronidazole 500 mg/ Premix 100 mls @ 100 mls/hr IV ONETIME ONE Stop: 02/28/19 01:44 Last Admin: 02/28/19 00:56 Dose: 100 mls/hr Ceftriaxone Sodium 1 gm/ (Sodium Chloride) 100 mls @ 200 mls/hr IV Q12H [facility] Last Admin: 03/02/19 08:16 Dose: Not Given Ciprofloxacin/Dextrose 400 mg/ (Premix) 200 mls @ 200 mls/hr IV Q12HR [facility] Last Infusion: 03/04/19 08:30 Dose: Infused Ciprofloxacin/Dextrose 400 mg/ (Premix) 200 mls @ 200 mls/hr IV ONETIME ONE Stop: 03/02/19 09:44 Last Infusion: 03/02/19 10:45 Dose: Infused Ciprofloxacin/Dextrose 400 mg/ (Premix) 200 mls @ 200 mls/hr IV Q8H [facility] Last Admin: 03/05/19 07:37 Dose: 200 mls/hr Insulin Glargine (Lantus) 34 unit SUBCUT DAILY [facility] Last Admin: 03/03/19 07:54 Dose: 34 units Insulin Glargine (Lantus) 50 unit SUBCUT BEDTIME [facility] Last Admin: 02/28/19 20:58 Dose: 50 unit Insulin Glargine (Lantus) 25 unit SUBCUT BEDTIME [facility] Last Admin: 03/01/19 20:52 Dose: Not Given Insulin Glargine (Lantus) 25 unit SUBCUT BEDTIME [facility] Last Admin: 03/05/19 20:09 Dose: 25 units Insulin Glargine (Lantus) 25 unit SUBCUT DAILY [facility] Last Admin: 03/06/19 07:26 Dose: 25 units Insulin Human Lispro (Humalog) 25 unit SUBCUT DAILY@1730 [facility] Last Admin: 02/28/19 17:31 Dose: 25 units Insulin Human Lispro (Humalog) 28 unit SUBCUT ACBREAKFAST [facility] Last Admin: 02/28/19 08:21 Dose: 28 units Insulin Human Lispro (Humalog) 28 unit SUBCUT DAILY@1130 [facility] Last Admin: 02/28/19 11:19 Dose: 28 units Insulin Human Lispro (Humalog) 0 unit SUBCUT TID@0800,1200,1800 [facility] Last Admin: 03/01/19 20:24 Dose: Not Given Insulin Human Lispro (Humalog) 12 unit SUBCUT TID@0800,1200,1800 [facility] Last Admin: 03/06/19 11:10 Dose: 12 units Insulin Human Lispro (Humalog) 12 unit SUBCUT ONETIME ONE Stop: 03/01/19 18:31 Last Admin: 03/01/19 18:29 Dose: 12 units Magnesium Oxide (Magnesium Oxide) 400 mg PO DAILY [facility] Last Admin: 03/05/19 07:35 Dose: 400 mg Metformin HCl (Glucophage) 1,000 mg PO BID [facility] Last Admin: 03/03/19 17:37 Dose: 1,000 mg Metformin HCl (Glucophage) 500 mg PO BID [facility] Last Admin: 03/05/19 07:35 Dose: 500 mg Metoprolol Tartrate (Lopressor) 25 mg PO BID [facility] Last Admin: 02/28/19 08:29 Dose: 25 mg #Own Med# Dapagliflozin Propanediol [Farxiga ] 10 Mg) 10 mg PO DAILY [facility] Last Admin: 03/05/19 07:38 Dose: 10 mg - Exam General: Alert, Oriented HEENT: Pupils Equal, Pupils Reactive, EOMI, Mucous Membr. Moist/[place] Neck: Supple, Trachea Midline Lungs: Clear to Auscultation, Normal Respiratory Effort Cardiovascular: Regular Rate, Regular Rhythm GI/Abdominal Exam: Normal Bowel Sounds, Soft, Non-Tender, No Distention (Male) Exam: Deferred Back Exam: Normal Inspection Skin: Warm, Dry Wound/Incisions: Drainage (to dressing over plantar ulceration, no obvious drainage with inspection), Erythema Improving, Other (depth of ulceration to plantar aspect overlying the 1st metatarsal head much improved from admit. Wound to dorsal aspect dry.) Neurological: No New Focal Deficit Psy/Mental Status: Alert, Normal Affect, Normal Mood - Problem List & Annotations (1) Cellulitis and abscess of foot SNOMED Code(s): 682843659, 305999040 Code(s): L03.119 - CELLULITIS OF UNSPECIFIED PART OF LIMB; L02.619 - CUTANEOUS ABSCESS OF UNSPECIFIED FOOT Status: Acute Priority: High Current Visit: Yes Onset Date: ~09/06/18 Annotation/Comment:: First clinic visit for the cellulitis and diabetic was 09-06-18. He has had improvement but not resolution. He has been following with [facility] and Dr. dEis Tang, Research Instructor on alternating weeks for the past couple months. Cellulitis symptoms acutely flared 2-3 days ago per pt. (2) HTN (hypertension) SNOMED Code(s): 56964252 Code(s): I10 - ESSENTIAL (PRIMARY) HYPERTENSION Status: Chronic Priority : Medium Current Visit: Yes Qualifiers: Hypertension type: essential hypertension Qualified Code(s): I10 - Essential (primary) hypertension (3) Hyperlipemia SNOMED Code(s): 15599024 Code(s): E78.5 - HYPERLIPIDEMIA, UNSPECIFIED Status: Chronic Priority: Medium Current Visit: Yes Qualifiers: Hyperlipidemia type: unspecified Qualified Code(s): E78.5 - Hyperlipidemia , unspecified (4) Obesity, Class III, BMI 40-49.9 (morbid obesity) SNOMED Code(s): 627475500, 924479566, 79192440610098 Code(s): E66.01 - MORBID (SEVERE) OBESITY DUE TO EXCESS CALORIES Status: Acute Current Visit: Yes Annotation/Comment:: complicating factor in healing of diabetic foot ulcers (5) Sleep apnea SNOMED Code(s): 46822856 Code(s): G47.30 - SLEEP APNEA, UNSPECIFIED Status: Chronic Priority: Medium Current Visit: Yes Qualifiers: Sleep apnea type: obstructive Qualified Code(s): G47.33 - Obstructive sleep apnea (adult) (pediatric) (6) Diabetes mellitus due to underlying condition with complication SNOMED Code(s): 7435390, 70232685 Code(s): E08.8 - DIABETES DUE TO UNDERLYING CONDITION W UNSP COMPLICATIONS Status: Chronic Priority: High Current Visit: Yes Annotation/Comment:: with neuropathy and h/o foot ulcers - Problem List Review Problem List Initiated/Reviewed/Updated: Yes - Plan Plan:: 02-27-19 Gabriella Smallwood PA-C 58 yr-old male patient admitted to status for treatment of acute R foot cellulitis with diabetic ulcer, OP therapy failure. I did talk to Dr. Edis Tang, Research Instructor earlier this week who is concerned that we have not been able to get this healed although it has made improvement. However today patient tells me that three nights ago he had lots of pain in this area, and two days ago the redness and swelling markedly worsened (this was after his last visit with Dr. Tang). He is started on IV Fortaz and Vanco. Lactic acid 2.7 today, will repeat with AM labs. Wound culture taken from drainage dorsal aspect of the 1st MTP joint/ toe. Dr. Tang had obtained a sample of the drainage from the ulcer earlier this week but I have not received a report on that yet. Bedrest is ordered to offload pressure on the foot, so subcut Lovenox is ordered prophylactically. His will bring in his CPAP from home, and we will continue home settings. 02/28/19 Ingrid Stack MD Swelling and redness have decreased in the right foot. Initial C&S staph. Continue IV antibiotics. 03/01/19 Ingrid Stack MD Swelling and redness of right foot continues to decrease. Drainage is decreasing. Continue IV antibiotics. 03/02/19 Ingrid Stack MD C&S today reports E-coli resistant to rocephin. Antibiotics changed. Leg/foot improving. MRI tomorrow. This diabetic foot ulcer started on the plantar surface and exploded through the dorsum of the right foot. Osteomyelitis is a distinct possibility. MRI tomorrow. Continue IV antibiotics. 03/03/19 late entry Ingrid Stack MD Foot continues slow improvement. Still with drainage. MRI done but results pending. C&S from [facility] MRSA sensitive to vancomycin. He requires inpatient status to continue IV antibiotics due to complex serious foot ulcer with Charcot joint. He is at serious risk for possibility of amputation if this serious deep foot infection is not treated successfully. We need MRI results before deciding how long this serious infection requires IV antibiotics. He refuses transfer to [place]. 03/04/19 Ingrid Stack MD Foot continues slow improvement. Still drainage on dorsum of foot. MRI results still pending. C&S results MRSA and E-coli on appropriate antibiotics IV vancomycin, and IV cipro (increase dose needs high dose coverage) and IV metronidazole. He requires continued inpatient status to continue IV antibiotics for this serious diabetic foot ulcer and cellulitis. Also closely monitoring blood sugars since IV cipro is interacting and causing hypoglycemia. Insulin has been majorly adjusted. He refuses transfer to [facility]. I did talk to Dr. Edis Tang today. 03/05/19 Ingrid Stack MD Foot continues to improve but liver function testing is increasing. I did talk to Megan pharmacist and I have adjusted antibiotics and antibiotic doses. He requires continued inpatient status to continue IV antibiotics and to continue monitoring his liver function tests. Also need to continue to monitor blood sugars with cipro and insulin interaction. 03/06/19 Ingrid Stack MD Foot continues to improve. Awaiting lab results for today. Need liver function results. Blood sugars slight elevation so will adjust insulin again. He requires continued inpatient status due to seriousness of this deep diabetic foot ulcer, cellulitis, Charcot joint, and elevating liver function tests and need for close monitoring and possible medication adjustments, and monitoring of blood sugars due to interaction of insulin and cipro. 03/07/19 Ingrid Stack MD Foot continues improvement with diabetic ulcers x2 and Charcot joint. Blood sugars still fluctuating and needing to adjust insulin. Liver function tests slight improvement but still remain elevated. He requires continued inpatient status due to this serious deep diabetic foot ulcer, cellulitis, Charcot joint, elevated liver function tests. He refuses transfer to [place]. Discharge plans discussed. 03-08-19 Gabriella Smallwood PA-C Patient is anxious for discharge, he is leaving on vacation to [facility] with his and grown children. Dr. Quintero did put in all discharge orders last evening and these are reviewed with him. He will try to return to [place] before end of clinic hours Sunday the so that I can recheck this foot before I leave on vacation the , otherwise he will follow up with JOSE Bell at [facility] that following week. He is scheduled for Podiatry followup with Dr. Edis Tang April 01. Labs including liver function tests will need to be done on followup clinic visit. He will monitor blood sugars while on vacation and he is invited to call me next week with any concerns regarding these.
--- NOTE | 2019-03-08 11:48 | PCM.DCSUM1 ---
Discharge Summary - Hospital Course Free Text/Narrative:: [facility] of significant diabetic ulcerations x 2 on the R foot that had proven recalcitrant to OP treatment. HPI Initial Comments: Patient had been following with [place] [facility] [place] as Dr. Edis Tang, Reading Recovery Teacher and had made slow progress but two-three before the day of admit he developed a new wound on the dorsum of the foot, over the 1st metatarsal head, with acute erythema, swelling and drainage. Diagnosis: Stroke: No - Discharge Data Discharge Date: 03/08/19 Discharge Disposition: Home, Self-Care 01 Condition: Fair - Discharge Diagnosis/Problem(s) (1) Cellulitis and abscess of foot SNOMED Code(s): 460577715, 039825578 ICD Code: L03.119 - CELLULITIS OF UNSPECIFIED PART OF LIMB; L02.619 - CUTANEOUS ABSCESS OF UNSPECIFIED FOOT Status: Acute Priority: High Current Visit: Yes Onset Date: ~09/06/18 Problem Details: First clinic visit for the cellulitis and diabetic was 09-06-18. He has had improvement but not resolution. He has been following with [facility] and Dr. Edis Tang, Reading Recovery Teacher on alternating weeks for the past couple months. Cellulitis symptoms acutely flared 2-3 days ago per pt. (2) HTN (hypertension) SNOMED Code(s): 05642363 ICD Code: I10 - ESSENTIAL (PRIMARY) HYPERTENSION Status: Chronic Priority : Medium Current Visit: Yes Qualifiers: Hypertension type: essential hypertension Qualified Code(s): I10 - Essential (primary) hypertension (3) Hyperlipemia SNOMED Code(s): 50835891 ICD Code: E78.5 - HYPERLIPIDEMIA, UNSPECIFIED Status: Chronic Priority: Medium Current Visit: Yes Qualifiers: Hyperlipidemia type: unspecified Qualified Code(s): E78.5 - Hyperlipidemia , unspecified (4) Obesity, Class III, BMI 40-49.9 (morbid obesity) SNOMED Code(s): 426429782, 061237704, 62587985199892 ICD Code: E66.01 - MORBID (SEVERE) OBESITY DUE TO EXCESS CALORIES Status: Acute Current Visit: Yes Problem Details: complicating factor in healing of diabetic foot ulcers (5) Sleep apnea SNOMED Code(s): 45609373 ICD Code: G47.30 - SLEEP APNEA, UNSPECIFIED Status: Chronic Priority: Medium Current Visit: Yes Qualifiers: Sleep apnea type: obstructive Qualified Code(s): G47.33 - Obstructive sleep apnea (adult) (pediatric) (6) Diabetes mellitus due to underlying condition with complication SNOMED Code(s): 0978909, 84130536 ICD Code: E08.8 - DIABETES DUE TO UNDERLYING CONDITION W UNSP COMPLICATIONS Status: Chronic Priority: High Current Visit: Yes Problem Details: with neuropathy and h/o foot ulcers - Patient Summary/Data Hospital Course: Patient was started on IV Vanco and Fortaz. Initial culture report from Dr. Tang's office from the plantar ulcer came back with staph, but later culture from the dorsal wound came back with MRSA and E. Coli. Antibiotics were adjusted. MRI did not indicate Osteomyelitis which had been a concern but did find Charcot joint and severe degeneration. He did require IP treatment longer than 96 hours because of the severe nature of the ulcerations and infection, complicated by long-standing diabetes and neuropathy. - Patient Instructions Diet: Diabetic Diet Activity: As Tolerated, Partial Weight Bearing (right foot) Driving: May Drive Today Showering/Bathing: May Shower Wound/Incision Care: Change Dressing Daily Notify Provider of: Fever, Increased Pain, Swelling and Redness, Drainage, Nausea and/or Vomiting Other/Special Instructions: Appointment with Atiya FRAUSTO at [facility] and follow-up with Dr. Edis Tang at [facility] as already scheduled. Daily dressing changes as ordered. - Discharge Plan *PRESCRIPTION DRUG MONITORING PROGRAM REVIEWED*: Not Applicable *COPY OF PRESCRIPTION DRUG MONITORING REPORT IN PATIENT EJFFREY: Not Applicable Prescriptions/Med Rec: Ciprofloxacin HCl 750 mg PO Q12HR #30 tablet Insulin Aspart [NovoLOG] 20 unit SUBCUT TID #15 pen Insulin Detemir [Levemir Flextouch] 30 unit SUBCUT Q12HR@0800,1999 #15 pen Home Medications: Home Meds Aspirin 325 mg PO DAILY 02/27/19 [History] Benazepril [Lotensin] 20 mg PO DAILY 02/27/19 [History] Metoprolol Tartrate 25 mg PO BID 02/27/19 [History] Ciprofloxacin HCl 750 mg PO Q12HR #30 tablet 03/04/19 [Rx] Insulin Aspart [NovoLOG] 20 unit SUBCUT TID #15 pen 03/07/19 [Rx] Insulin Detemir [Levemir Flextouch] 30 unit SUBCUT Q12HR@0800,2000 #15 pen 03/07 [Rx] Oxygen Therapy Mode: Room Air Patient Handouts: Ceftazidime injection, Enoxaparin injection, Cellulitis, Adult, [id number], Vancomycin injection, Metronidazole injection, Ciprofloxacin injection - Discharge Summary/Plan Comment DC Time >30 min.: Yes Discharge Summary/Plan Comment: Discharge to home 03-08-19 on po antibiotics to follow up at [facility] and with Podiatry. - Patient Data Vitals - Most Recent: Last Vital Signs Temp 97.3 F 03/08/19 08:00 Pulse 71 03/08/19 08:00 Resp 16 03/08/19 08:00 BP 122/57 L 03/08/19 08:00 Pulse Ox 100 03/08/19 08:00 Weight - Most Recent: 332 lb 0.011 oz I&O - Last 24 hours: Intake & Output 03/07/19 03/08/19 03/08/19 22:59 06:59 14:59 Intake Total 1040 740 Balance 1040 740 Lab Results - Last 24 hrs: Laboratory Results - last 24 hr 03/08/19 03/08/19 03/08/19 Range/Units 07:05 07:05 07:08 WBC 8.6 (4.0-10.2) K/uL RBC 4.89 (4.33-5.41) M/uL Hgb 14.6 (13.1-16.8) g/dL Hct 43.5 (39.0-49.0) % MCV 89.0 (84.0-98.0) fL MCH 29.9 (28.2-33.3) pg MCHC 33.6 (31.7-36.0) g/dL RDW 14.8 H (11.2-14.1) % Plt Count 225 (150-350) K/uL Neut % (Auto) 77.1 (45.0-80.0) % Lymph % (Auto) 12.4 (10.0-50.0) % [place] % (Auto) 6.5 (2.0-14.0) % Eos % (Auto) 3.5 (0.0-5.0) % Baso % (Auto) 0.5 (0.0-2.0) % Neut # (Auto) 6.65 (1.40-7.00) K/uL Lymph # (Auto) 1.07 (0.50-3.50) K/uL [place] # (Auto) 0.56 (0.00-1.00) K/uL Eos # (Auto) 0.30 (0.00-0.50) K/uL Baso # (Auto) 0.04 (0.00-0.20) K/uL Sodium 140 (136-145) mmol/L Potassium 4.0 (3.5-5.1) mmol/L Chloride 103 (98-107) mmol/L Carbon Dioxide 31.4 (21.0-32.0) mmol/L BUN 11 (7-18) mg/dL Creatinine 0.79 (0.51-1.17) mg/dL Est Cr Clr Drug Dosing 110.66 mL/min Estimated GFR (MDRD) > 60 mL/min Glucose 202 H (74-106) mg/dL POC Glucose 192 H (65-110) mg/dl Calcium 8.6 (8.5-10.1) mg/dL Total Bilirubin 0.4 (0.2-1.0) mg/dL AST 33 (15-37) U/L ALT 111 H (12-78) U/L Alkaline Phosphatase 121 H (46-116) IU/L Total Protein 6.9 (6.4-8.2) g/dL Albumin 3.2 L (3.4-5.0) g/dL 03/08/19 Range/Units 11:25 WBC (4.0-10.2) K/uL RBC (4.33-5.41) M/uL Hgb (13.1-16.8) g/dL Hct (39.0-49.0) % MCV (84.0-98.0) fL MCH (28.2-33.3) pg MCHC (31.7-36.0) g/dL RDW (11.2-14.1) % Plt Count (150-350) K/uL Neut % (Auto) (45.0-80.0) % Lymph % (Auto) (10.0-50.0) % [place] % (Auto) (2.0-14.0) % Eos % (Auto) (0.0-5.0) % Baso % (Auto) (0.0-2.0) % Neut # (Auto) (1.40-7.00) K/uL Lymph # (Auto) (0.50-3.50) K/uL [place] # (Auto) (0.00-1.00) K/uL Eos # (Auto) (0.00-0.50) K/uL Baso # (Auto) (0.00-0.20) K/uL Sodium (136-145) mmol/L Potassium (3.5-5.1) mmol/L Chloride (98-107) mmol/L Carbon Dioxide (21.0-32.0) mmol/L BUN (7-18) mg/dL Creatinine (0.51-1.17) mg/dL Est Cr Clr Drug Dosing mL/min Estimated GFR (MDRD) mL/min Glucose (74-106) mg/dL POC Glucose 193 H (65-110) mg/dl Calcium (8.5-10.1) mg/dL Total Bilirubin (0.2-1.0) mg/dL AST (15-37) U/L ALT (12-78) U/L Alkaline Phosphatase (46-116) IU/L Total Protein (6.4-8.2) g/dL Albumin (3.4-5.0) g/dL Med Orders - Current: Current Medications Acetaminophen (Tylenol) 650 mg PO Q4H PRN PRN Reason: pain, fever >100.5 Last Admin: 03/07/19 17:32 Dose: 650 mg Benazepril HCl (Lotensin) 20 mg PO DAILY [facility] Last Admin: 03/08/19 07:18 Dose: 20 mg Vancomycin HCl 2 gm/ Sodium (Chloride) 500 mls @ 220 mls/hr IV Q12H [facility] Last Admin: 03/08/19 04:17 Dose: 220 mls/hr Ciprofloxacin/Dextrose 400 mg/ (Premix) 200 mls @ 200 mls/hr IV Q12HR [facility] Last Admin: 03/08/19 07:18 Dose: 200 mls/hr Insulin Glargine (Lantus) 28 unit SUBCUT BEDTIME [facility] Last Admin: 03/07/19 20:15 Dose: 28 units Insulin Glargine (Lantus) 28 unit SUBCUT DAILY [facility] Last Admin: 03/08/19 07:19 Dose: 28 units Insulin Human Lispro (Humalog) 15 unit SUBCUT TID@0800,1200,1800 [facility] Last Admin: 03/08/19 11:41 Dose: 15 units Metoprolol Tartrate (Lopressor) 25 mg PO Q12HR [facility] Last Admin: 03/08/19 07:18 Dose: 25 mg Sodium Chloride (Saline Flush) 10 ml FLUSH ASDIRECTED PRN PRN Reason: Keep Vein Open Last Admin: 03/08/19 04:17 Dose: 10 ml Sodium Chloride (Saline Flush) 10 ml FLUSH Q12HR [facility] Last Admin: 03/08/19 07:30 Dose: 10 ml Vancomycin HCl (Pharmacy To Dose - Vancomycin) 1 dose .XX ASDIRECTED [facility] Discontinued Medications Atorvastatin Calcium (Lipitor) 40 mg PO DAILY [facility] Last Admin: 03/02/19 08:14 Dose: 40 mg Ceftazidime (Fortaz) 1 gm IVPUSH Q12HR [facility] Last Admin: 02/28/19 08:44 Dose: 1 gm Ceftriaxone Sodium (Rocephin) 1 gm IVPUSH Q12HR [facility] Enoxaparin Sodium (Lovenox) 150 mg SUBCUT Q12H [facility] Last Admin: 02/27/19 17:06 Dose: 150 mg Enoxaparin Sodium (Lovenox) 150 mg SUBCUT Q12H [facility] Last Admin: 02/28/19 08:25 Dose: 150 mg Enoxaparin Sodium (Lovenox) 40 mg SUBCUT DAILY [facility] Last Admin: 03/05/19 07:36 Dose: 40 mg Gadobenate Dimeglumine (Multihance) 20 ml IVPUSH ONETIME ONE Stop: 03/03/19 08:05 Last Admin: 03/03/19 16:36 Dose: Not Given Gadobenate Dimeglumine (Multihance) 20 ml .ROUTE .STK-MED ONE Stop: 03/03/19 01:01 Metronidazole 500 mg/ Premix 100 mls @ 100 mls/hr IV Q8H [facility] Last Admin: 03/05/19 09:45 Dose: 100 mls/hr Metronidazole 500 mg/ Premix 100 mls @ 100 mls/hr IV ONETIME ONE Stop: 02/28/19 01:44 Last Admin: 02/28/19 00:56 Dose: 100 mls/hr Ceftriaxone Sodium 1 gm/ (Sodium Chloride) 100 mls @ 200 mls/hr IV Q12H [facility] Last Admin: 03/02/19 08:16 Dose: Not Given Ciprofloxacin/Dextrose 400 mg/ (Premix) 200 mls @ 200 mls/hr IV Q12HR [facility] Last Infusion: 03/04/19 08:30 Dose: Infused Ciprofloxacin/Dextrose 400 mg/ (Premix) 200 mls @ 200 mls/hr IV ONETIME ONE Stop: 03/02/19 09:44 Last Infusion: 03/02/19 10:45 Dose: Infused Ciprofloxacin/Dextrose 400 mg/ (Premix) 200 mls @ 200 mls/hr IV Q8H [facility] Last Admin: 03/05/19 07:37 Dose: 200 mls/hr Insulin Glargine (Lantus) 34 unit SUBCUT DAILY [facility] Last Admin: 03/03/19 07:54 Dose: 34 units Insulin Glargine (Lantus) 50 unit SUBCUT BEDTIME [facility] Last Admin: 02/28/19 20:58 Dose: 50 unit Insulin Glargine (Lantus) 25 unit SUBCUT BEDTIME [facility] Last Admin: 03/01/19 20:52 Dose: Not Given Insulin Glargine (Lantus) 25 unit SUBCUT BEDTIME [facility] Last Admin: 03/05/19 20:09 Dose: 25 units Insulin Glargine (Lantus) 25 unit SUBCUT DAILY [facility] Last Admin: 03/06/19 07:26 Dose: 25 units Insulin Human Lispro (Humalog) 25 unit SUBCUT DAILY@1730 [facility] Last Admin: 02/28/19 17:31 Dose: 25 units Insulin Human Lispro (Humalog) 28 unit SUBCUT ACBREAKFAST [facility] Last Admin: 02/28/19 08:21 Dose: 28 units Insulin Human Lispro (Humalog) 28 unit SUBCUT DAILY@1130 [facility] Last Admin: 02/28/19 11:19 Dose: 28 units Insulin Human Lispro (Humalog) 0 unit SUBCUT TID@0800,1200,1800 [facility] Last Admin: 03/01/19 20:24 Dose: Not Given Insulin Human Lispro (Humalog) 12 unit SUBCUT TID@0800,1200,1800 [facility] Last Admin: 03/06/19 11:10 Dose: 12 units Insulin Human Lispro (Humalog) 12 unit SUBCUT ONETIME ONE Stop: 03/01/19 18:31 Last Admin: 03/01/19 18:29 Dose: 12 units Magnesium Oxide (Magnesium Oxide) 400 mg PO DAILY [facility] Last Admin: 03/05/19 07:35 Dose: 400 mg Metformin HCl (Glucophage) 1,000 mg PO BID [facility] Last Admin: 03/03/19 17:37 Dose: 1,000 mg Metformin HCl (Glucophage) 500 mg PO BID [facility] Last Admin: 03/05/19 07:35 Dose: 500 mg Metoprolol Tartrate (Lopressor) 25 mg PO BID [facility] Last Admin: 02/28/19 08:29 Dose: 25 mg #Own Med# Dapagliflozin Propanediol [Farxiga ] 10 Mg) 10 mg PO DAILY [facility] Last Admin: 03/05/19 07:38 Dose: 10 mg
== END 2019-03-08 17:00 | disposition home or self-care (01) | DRG 380 ==
LOC: LL.MS 14:38
PROVIDERS: ADMIT Physician Assistant; ATTEND Family Medicine
DX: E11.628 Type 2 diabetes mellitus with other skin complications (principal); L97.519 Non-pressure chronic ulcer of other part of right foot with unspecified severity; L03.115 Cellulitis of right lower limb; E11.621 Type 2 diabetes mellitus with foot ulcer; E11.40 Type 2 diabetes mellitus with diabetic neuropathy, unspecified; E66.01 Morbid (severe) obesity due to excess calories; L02.611 Cutaneous abscess of right foot; I10 Essential (primary) hypertension; E78.5 Hyperlipidemia, unspecified; G47.33 Obstructive sleep apnea (adult) (pediatric); B95.62 Methicillin resistant Staphylococcus aureus infection as the cause of diseases classified elsewhere; B96.20 Unspecified Escherichia coli [E. coli] as the cause of diseases classified elsewhere; E78.00 Pure hypercholesterolemia, unspecified; Z79.82 Long term (current) use of aspirin; Z79.4 Long term (current) use of insulin
CPT/HCPCS: 36415; 73630-RT; 73720-RT; 80048; 80053; 80076; 80202; 82962; 83605; 83735; 85025; 86140; 87040; 87070; 87077; 87186; 87205; A4217; A9270-GY; A9577; J0696; J0713; J0744; J1650; J1815; J1815-GY; J3370; J3490; J7040; J7050

== ENCOUNTER 2019-06-07 11:23 | Emergency (ER) | payer BC ==
[2019-06-07 12:24] LABS: CHLORIDE,CL 98 mmol/L (98-107); SODIUM,NA 135 mmol/L (136-145)
[2019-06-07] MEDS ORDERED: Cephalexin 250 MG Cap PO ONE (12:27)
[2019-06-07 12:38] LABS: HEMOGLOBIN A1C 7.6 % (4.3-5.7)
--- NOTE | 2019-06-07 13:05 | EDM.PDOC ---
ED HPI GENERAL MEDICAL PROBLEM - General Chief Complaint: Lower Extremity Injury/Pain Stated Complaint: Right foot pain, increased swelling Time Seen by Provider: 06/07/19 11:49 Source of Information: Reports: Patient History Limitations: Reports: No Limitations - History of Present Illness INITIAL COMMENTS - FREE TEXT/NARRATIVE: Patient comes to ER with complaint of increasing redness/warmth/pain/swelling of right lower leg and foot. Had surgery on right great toe at [facility] at end of April due to non-healing ulcer. Off antibiotics for over a week. No new trauma to area. Patient has had episodes of cellulitis in past involving lower legs. No fevers. No other complaints. IDDM. 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: Acetaminophen right foot pain Pain Score (Numeric/FACES): 3 - Related Data Allergies Allergy/AdvReac Type Severity Reaction Status Date / Time No Known Allergies Allergy Verified 06/07/19 12:50 Home Meds: Home Meds Aspirin 325 mg PO DAILY 02/27/19 [History] Benazepril [Lotensin] 20 mg PO DAILY 02/27/19 [History] Metoprolol Tartrate 25 mg PO BID 02/27/19 [History] Acetaminophen [Tylenol Extra Strength] 1,000 mg PO Q4HR PRN 06/07/19 [History] Insulin Aspart [NovoLOG] 28 unit SUBCUT TID 06/07/19 [History] Insulin Degludec [Tresiba] 68 unit SUBCUT DAILY 06/07/19 [History] Past Medical History Cardiovascular History: Reports: High Cholesterol, Hypertension Respiratory History: Reports: Sleep Apnea Other Respiratory History: uses CPAP Genitourinary History: Reports: Renal Calculus, Other (See Below) Other Genitourinary History: frequent urination Musculoskeletal History: Reports: Arthritis, Fracture, Other (See Below) Other Musculoskeletal History: chronic joint pain Endocrine/Metabolic History: Reports: Diabetes, Type II, Obesity/BMI 30+ Other Endocrine/Metabolic History: insulin-dependent, with neuropathy and h/o foot ulcers Dermatologic History: Reports: Other (See Below) Other Dermatologic History: chronic foot uler right foot - Past Surgical History GI Surgical History: Reports: Colonoscopy Musculoskeletal Surgical History: Reports: Other (See Below) Other Musculoskeletal Surgeries/Procedures:: great toe fracture, Social & Family History - Family History Family Medical History: Noncontributory - Caffeine Use Caffeine Use: Reports: Coffee - Living Situation & Occupation Living situation: Reports: Review of Systems - Review of Systems Review Of Systems: See Below Constitutional: Reports: No Symptoms Eyes: Denies: Vision Change Ears: Reports: No Symptoms Nose: Reports: No Symptoms Respiratory: Reports: No Symptoms. Denies: Pleuritic Chest Pain, Cough Cardiovascular: Reports: No Symptoms. Denies: Chest Pain GI/Abdominal: Reports: No Symptoms. Denies: Abdominal Pain, Diarrhea, Nausea, Vomiting Genitourinary: Reports: No Symptoms Musculoskeletal: Reports: Leg Pain, Foot Pain Skin: Reports: Erythema Neurological: Reports: No Symptoms Psychiatric: Reports: No Symptoms ED EXAM, GENERAL - Physical Exam Exam: See Below Exam Limited By: No Limitations General Appearance: Alert, WD/WN, No Apparent Distress, Obese Eye Exam: Bilateral Eye: EOMI Throat/Mouth: Normal Voice, No Airway Compromise Head: Atraumatic, Normocephalic Neck: Supple Respiratory/Chest: No Respiratory Distress, Lungs Clear, Normal Breath Sounds, No Accessory Muscle Use Cardiovascular: Normal Peripheral Pulses, Regular Rate, Rhythm GI/Abdominal: Normal Bowel Sounds, Soft, Non-Tender (Male) Exam: Deferred Rectal (Males) Exam: Deferred Back Exam: No: CVA Tenderness (L), CVA Tenderness (R), Muscle Spasm Extremities: Increased Warmth (right root), Redness (right lower leg and foot), Other (tenderness with palpation of lower portion right calf). No: Mottled, Pallor Neurological: Alert, Oriented, No Motor/Sensory Deficits Psychiatric: Normal Affect, Normal Mood Skin Exam: Erythema (right leg/foot), Increased Warmth, Other (healing incision over right great toe). No: Mottled, Pallor, Zoster-Like Rash Course - Vital Signs Last Recorded V/S: Last Vital Signs Temp 37.4 C 06/07/19 11:41 Pulse 88 06/07/19 11:41 Resp 20 06/07/19 11:41 BP 131/70 06/07/19 11:41 Pulse Ox 98 06/07/19 11:41 - Orders/Labs/Meds Labs: Laboratory Tests 06/07/19 06/07/19 06/07/19 Range/Units 12:04 12:04 12:04 WBC 12.7 H (4.0-10.2) K/uL RBC 4.85 (4.33-5.41) M/uL Hgb 14.2 (13.1-16.8) g/dL Hct 42.8 (39.0-49.0) % MCV 88.2 (84.0-98.0) fL MCH 29.3 (28.2-33.3) pg MCHC 33.2 (31.7-36.0) g/dL RDW 13.8 (11.2-14.1) % Plt Count 230 D (150-350) K/uL Neut % (Auto) 80.4 H (45.0-80.0) % Lymph % (Auto) 8.5 L (10.0-50.0) % [place] % (Auto) 8.3 (2.0-14.0) % Eos % (Auto) 2.2 (0.0-5.0) % Baso % (Auto) 0.6 (0.0-2.0) % Neut # (Auto) 10.19 H (1.40-7.00) K/uL Lymph # (Auto) 1.08 (0.50-3.50) K/uL [place] # (Auto) 1.05 H (0.00-1.00) K/uL Eos # (Auto) 0.28 (0.00-0.50) K/uL Baso # (Auto) 0.07 (0.00-0.20) K/uL D-Dimer, Quantitative (0-400) ng/mL Sodium 135 L (136-145) mmol/L Potassium 3.9 (3.5-5.1) mmol/L Chloride 98 (98-107) mmol/L Carbon Dioxide 27.0 (21.0-32.0) mmol/L BUN 19 H (7-18) mg/dL Creatinine 0.80 (0.51-1.17) mg/dL Est Cr Clr Drug Dosing 107.78 mL/min Estimated GFR (MDRD) > 60 mL/min Glucose 199 H (74-106) mg/dL Hemoglobin A1c (4.3-5.7) % Lactic Acid 1.4 (0.4-2.0) mmol/L Calcium 8.5 (8.5-10.1) mg/dL 10/19/19 10/19/19 Range/Units 12:04 12:04 WBC (4.0-10.2) K/uL RBC (4.33-5.41) M/uL Hgb (13.1-16.8) g/dL Hct (39.0-49.0) % MCV (84.0-98.0) fL MCH (28.2-33.3) pg MCHC (31.7-36.0) g/dL RDW (11.2-14.1) % Plt Count (150-350) K/uL Neut % (Auto) (45.0-80.0) % Lymph % (Auto) (10.0-50.0) % [place] % (Auto) (2.0-14.0) % Eos % (Auto) (0.0-5.0) % Baso % (Auto) (0.0-2.0) % Neut # (Auto) (1.40-7.00) K/uL Lymph # (Auto) (0.50-3.50) K/uL [place] # (Auto) (0.00-1.00) K/uL Eos # (Auto) (0.00-0.50) K/uL Baso # (Auto) (0.00-0.20) K/uL D-Dimer, Quantitative 695 H (0-400) ng/mL Sodium (136-145) mmol/L Potassium (3.5-5.1) mmol/L Chloride (98-107) mmol/L Carbon Dioxide (21.0-32.0) mmol/L BUN (7-18) mg/dL Creatinine (0.51-1.17) mg/dL Est Cr Clr Drug Dosing mL/min Estimated GFR (MDRD) mL/min Glucose (74-106) mg/dL Hemoglobin A1c 7.6 H (4.3-5.7) % Lactic Acid (0.4-2.0) mmol/L Calcium (8.5-10.1) mg/dL Meds: Medications Discontinued Medications Generic Name Dose Route Start Last Admin Trade Name Freq PRN Reason Stop Dose Admin Cephalexin 500 mg 06/07/19 12:27 06/07/19 13:17 Keflex PO 06/07/19 12:28 500 mg ONETIME ONE Administration - Re-Assessments/Exams Free Text/Narrative Re-Assessment/Exam: 06/07/19 16:08 DDimer and WBC elevated. Suspect cellulitis, however need to rule out DVT. Unable to perform US study here due to weekend timeframe. Call placed to [facility] ER and discussed patient with . He accepted patient for transfer to [facility] and will arrange for US evaluation. Once DVT is ruled in/ out, and therapeutic plan in place, patient may return to our facility if inpatient stay is recommended. Single dose keflex given prior to transfer. Departure - Departure Time of Disposition: 13:00 Disposition: DC/Tfer to Acute Hospital 02 Condition: Good Clinical Impression: Pain and swelling of right lower leg - Discharge Information *PRESCRIPTION DRUG MONITORING PROGRAM REVIEWED*: Not Applicable *COPY OF PRESCRIPTION DRUG MONITORING REPORT IN PATIENT JEFFREY: Not Applicable Referrals: Atiya Smallwood PA [Primary Care Provider] - Forms: ED Department Discharge Additional Instructions: Drive directly to [facility] ER. We spoke to . They will look at the leg and get an ultrasound study to see if there is a blood clot causing the pain/ swelling/redness. Once the leg is assessed and treatment plan formulated, you may be recommended to be admitted to the hospital. You may elect to return to our facility for IV antibiotics if that is what is recommended.
== END 2019-06-07 13:25 ==
LOC: LL.ED 11:23
DX: M79.661 Pain in right lower leg (principal); M79.89 Other specified soft tissue disorders; I10 Essential (primary) hypertension; G47.30 Sleep apnea, unspecified; E11.40 Type 2 diabetes mellitus with diabetic neuropathy, unspecified; E66.9 Obesity, unspecified; Z68.41 Body mass index [BMI] 40.0-44.9, adult; Z79.82 Long term (current) use of aspirin; Z79.899 Other long term (current) drug therapy; Z79.4 Long term (current) use of insulin
CPT/HCPCS: 36415; 80048; 83036; 83605; 85025; 85379; 99284; A9270

== ENCOUNTER 2019-08-28 09:36 | Day surgery (SDC) | payer BC ==
[~2019-08-28 09:36] MED LIST: Sodium Chloride 0.9% 10 ML Syringe FLUSH PRN
[2019-08-28] MEDS ORDERED: Propofol 200 MG/20 ML SDV ONE ×2 (10:22→10:33)
--- NOTE | 2019-08-28 10:22 | PCM.HPR ---
H & P Addendum review - H & P Addendum Review Date of Original H & P: 08/08/19 Date Reviewed: 08/28/19 Time Reviewed: 10:22 Patient was Examined: No Changes
[2019-08-28] MEDS: Lactated Ringers 1,000 ML IV SCH (10:31)
--- NOTE | 2019-08-28 11:01 | PCM.OPNOTE ---
- General Post-Op/Procedure Note Date of Surgery/Procedure: 08/28/19 Operative Procedure(s): Colonoscopy Findings: normal Pre Op Diagnosis: Hx Polyps Post-Op Diagnosis: Same Anesthesia Technique: MAC Primary Surgeon: Denzel Reid Complications: None Condition: Good
--- NOTE | 2019-08-28 12:47 | OR ---
Date of Procedure: 08/28/2019 PREOPERATIVE DIAGNOSIS: History of colon polyps. POSTOPERATIVE DIAGNOSIS: Normal colonoscopy. PROCEDURE: Colonoscopy. ANESTHESIA: IV sedation. DESCRIPTION OF PROCEDURE: The patient was brought to the procedure room where he was placed on his left side and IV sedation administered. Digital rectal exam was performed which was normal. Colonoscope was inserted and advanced to the level of the cecum without difficulty. Cecal position was confirmed by identifying the appendiceal lumen and ileocecal valve. Prep was fair with some thick stool remaining that was mostly irrigated and suctioned. Upon withdrawing the scope, the ascending, transverse, and descending colon were normal in appearance. Sigmoid colon and rectum were normal. Retroflexion was normal. Air was removed and the scope withdrawn. The patient tolerated the procedure well and returned to Recovery in stable condition. Recommended surveillance colonoscopy again in 5 years. PENELOPE MURPHY MD /[id number]
== END 2019-08-28 12:20 | disposition home or self-care (01) ==
LOC: LL.SDS 09:36
PROVIDERS: ATTEND Surgery
DX: Z12.11 Encounter for screening for malignant neoplasm of colon (principal); E11.42 Type 2 diabetes mellitus with diabetic polyneuropathy; E11.610 Type 2 diabetes mellitus with diabetic neuropathic arthropathy; E11.621 Type 2 diabetes mellitus with foot ulcer; L97.509 Non-pressure chronic ulcer of other part of unspecified foot with unspecified severity; I10 Essential (primary) hypertension; E78.5 Hyperlipidemia, unspecified; K21.9 Gastro-esophageal reflux disease without esophagitis; G47.33 Obstructive sleep apnea (adult) (pediatric); E66.01 Morbid (severe) obesity due to excess calories; Z68.42 Body mass index [BMI] 45.0-49.9, adult; Z86.010 Personal history of colon polyps; Z79.4 Long term (current) use of insulin; Z79.899 Other long term (current) drug therapy; Z99.89 Dependence on other enabling machines and devices
CPT/HCPCS: 82962; J2704; J7120

== ENCOUNTER 2024-12-31 22:26 | Emergency (ER) | payer BC ==
[2024-12-31 23:12] LABS: BASOPHILS ABSOLUTE AUTO 0.06 K/uL (0.00-0.20); BASOPHILS PERCENT AUTO 0.6 % (0.0-2.0); EOSINOPHILS ABSOLUTE AUTO 0.61 K/uL (0.00-0.50); EOSINOPHILS PERCENT AUTO 6.3 % (0.0-5.0); HEMATOCRIT 40.4 % (39.0-49.0); HEMOGLOBIN 13.8 g/dL (13.1-16.8); IMMATURE GRAN ABSOLUTE AUTO 0.03 10^3/uL (0.00-0.04); IMMATURE GRAN PERCENT AUTO 0.3 % (0.0-0.4); LYMPHOCYTES ABSOLUTE AUTO 0.87 K/uL (0.50-3.50); MEAN CORPUSCULAR HEMOGLOBIN 29.9 pg (28.2-33.3); MEAN CORPUSCULAR HGB CONC 34.2 g/dL (31.7-36.0); MEAN CORPUSCULAR VOLUME 87.6 fL (84.0-98.0); MONOCYTES ABSOLUTE AUTO 0.83 K/uL (0.00-1.00); MONOCYTES PERCENT AUTO 8.6 % (2.0-14.0); NEUTROPHILS ABSOLUTE AUTO 7.29 K/uL (1.40-7.00); NEUTROPHILS PERCENT AUTO 75.2 % (45.0-80.0); PLATELET COUNT,PLT 219 K/uL (150-350); RED BLOOD CELL COUNT 4.61 M/uL (4.33-5.41); RED CELL DISTRIBUTION WIDTH 13.2 % (11.2-14.1); WHITE BLOOD CELL COUNT,WBC 9.7 K/uL (4.0-10.2)
[2024-12-31 23:20] LABS: ANION GAP 7.9 meq/L (7-15); BLOOD UREA NITROGEN,BUN 25 mg/dL (7-18); CARBON DIOXIDE,CO2 28.1 mmol/L (21.0-32.0); CHLORIDE,CL 100 mmol/L (98-107); CREATININE 0.96 mg/dL (0.51-1.17); GLUCOSE RANDOM 165 mg/dL (70-99); SODIUM,NA 136 mmol/L (136-145)
[2024-12-31 23:22] LABS: ESTIMATED GFR 88 mL/min (>=60)
[2024-12-31 23:30] LABS: LACTIC ACID 0.9 mmol/L (0.4-2.0)
== END 2024-12-31 23:50 | disposition home or self-care (01) ==
LOC: LL.ED 22:26
DX: L03.115 Cellulitis of right lower limb (principal); I10 Essential (primary) hypertension; E11.9 Type 2 diabetes mellitus without complications; E66.9 Obesity, unspecified; E78.00 Pure hypercholesterolemia, unspecified; M19.90 Unspecified osteoarthritis, unspecified site; Z79.899 Other long term (current) drug therapy; Z79.82 Long term (current) use of aspirin; Z79.4 Long term (current) use of insulin; Z79.1 Long term (current) use of non-steroidal anti-inflammatories (NSAID)
CPT/HCPCS: 36415; 80048; 83605; 85025; 99283

== ENCOUNTER 2025-04-16 09:46 | Day surgery (SDC) | payer BC ==
[~2025-04-16 09:46] MED LIST changes: +Midazolam 1 MG/ML 2 ML SDV ONE; +Propofol 200 MG/20 ML SDV ONE
[2025-04-16] MEDS: Lactated Ringers 1,000 ML IV SCH (10:00)
== END 2025-04-16 12:18 | disposition home or self-care (01) ==
LOC: LL.SDS 09:46
PROVIDERS: ATTEND Surgery
DX: Z12.11 Encounter for screening for malignant neoplasm of colon (principal); K63.5 Polyp of colon; E78.00 Pure hypercholesterolemia, unspecified; I10 Essential (primary) hypertension; E11.9 Type 2 diabetes mellitus without complications; E66.9 Obesity, unspecified; Z68.30 Body mass index [BMI] 30.0-30.9, adult; Z68.41 Body mass index [BMI] 40.0-44.9, adult; Z79.4 Long term (current) use of insulin; Z79.84 Long term (current) use of oral hypoglycemic drugs; Z79.82 Long term (current) use of aspirin; Z79.899 Other long term (current) drug therapy
CPT/HCPCS: 00811; J2250; J2704; J7120